=== PATIENT | female | born 1980 | race Caucasian/White ===

== ENCOUNTER 2018-05-23 07:17 | Emergency (ER) | payer MEDICAID ==
[2018-05-23 07:21] VITALS: O2SAT 98; BMI 22.3
--- NOTE | 2018-05-23 07:44 | ED PDOC ---
HPI: Chest Pain Time Seen by Provider: 05/23/18 07:20 Additional History Per: Patient Additional Complaint(s): silvestre [id number] 37 y/o F with PMH of gastritis and lupus comes to the ER c/o 2 days hx of generalized chest pain radiating to abdomen/RUQ. Sharp pain, 10/10, changes with respiration, denies any alleviating factors, associated with nausea, denies any fever, dizziness, blurred vision, palpitations, abdominal pain or dysuria. Patient has been taking ibuprofen at home with some help. PMH: Lupus and Gastritis PSH: Cyst removed from ovary Allg: NKDA Meds: Ibuprofen SH: Denies alcohol, smoking or drug use FH: Denies Past Medical History Vital Signs: Last Vital Signs Temp 98.6 F 05/23/18 07:20 Pulse 97 H 05/23/18 07:20 Resp 17 05/23/18 07:20 BP 125/62 05/23/18 07:20 Pulse Ox 98 05/23/18 07:20 - Family History Family History: States: No Known Family Hx - Home Medications Home Medications: Ambulatory Orders Medication Instructions Recorded Naproxen [Naprosyn] 500 mg PO BID PRN 15 Days #30 05/23/18 tablet - Allergies Allergies/Adverse Reactions: Allergies Allergy/AdvReac Type Severity Reaction Status Date / Time No Known Allergies Allergy Verified 05/23/18 07:27 Physical Exam - Physical Exam Appears: Positive for: Uncomfortable Head Exam: Positive for: NORMAL INSPECTION Skin: Positive for: Normal Color Eye Exam: Positive for: Normal appearance ENT: Positive for: Normal ENT Inspection Neck: Positive for: Normal Cardiovascular/Chest: Positive for: Regular Rate, Rhythm. Negative for: Edema, Bradycardia, Tachycardia Respiratory: Positive for: Normal Breath Sounds. Negative for: Decreased Breath Sounds, Accessory Muscle Use, Crackles Gastrointestinal/Abdominal: Positive for: Normal Exam, Bowel Sounds, Soft. Negative for: Tenderness Back: Positive for: Normal Inspection. Negative for: L CVA Tenderness, R CVA Tenderness Extremity: Positive for: Normal ROM Neurological/Psych: Positive for: Awake, Alert, Normal Tone, research nurse II-XII - Laboratory Results Result Diagrams: 05/23/18 07:40 05/23/18 07:40 - ECG O2 Sat by Pulse Oximetry: 98 - Progress ED Course And Treament: A/P: 37 y/o F with PMH of gastritis and lupus comes to the ER c/o 2 days hx of generalized chest pain radiating to abdomen/RUQ. - CBC - CMP - Trop - UA - EKG - CXR - ZOfran - Toradol Case discussed with Dr. Carbajal Patient understands and agrees with plan Labs: WNL CXR: No acute changes EKG: Reviewed Re-evaluation Time: 09:34 Condition: Improved Disposition - Clinical Impression Clinical Impression: Atypical chest pain - Disposition Referrals: Hector Soto MD [Staff Provider] - [facility] [Provider Group] Disposition: Routine/Home Disposition Time: 09:44 Condition: FAIR Additional Instructions: Follow up with PMD/Rheum in 2-3 days Return to ER if symptoms get worse or do not resolve in 2-3 days Prescriptions: Naproxen [Naprosyn] 500 mg PO BID PRN 15 Days #30 tablet PRN Reason: Pain, Moderate (4-7) Instructions: Chest Pain That Is Not Caused by the Heart (DC), Costochondritis (DC) Forms: [employer] (Bahamian) Print Language: BELARUSIAN
[2018-05-23 07:51] LABS: BASO % 0.3 % (0.0-2.0); HEMOGLOBIN 11.3 g/dL (12.0-16.0); LYMPH # 0.9 K/uL (1.0-4.3); LYMPH % 11.7 % (20.0-40.0); MEAN CELL VOLUME 91.4 fl (81.0-99.0); MEAN CORPUSCULAR HEMOGLOBIN 30.7 pg (27.0-31.0); MEAN CORPUSCULAR HGB CONC 33.5 g/dL (33.0-37.0); MEAN PLATELET VOLUME 8.6 fl (7.2-11.7); MONO # 0.5 K/uL (0.0-0.8); MONO % 6.3 % (0.0-10.0); NEUT # 6.5 K/uL (1.8-7.0); NEUT % 81.7 % (50.0-75.0); NRBC % 0.1 % (0.0-0.0); RBC 3.68 Mil/uL (3.80-5.20); RED CELL DISTRIBUTION WIDTH 12.6 % (11.5-14.5); WHITE BLOOD COUNT 7.9 K/uL (4.8-10.8)
[2018-05-23 08:27] LABS: SQUAMOUS EPITHIAL 2 /hpf (0-5); URINE BACTERIA RARE (<OCC); URINE BILIRUBIN NEGATIVE (NEGATIVE); URINE BLOOD LARGE (NEGATIVE); URINE CALCIUM OXALATE CRYSTALS OCC /hpf (<OCC); URINE CLARITY SLIGHTY-CLOUDY (Clear); URINE COLOR YELLOW (YELLOW); URINE GLUCOSE (UA) NEG (NEGATIVE); URINE LEUKOCYTE ESTERASE NEG Leu/uL (Negative); URINE PROTEIN 30 mg/dL (NEGATIVE); URINE UROBILINOGEN 0.2-1.0 mg/dL (0.2-1.0)
[2018-05-23 08:33] LABS: ALB/GLOB RATIO 0.9 (1.0-2.1); ALT/SGPT 22 U/L (9-52); AST/SGOT 32 U/L (14-36); BLOOD UREA NITROGEN 7 mg/dl (7-17); GFR NON-AFRICAN AMERICAN > 60
--- NOTE | 2018-05-23 08:40 | CARD ---
APPROVED REPORT Date of service: 05/23/2018 EKG Measurement Heart [id number] <Conclusion> Normal sinus rhythm Incomplete right bundle branch block Otherwise normal ECG
--- NOTE | 2018-05-23 09:54 | RAD ---
Date of service: 05/23/2018 PROCEDURE: CHEST RADIOGRAPH, 1 VIEW HISTORY: generalized chest pain COMPARISON: None available. FINDINGS: LUNGS: Clear. PLEURA: No pneumothorax or pleural fluid seen. CARDIOVASCULAR: No aortic atherosclerotic calcification present. Normal. OSSEOUS STRUCTURES: No significant abnormalities. VISUALIZED UPPER ABDOMEN: Normal. OTHER FINDINGS: None. IMPRESSION: No active disease.
[2018-05-23 10:14] VITALS: BP 100/54; PULSE 73; RESP 18; TEMP 98.7
== END 2018-05-23 10:13 | disposition home or self-care (01) ==
LOC: H.ER 07:17
DX: R07.9 Chest pain, unspecified (principal); M32.9 Systemic lupus erythematosus, unspecified; R07.89 Other chest pain
CPT/HCPCS: 71045; 80053; 81003; 81025; 84484; 85025; 93005; 96374; 96375; 99285; J1885; J2405

== ENCOUNTER 2018-05-24 13:54 | Inpatient (IN) | payer MEDICAID ==
[2018-05-24 13:55] VITALS: BMI 22.3
--- NOTE | 2018-05-24 14:32 | ED PDOC ---
HPI: Chest Pain Time Seen by Provider: 05/24/18 14:22 Chief Complaint (Nursing): Chest Pain Chief Complaint (Provider): Chest pain, bodyaches History Per: Patient History/Exam Limitations: no limitations Onset/Duration Of Symptoms: Days Current Symptoms Are (Timing): Still Present Additional Complaint(s): 37yo female, with history of lupus, comes to ER with complaints of bodyaches, chest pain and back pain. Patient was seen in this ER yesterday with same complaints, had a normal workup and was sent home on NSAIDS. Patient reports the pain is persistent but denies any shortness of breath, fever, leg pain or swelling. No additional complaints. PMD: Meli Past Medical History Reviewed: Historical Data, Nursing Documentation, Vital Signs Vital Signs: Last Vital Signs Temp 98.8 F 05/24/18 14:00 Pulse 127 H 05/24/18 14:00 Resp 19 05/24/18 14:00 BP 118/77 05/24/18 14:00 Pulse Ox 98 05/24/18 14:00 - Medical History PMH: Arthritis Denies: Chronic Kidney Disease - Surgical History Surgical History: No Surg Hx - Family History Family History: States: No Known Family Hx - Home Medications Home Medications: Ambulatory Orders Medication Instructions Recorded Naproxen [Naprosyn] 500 mg PO BID PRN 15 Days #30 05/23/18 tablet - Allergies Allergies/Adverse Reactions: Allergies Allergy/AdvReac Type Severity Reaction Status Date / Time No Known Allergies Allergy Verified 05/23/18 07:27 Review of Systems ROS Statement: Except As Marked, All Systems Reviewed And Found Negative Constitutional: Negative for: Fever, Chills Cardiovascular: Positive for: Chest Pain Respiratory: Negative for: Shortness of Breath Musculoskeletal: Positive for: Back Pain Physical Exam - Reviewed Nursing Documentation Reviewed: Yes Vital Signs Reviewed: Yes - Physical Exam Appears: Positive for: Non-toxic, No Acute Distress Head Exam: Positive for: ATRAUMATIC, NORMAL INSPECTION, NORMOCEPHALIC Skin: Positive for: Normal Color Eye Exam: Positive for: EOMI, PERRL Cardiovascular/Chest: Positive for: Regular Rate, Rhythm, Tachycardia. Negative for: Chest Non Tender (+ reproducible anterior chest wall tenderness) Respiratory: Positive for: Normal Breath Sounds. Negative for: Wheezing Gastrointestinal/Abdominal: Positive for: Soft Back: Positive for: Normal Inspection Extremity: Positive for: Normal ROM Neurological/Psych: Positive for: Awake, Alert - ECG O2 Sat by Pulse Oximetry: 98 (RA) Pulse Ox Interpretation: Normal Medical Decision Making Medical Decision Making: Unlikely that chest pain is due to PE, however given 2nd ED visit and tachycardia, will get CTA Chest to r/o PE EKG: Sinus tachycardia at 120, incomplete RBBB -- Scribe Attestation: Documented by Arleth Shelton, acting as a scribe for Preston Carbajal MD Provider Scribe Attestation: All medical record entries made by the Scribe were at my direction and personally dictated by me. I have reviewed the chart and agree that the record accurately reflects my personal performance of the history, physical exam, medical decision making, and the department course for this patient. I have also personally directed, reviewed, and agree with the discharge instructions and disposition. Disposition - Clinical Impression Clinical Impression: Chest pain - Patient ED Disposition Is Patient to be Admitted: Transfer of Care - Disposition Disposition: Transfer of Care Disposition Time: 16:00 Condition: FAIR Forms: [employer] (Korean) Patient Signed Over To: Nadia Méndez (pending CT and reeval)
--- NOTE | 2018-05-24 16:38 | ED PDOC ---
- Laboratory Results Result Diagrams: 05/24/18 21:01 05/24/18 21:01 - ECG O2 Sat by Pulse Oximetry: 98 (RA) Pulse Ox Interpretation: Normal Medical Decision Making Medical Decision Makin Patient signed out to me by Dr. Carbajal pending CTA chest. 20:01 CTA Chest FINDINGS: PULMONARY ARTERIES No evidence of central or segmental pulmonary embolism is seen. AORTA There is no evidence for aneurysm or dissection of the thoracic aorta. LUNGS Minimal pneumonic consolidation and/or atelectasis in the posterior right and left lung base. PLEURAL SPACES No pneumothorax evident. A small right pleural effusion is present. HEART Normal heart size. No pericardial effusion. LYMPH NODES No lymphadenopathy is evident. BONES No focal osseous abnormality or acute fracture. UPPER ABDOMEN Images of the upper abdomen are unremarkable. IMPRESSION: 1. No identification of PE. 2. Posterior right and left lower lobe pneumonic consolidation. 3. Trace right pleural effusion. 20:54 pt aware of results. abx started. Paging Dr. Vasquez for admission 21:15 Patient's EKG reveals sinus tachycardia in the 120s. PMD, Dr. Bautista does not admit to the ED. Will instead admit to medical services on-call, Dr. Vasquez who accepted patient. Diagnoses of pneumonia and Lupus. Used [employer] mail handler #[id number] to communicate this information to patient. She demonstrates full understanding of plan for admission. iv fluids and pain meds ordered echo ordered Scribe Attestation: Documented by Arleth Shelton, acting as a scribe for Nadia Méndez MD Provider Scribe Attestation: All medical record entries made by the Scribe were at my direction and personally dictated by me. I have reviewed the chart and agree that the record accurately reflects my personal performance of the history, physical exam, medical decision making, and the department course for this patient. I have also personally directed, reviewed, and agree with the discharge instructions and disposition. Disposition Counseled Patient/Family Regarding: Studies Performed, Diagnosis - Clinical Impression Clinical Impression: Chest pain, Pneumonia - POA Present On Arrival: None - Disposition Disposition: Hospitalized as Observation Patient Disposition Time: 21:15 Condition: FAIR
[2018-05-24] MEDS ORDERED: Iodixanol 320 MG/ML 100 ML BOTTLE IV ONE (18:23)
[2018-05-24] MEDS ORDERED: Sodium Chloride 0.9% 50 ML IV ONE (18:23)
[2018-05-24] MEDS ORDERED: Sodium Chloride 0.9% 1,000 ML IV STA (20:36)
[2018-05-24] MEDS ORDERED: Azithromycin 500 MG in Sodium Chloride 0.9% 250 ML IVPB STA (20:37)
[2018-05-24 21:06] LABS: BASO % 0.4 % (0.0-2.0); EOS % 0.4 % (0.0-4.0); HEMOGLOBIN 10.5 g/dL (12.0-16.0); LYMPH # 1.2 K/uL (1.0-4.3); LYMPH % 16.1 % (20.0-40.0); MEAN CELL VOLUME 91.6 fl (81.0-99.0); MEAN CORPUSCULAR HEMOGLOBIN 30.6 pg (27.0-31.0); MEAN CORPUSCULAR HGB CONC 33.4 g/dL (33.0-37.0); MEAN PLATELET VOLUME 8.4 fl (7.2-11.7); MONO # 0.4 K/uL (0.0-0.8); MONO % 5.5 % (0.0-10.0); NEUT # 5.8 K/uL (1.8-7.0); NEUT % 77.6 % (50.0-75.0); RBC 3.43 Mil/uL (3.80-5.20); RED CELL DISTRIBUTION WIDTH 12.4 % (11.5-14.5); WHITE BLOOD COUNT 7.4 K/uL (4.8-10.8)
[2018-05-24 21:19] LABS: ALB/GLOB RATIO 0.9 (1.0-2.1); ALBUMIN 3.8 g/dL (3.5-5.0); ALT/SGPT 17 U/L (9-52); AST/SGOT 25 U/L (14-36); BLOOD UREA NITROGEN 13 mg/dl (7-17); CALCIUM 8.8 mg/dL (8.4-10.2); GFR NON-AFRICAN AMERICAN > 60
[2018-05-24] MEDS ORDERED: cefTRIAXone (Rocephin) 1 gm Inj ONE (21:23)
[2018-05-24] MEDS ORDERED: Azithromycin 500 MG IV IVPB ONE (21:24)
[2018-05-25] MEDS ORDERED: Pneumococcal 23-Valent Vaccine IM ONE (06:00)
--- NOTE | 2018-05-25 08:28 | CARD ---
APPROVED REPORT Date of service: 05/24/2018 EKG Measurement Heart [id number] <Conclusion> Sinus tachycardia Incomplete right bundle branch block Borderline ECG
--- NOTE | 2018-05-25 09:19 | CT ---
Date of service: 05/24/2018 PROCEDURE: CT Chest with contrast (Pulmonary Angiogram) HISTORY: Chest pain, tachycardia COMPARISON: None available. TECHNIQUE: Axial computed tomography images were obtained of the chest in the pulmonary arterial phase of enhancement. Coronal and sagittal reformatted images were created and reviewed. Intravenous contrast dose: 90 mL Visipaque 320 Radiation dose: Total exam DLP = 194.62 mGy-cm. This CT exam was performed using one or more of the following dose reduction techniques: Automated exposure control, adjustment of the mA and/or kV according to patient size, and/or use of iterative reconstruction technique. FINDINGS: PULMONARY ARTERIES: No central or segmental pulmonary emboli appreciated.. AORTA: No acute findings. No thoracic aortic aneurysm. No aortic atherosclerotic calcification or mural plaque present. LUNGS: Trace bibasilar subsegmental atelectatic changes peripheral and subpleural. PLEURAL SPACES: No pneumothorax. Trace posterior dependent pleural thickening. Possible trace right pleural effusion. HEART: Unremarkable. No cardiomegaly. No significant pericardial effusion. LYMPH NODES: No lymphadenopathy. BONES, CHEST WALL: Unremarkable. No fracture or destructive lesion OTHER FINDINGS: Unremarkable. IMPRESSION: . No pulmonary embolus. Trace subsegmental subpleural dependent atelectatic changes. Trace posterior pleural thickening. Possible trace minimal right pleural effusion. Concordant results (preliminary interpretation) provided by [employer].
[2018-05-25] MEDS: Azithromycin 500 MG in Sodium Chloride 0.9% 250 ML IVPB SCH (09:20)
[2018-05-25 11:11] LABS: ABG ALLEN TEST YES; ARTERIAL BLOOD GAS HCO3 26.4 mmol/L (21-28); ARTERIAL BLOOD GAS O2 SAT 98.2 % (95-98); ARTERIAL BLOOD GAS PCO2 36 mm/Hg (35-45); ARTERIAL BLOOD GAS PH 7.46 (7.35-7.45); ARTERIAL BLOOD GAS PO2 84 mm/Hg (80-100); ARTERIAL BLOOD GAS TCO2 26.7 mmol/L (22-28)
[2018-05-25 11:38] LABS: T3 0.762 nmol/L (1.49-2.60)
[2018-05-25] MEDS: Sodium Chloride 0.9% 1,000 ML IV SCH (14:01)
--- NOTE | 2018-05-25 14:42 | CP.PCM.CON ---
<Donovan Olmos - Last Filed: 05/25/18 16:07> History of Present Illness - History of Present Illness History of Present Illness: Donovan Olmos, PGY-1, Cardiology Consult Note for Dr. Fu 37 year old female with past medical history of SLE and endometriosis presents to [facility] for right upper quadrant pain radiating to the chest starting 11 days ago. Patient reports that the pain is worse with breathing and has no remitting factors. Patient is visibly in distress on presentation. Patient reports the pain is worst along the right ribs. Patient also reports dizziness improved with rest. Patient denies shortness of breath, nausea, fevers, chills, diaphoresis. PMH: as stated above PSH: surgery for endometriosis (unknown what was done) Allergies: NKDA FMHx: father had stroke at 64, mother has HLD SHx: denies smoking, recreational drug use, occasionally drinks alcohol PMD: Dr. Valenzuela Product Manager E Commerce: Dr. Morfin Review of Systems - Review of Systems Review of Systems: except for what was mentioned above Past Patient History - Infectious Disease Hx of Infectious Diseases: None - Past Social History Smoking Status: Never Smoked - CARDIAC Hx Cardiac Disorders: No - PULMONARY Hx Respiratory Disorders: No - NEUROLOGICAL Hx Neurological Disorder: No - HEENT Hx HEENT Problems: No - RENAL Hx Chronic Kidney Disease: No - ENDOCRINE/METABOLIC Hx Endocrine Disorders: Yes Hx Systemic Lupus Erythematosus: Yes - HEMATOLOGICAL/ONCOLOGICAL Hx Blood Disorders: No - INTEGUMENTARY Hx Dermatological Problems: No - MUSCULOSKELETAL/RHEUMATOLOGICAL Hx Arthritis: Yes Hx Falls: No - GASTROINTESTINAL Hx Gastrointestinal Disorders: No - GENITOURINARY/GYNECOLOGICAL Hx Genitourinary Disorders: No - PSYCHIATRIC Hx Psychophysiologic Disorder: No Hx Substance Use: No - SURGICAL HISTORY Hx Surgeries: Yes Other/Comment: ovarian cyst removal - ANESTHESIA Hx Anesthesia: Yes Hx Anesthesia Reactions: No Meds Allergies/Adverse Reactions: Allergies Allergy/AdvReac Type Severity Reaction Status Date / Time No Known Allergies Allergy Verified 05/23/18 07:27 - Medications Medications: Current Medications Acetaminophen (Tylenol 325mg Tab) 650 mg PO Q6 PRN PRN Reason: Pain, Mild (1-3) Ceftriaxone Sodium 1 gm/ (Sodium Chloride) 100 mls @ 100 mls/hr IVPB DAILY [place]; Protocol Last Admin: 05/25/18 11:55 Dose: 100 mls/hr Azithromycin 500 mg/ Sodium (Chloride) 250 mls @ 250 mls/hr IVPB DAILY [facility]; Protocol Last Admin: 05/25/18 09:20 Dose: 250 mls/hr Sodium Chloride (Sodium Chloride 0.9%) 1,000 mls @ 75 mls/hr IV .[id number] [place] Stop: 05/26/18 11:31 Last Admin: 05/25/18 14:01 Dose: 75 mls/hr Ketorolac Tromethamine (Toradol) 30 mg IVP Q6 PRN PRN Reason: Pain, moderate (4-7) Morphine Sulfate (Morphine) 2 mg IVP Q4 PRN PRN Reason: Pain, severe (8-10) Last Admin: 05/25/18 14:03 Dose: 2 mg Physical Exam - Constitutional Appears: In Acute Distress, Agitated - Head Exam Head Exam: ATRAUMATIC, NORMAL INSPECTION, NORMOCEPHALIC - Eye Exam Eye Exam: EOMI, PERRL - ENT Exam ENT Exam: Mucous Membranes Moist - Respiratory Exam Respiratory Exam: Clear to Auscultation Bilateral, NORMAL BREATHING PATTERN - Cardiovascular Exam Cardiovascular Exam: Tachycardia, REGULAR RHYTHM, +S1, +S2 - GI/Abdominal Exam GI & Abdominal Exam: Normal Bowel Sounds, Soft. absent: Tenderness - Extremities Exam Extremities exam: Positive for: full ROM, normal inspection. Negative for: pedal edema - Neurological Exam Neurological exam: Alert, CN II-XII Intact, Normal Gait, Oriented x3 - Skin Skin Exam: Dry, Intact, Normal Color Results - Vital Signs Recent Vital Signs: Last Vital Signs Temp 98.6 F 05/25/18 11:45 Pulse 147 H 05/25/18 11:45 Resp 18 05/25/18 11:45 BP 103/69 05/25/18 11:45 Pulse Ox 96 05/25/18 11:45 - Labs Result Diagrams: 05/24/18 21:01 05/24/18 21:01 Labs: Laboratory Results - last 24 hr 05/24/18 05/24/18 05/24/18 16:25 21:01 21:01 WBC 7.4 RBC 3.43 L Hgb 10.5 L Hct 31.4 L MCV 91.6 MCH 30.6 MCHC 33.4 RDW 12.4 Plt Count 208 MPV 8.4 Neut % (Auto) 77.6 H Lymph % (Auto) 16.1 L Hernando % (Auto) 5.5 Eos % (Auto) 0.4 Baso % (Auto) 0.4 Neut # (Auto) 5.8 Lymph # (Auto) 1.2 Hernando # (Auto) 0.4 Eos # (Auto) 0.0 Baso # (Auto) 0.0 pCO2 pO2 HCO3 ABG pH ABG Total CO2 ABG O2 Saturation ABG Base Excess Lisandro Test ABG Potassium A-a O2 Difference Glucose Lactate FiO2 Sodium 139 Potassium 3.6 Chloride 103 Carbon Dioxide 29 Anion Gap 11 BUN 13 Creatinine 0.7 Est GFR ( Amer) > 60 Est GFR (Non-Af Amer) > 60 Random Glucose 105 Calcium 8.8 Total Bilirubin 0.3 AST 25 ALT 17 Alkaline Phosphatase 90 Troponin I < 0.0120 Total Protein 8.1 Albumin 3.8 Globulin 4.3 H Albumin/Globulin Ratio 0.9 L Thyroxine (T4) Total T3 TSH 3rd Generation Arterial Blood Potassium 05/25/18 05/25/18 05/25/18 09:50 09:53 12:05 WBC RBC Hgb Hct MCV MCH MCHC RDW Plt Count MPV Neut % (Auto) Lymph % (Auto) Hernando % (Auto) Eos % (Auto) Baso % (Auto) Neut # (Auto) Lymph # (Auto) Hernando # (Auto) Eos # (Auto) Baso # (Auto) pCO2 36 pO2 84 HCO3 26.4 ABG pH 7.46 H ABG Total CO2 26.7 ABG O2 Saturation 98.2 H ABG Base Excess 1.9 Lisandro Test Yes ABG Potassium 3.7 A-a O2 Difference 21.0 Glucose 114 H Lactate 0.7 FiO2 21.0 Sodium 138.0 Potassium Chloride 108.0 H Carbon Dioxide Anion Gap BUN Creatinine Est GFR ( Amer) Est GFR (Non-Af Amer) Random Glucose Calcium Total Bilirubin AST ALT Alkaline Phosphatase Troponin I < 0.0120 Total Protein Albumin Globulin Albumin/Globulin Ratio Thyroxine (T4) 7.07 Total T3 0.762 L TSH 3rd Generation 0.63 Arterial Blood Potassium 3.7 Assessment & Plan - Assessment and Plan (Free Text) Assessment: Sinus tachycardia SLE Plan: Chest pain with ACS rule out vs. pneumonia vs. SLE Sinus tachycardia SLE Chest CT: no PE, trace subsegmental subpleural dependent atelectatic changes. Trace posterior pleural thickening. Possible trace minimal right pleural effusion EKG: sinus tachycardia with HR: 120 Tropx2: negative TSH: 0.63 T3: 0.762 T4: 7.07 Will follow up echocardiogram Medications: Ceftriaxone Azithromycin - Date & Time Date: 05/25/18 Time: 14:42 <Ajit Fu - Last Filed: 05/25/18 23:22> Meds - Medications Medications: Current Medications Acetaminophen (Tylenol 325mg Tab) 650 mg PO Q6 PRN PRN Reason: Pain, Mild (1-3) Cyclobenzaprine HCl (Flexeril) 10 mg PO HS PRN PRN Reason: Muscle spasm Ceftriaxone Sodium 1 gm/ (Sodium Chloride) 100 mls @ 100 mls/hr IVPB DAILY [place]; Protocol Last Admin: 05/25/18 11:55 Dose: 100 mls/hr Azithromycin 500 mg/ Sodium (Chloride) 250 mls @ 250 mls/hr IVPB DAILY [place]; Pro tocol Last Admin: 05/25/18 09:20 Dose: 250 mls/hr Sodium Chloride (Sodium Chloride 0.9%) 1,000 mls @ 75 mls/hr IV .[id number] [place] Stop: 05/26/18 11:31 Last Admin: 05/25/18 14:01 Dose: 75 mls/hr Sodium Chloride (Sodium Chloride 0.9%) 1,000 mls @ 999 mls/hr IV .[id number] [place] Stop: 05/26/18 15:36 Last Admin: 05/25/18 16:34 Dose: 999 mls/hr Ketorolac Tromethamine (Toradol) 30 mg IVP Q6 PRN PRN Reason: Pain, moderate (4-7) Morphine Sulfate (Morphine) 2 mg IVP Q4 PRN PRN Reason: Pain, severe (8-10) Last Admin: 05/25/18 21:11 Dose: 2 mg Results - Vital Signs Recent Vital Signs: Last Vital Signs Temp 98.1 F 05/25/18 21:39 Pulse 155 H 05/25/18 21:39 Resp 21 05/25/18 21:39 BP 119/87 05/25/18 21:39 Pulse Ox 96 05/25/18 21:39 - Labs Result Diagrams: 05/24/18 21:01 05/24/18 21:01 Labs: Laboratory Results - last 24 hr 05/25/18 05/25/18 05/25/18 09:50 09:53 12:05 pCO2 36 pO2 84 HCO3 26.4 ABG pH 7.46 H ABG Total CO2 26.7 ABG O2 Saturation 98.2 H ABG Base Excess 1.9 Lisandro Test Yes ABG Potassium 3.7 A-a O2 Difference 21.0 Sodium 138.0 Chloride 108.0 H Glucose 114 H Lactate 0.7 FiO2 21.0 POC Glucose (mg/dL) Troponin I < 0.0120 Thyroxine (T4) 7.07 Total T3 0.762 L TSH 3rd Generation 0.63 Arterial Blood Potassium 3.7 Influenza Typ A,B (EIA) 05/25/18 05/25/18 05/25/18 15:30 20:30 21:11 pCO2 pO2 HCO3 ABG pH ABG Total CO2 ABG O2 Saturation ABG Base Excess Lisandro Test ABG Potassium A-a O2 Difference Sodium Chloride Glucose Lactate FiO2 POC Glucose (mg/dL) 141 H Troponin I < 0.0120 Thyroxine (T4) Total T3 TSH 3rd Generation Arterial Blood Potassium Influenza Typ A,B (EIA) Negative for flu a/b Attending/Attestation - Attestation I have personally seen and examined this patient.: Yes I have fully participated in the care of the patient.: Yes I have reviewed all pertinent clinical information: Yes Notes (Text): 05/25/18 23:21 chest pain pleuritic in nature echo tachycardia 2' to pain IVF hydration pain control ESR/CRP
[2018-05-25] MEDS ORDERED: Sodium Chloride 0.9% 1,000 ML IV SCH (15:45)
--- NOTE | 2018-05-25 16:57 | PCM.RRT ---
<Tavon Rocha - Last Filed: 05/25/18 17:00> HEALTH SCIENCE INSTRUCTOR Nurse Assessment - Situation HEALTH SCIENCE INSTRUCTOR Reason for Call: Chest Pain I.Reason for HEALTH SCIENCE INSTRUCTOR - A) Acute Change in Patient: (Select all that apply): Chest Pain Subjective: 37 yo talia with PMH of SLE and endometriosis was admitted to [facility] due to chest pain. HEALTH SCIENCE INSTRUCTOR was called today at 3:20 due to patient complaining of chest pain. Medical team arrived, Patient was complaining of chest pain, she was awake and alert, her heart rate was on 140s, and tachypnea. Patient report pain is worsen when deep breathing and with palpation of chest, Patient was placed on IVF, given toradol and ativan. EKG was WNL except for sinus tackycardia. After medication patient heart rate improved, and symptoms improved. Urine tox sent HEALTH SCIENCE INSTRUCTOR was done at 3:40 with final diagnosis SLE induce chest pain. PCP notified PMD: Dr. Valenzuela Pumping Station Supervisor: Dr. Morfin Intervention IVFB 1000 Toradol 30 Ativan 0.5 urine tox Case discussed with dr garcia - Neurological Status (Select all that apply): Alert - Constitutional Appears: Well, Non-toxic, No Acute Distress - Head Head Exam: ATRAUMATIC, NORMAL INSPECTION, NORMOCEPHALIC - Eyes Eye Exam: EOMI, Normal appearance, PERRL - Respiratory Exam Respiratory Exam: Chest Wall Tenderness, Clear to Ausculation Bilateral, NORMAL BREATHING PATTERN - Cardiovascular Exam Cardiovascular Exam: REGULAR RHYTHM, +S1, +S2 - GI/Abdominal Exam GI & Abdominal Exam: Soft, Normal Bowel Sounds - Neurological Exam Neurological Exam: Alert, Awake, CN II-XII Intact, Normal Gait, Oriented x3 - Extremities Exam Extremities Exam: Full ROM, Normal Capillary Refill, Normal Inspection <Tanya Garcia - Last Filed: 05/25/18 17:38> Attending/Attestation - Attestation I have personally seen and examined this patient.: Yes I have fully participated in the care of the patient.: Yes I have reviewed all pertinent clinical information, including history, physical exam and plan: Yes Notes (Text): HEALTH SCIENCE INSTRUCTOR called due to Tachycardia to 150 Responded to the HEALTH SCIENCE INSTRUCTOR with the residents. Sinus Tachycardia Hx of SLE - EKG : sinus rhythm - BP stable 115/88 , saturation =99% on 2 liters, HR= 140, afebrile -Reviewed labs , imaging - CTA of Chest : no PE, TSH normal, Troponin x 2 negative - Bolus IVF 1 liter , Toradol stat for pain, Ativan 0.5 mg IV x 1 - Pt's Pumping Station Supervisor - DR Fu notified of even , discussed case - rec IVF hydration and pain mgt - Pt's PMD - Dr Vasquez/ Marysol Brooks notified of event
--- NOTE | 2018-05-25 19:52 | CARD ---
APPROVED REPORT Date of service: 05/25/2018 EXAM: Two-dimensional and M-mode echocardiogram with Doppler and color Doppler. Other Information Quality : GoodRhythm : Tachycardia Technically limited study due to Pt done sitting up INDICATION Pericardial Effusion 2D DIMENSIONS IVSd0.98 (0.7-1.1cm)LVDd3.45 (3.9-5.9cm) PWd1.20 (0.7-1.1cm)IVSs1.16 (0.8-1.2cm) LVDs2.71 (2.5-4.0cm)FS (%) 21.4 % PWs1.47 (0.8-1.2cm) M-Mode DIMENSIONS Left Atrium (MM)2.75 (2.5-4.0cm)IVSd0.93 (0.7-1.1cm) Aortic Root2.20 (2.2-3.7cm)LVDd3.61 (4.0-5.6cm) Aortic Cusp Exc.1.77 (1.5-2.0cm)PWd1.10 (0.7-1.1cm) IVSs1.31 cmFS (%) 27 % LVDs2.63 (2.0-3.8cm)PWs1.63 cm Mitral Valve E/A ratio0.0 TDI E/Lateral E'0.0E/Medial E'0.0 LEFT VENTRICLE The left ventricle is normal size. There is normal left ventricular wall thickness. The left ventricular systolic function is normal. The estimated ejection fraction is 55-60% No regional wall motion abnormalities noted.. Transmitral Doppler flow pattern is Grade I-abnormal relaxation pattern. No left ventricle thrombus noted on this study. There is no ventricular septal defect visualized. There is no left ventricular aneurysm. There is no mass noted in the left ventricle. RIGHT VENTRICLE The right ventricle is normal size. There is normal right ventricular wall thickness. The right ventricular systolic function is normal. ATRIA The left atrium size is normal. The right atrium size is normal. The interatrial septum is intact with no evidence for an atrial septal defect. AORTIC VALVE The aortic valve is normal in structure. No aortic regurgitation is present. There is no aortic valvular stenosis. There is no aortic valvular vegetation. MITRAL VALVE The mitral valve is normal in structure. There is no evidence of mitral valve prolapse. There is no mitral valve stenosis. There is no mitral valve regurgitation noted. TRICUSPID VALVE The tricuspid valve is normal in structure. There is no tricuspid valve regurgitation noted. There is no tricuspid valve prolapse or vegetation. There is no tricuspid valve stenosis. PULMONIC VALVE The pulmonary valve is normal in structure. There is no pulmonic valvular regurgitation. There is no pulmonic valvular stenosis. GREAT VESSELS The aortic root is normal in size. The ascending aorta is normal in size. The pulmonary artery is normal. The IVC is normal in size and collapses >50% with inspiration. PERICARDIAL EFFUSION There is small circumferential pericardial effusion. No signs of tamponade. There is no pleural effusion. <Conclusion> Technically difficult study The estimated ejection fraction is 55-60% Transmitral Doppler flow pattern is Grade I-abnormal relaxation pattern. The left atrium size is normal. The right atrium size is normal. The right ventricular systolic function is normal. There is no tricuspid valve regurgitation noted. There is small circumferential pericardial effusion. No signs of tamponade.
--- NOTE | 2018-05-25 21:27 | PCM.RRT ---
SLOT TECHNICIAN Nurse Assessment - Situation Location: [address] [place] [address] Room Number: 406-2 SLOT TECHNICIAN Reason for Call: Chest Pain, Tachycardia SLOT TECHNICIAN Called By: RN - IV IV Inserted during SLOT TECHNICIAN?: No IV Fluids Initiated During SLOT TECHNICIAN?: N/A - Respiratory Oxygen Delivery Method: Nasal Cannula Received Nebulizer Treatments: No Was the Patient Ventilated with Bag/Mask 100% O2?: No Secretions Suctioned?: No Was the Patient Intubated?: No Was the Patient Placed on a Ventilator?: No - Medication Medications Administered During SLOT TECHNICIAN: Morphine 2mg IV x1 dose given by Geeta Molina RN - Diagnostic Test Ordered EKG: Yes (Sinus Tachycardia) Chest X-Ray: No CT Scan: No CPR started during SLOT TECHNICIAN?: No - Vital Signs Vital Signs: Rapid Response Vital Sign Blood Pressure 126/76 Pulse Rate 163 Respiratory Rate 24 Temperature 98.1 F Oxygen Saturation 97 - Time SLOT TECHNICIAN Ended Time SLOT TECHNICIAN Ended: 21:10 - Vital Signs at end of SLOT TECHNICIAN Vital Signs at end of SLOT TECHNICIAN: Rapid Response End Vital Sign Blood Pressure 112/70 Pulse Rate 157 Respiratory Rate 35 Temperature 98.1 F O2 Sat by Pulse Oximetry 98 - Recommendations SLOT TECHNICIAN Level of Care Recommendations: Remain in current setting I.Reason for SLOT TECHNICIAN - A) Acute Change in Patient: Subjective: SLOT TECHNICIAN SLOT TECHNICIAN Time: 9:00pm SLOT TECHNICIAN Location: [facility] SLOT TECHNICIAN Arrival: 9:01 SLOT TECHNICIAN Reason: Chest pain, sinus tachy S: Pt is a 37 yo F with a pmh of lupus and endometriosis admitted to [facility] due to pnemonia, tachycardia, and lupus SLOT TECHNICIAN was called due to pleuritic chest pain across anterior chest wall with radiation to ribs, reproducible to palpation. O: Vitals: BP: 118/82 HR: 160 RR: 24 O2Sat 93% on RA General: In acute distress, tachypneic HEENT: Nasal cannula 2L Cardiac: Tachycardic, no m/r/g Chest: Chest pain reproducible to palpation R and L chest wall Resp: CTA, no wheezes, rales, or rhonchi Abdo: soft, nontender to palpation Extrem: no edema Skin: dry SLOT TECHNICIAN intervention: EKG- sinus tachycardia Morphine 2mg Xanax 0.5mg Once Flexeril 10mg PO HS PRN A/P: 37 yo F with a pmh of lupus and endometriosis admitted to [facility] due to pnemonia, tachycardia, and lupus SLOT TECHNICIAN called for pleuritic chest pain, sinus tachy SLOT TECHNICIAN Outcome: Symptoms improved after intervention. Pt had a previous SLOT TECHNICIAN called earlier today where Trops x2 negative, CTA of chest no PE, TSH normal. SLOT TECHNICIAN vitals: BP:112/70 RR 35 O2 Sat:98% on 2 L, HR 157 T: 98.1 SLOT TECHNICIAN end: 9:18pm SLOT TECHNICIAN Leader: Dr. Lentz SLOT TECHNICIAN residents: Dr. Betancourt PGY [address] Hdz PGY 1
[2018-05-26] MEDS: Sodium Chloride 0.9% 1,000 ML IV SCH (01:06)
[2018-05-26] MEDS: Azithromycin 500 MG in Sodium Chloride 0.9% 250 ML IVPB SCH (09:13)
--- NOTE | 2018-05-26 09:31 | US ---
Date of service: 05/26/2018 HISTORY: ruq pain, tenderness COMPARISON: CT angiogram chest 05/24/2018. TECHNIQUE: Sonographic evaluation of the right upper quadrant of the abdomen. FINDINGS: LIVER: Measures 18.1 cm in length. Normal echogenicity of the liver parenchyma. No mass. No intrahepatic bile duct dilatation. GALLBLADDER: Gallbladder appears moderately distended mural thickening up to 3.5 mm and small cayla cholecystic fluid collections measuring up to 2.3 cm greatest dimension anteriorly but smaller posteriorly. No cholelithiasis identified within the gallbladder lumen and the pattern may reflect acalculous cholecystitis. Clinically correlate further. Consider follow-up nuclear better renal scan for added characterization. COMMON BILE DUCT: Measures 3.9 mm. No stones. No dilatation. PANCREAS: Unremarkable as visualized. No mass. No ductal dilatation. RIGHT KIDNEY: Measures 12.2 cm in length. Normal echogenicity. No calculus, mass, or hydronephrosis. AORTA: No aneurysmal dilatation. IVC: Unremarkable. OTHER FINDINGS: None . IMPRESSION: Mural thickening the gallbladder is identified with pericholecystic fluid suspicious for potential acalculous cholecystitis. Normal CBD caliber. No intrahepatic biliary dilatation identified. Calculus cholecystitis. Consider follow-up nuclear better be scan for added characterization. Prior chest CT 05/24/2018 does not fully captured the gallbladder fossa but does not show gross pericholecystic fluid collection at the upper portion. Consider follow-up abdomen pelvis CT with contrast as well. The remainder of the examination appears unremarkable.
--- NOTE | 2018-05-26 10:26 | CP.PCM.CON ---
<Miguel A Cote - Last Filed: 05/26/18 11:06> History of Present Illness - History of Present Illness History of Present Illness: General Surgery Consult for Dr. Wayne Reason for consult: abdominal pain, questionable cholecystitis 37 F with PMH that includes SLE presents to [facility] for complaint of abdominal pain. Patient was seen and evaluated on the telemetry smith. Patient states that abdominal pain began Wednesday. Patient reports that pain began suddenly and has gotten progressively worse. She denies fever/chills or nausea/vomiting. She rates pain as severe located in the epigatric and RUQ without radiation. She describes it as constant and sharp. Movement/positions/palpation aggravtes her symptoms while nothing specifically alleviates it. She reports generalized malaise and fatigue. She has never pain like this in the past. ABUS was done which showed questionable pericholecystic fluid and GB wall thickening. CT chest with PE protocol was done upon admission and was negative for PE. Patient appears visible uncomfortable in pain. DEVELOPMENT TECHNICAL LEAD was called yesterday twice for chest pain and tachycardia; one at 16:55 and the second at 21:01. PMD: Dr. Vasquez PMH: SLE PSH: Denies ALL: NKDA Review of Systems - Review of Systems All systems: reviewed and no additional remarkable complaints except (as per HPI) Past Patient History - Infectious Disease Hx of Infectious Diseases: None - Past Social History Smoking Status: Never Smoked - CARDIAC Hx Cardiac Disorders: No - PULMONARY Hx Respiratory Disorders: No - NEUROLOGICAL Hx Neurological Disorder: No - HEENT Hx HEENT Problems: No - RENAL Hx Chronic Kidney Disease: No - ENDOCRINE/METABOLIC Hx Endocrine Disorders: Yes Hx Systemic Lupus Erythematosus: Yes - HEMATOLOGICAL/ONCOLOGICAL Hx Blood Disorders: No - INTEGUMENTARY Hx Dermatological Problems: No - MUSCULOSKELETAL/RHEUMATOLOGICAL Hx Arthritis: Yes Hx Falls: No - GASTROINTESTINAL Hx Gastrointestinal Disorders: No - GENITOURINARY/GYNECOLOGICAL Hx Genitourinary Disorders: No - PSYCHIATRIC Hx Psychophysiologic Disorder: No Hx Substance Use: No - SURGICAL HISTORY Hx Surgeries: Yes Other/Comment: ovarian cyst removal - ANESTHESIA Hx Anesthesia: Yes Hx Anesthesia Reactions: No Meds Allergies/Adverse Reactions: Allergies Allergy/AdvReac Type Severity Reaction Status Date / Time No Known Allergies Allergy Verified 05/23/18 07:27 - Medications Medications: Current Medications Acetaminophen (Tylenol 325mg Tab) 650 mg PO Q6 PRN PRN Reason: Pain, Mild (1-3) Cyclobenzaprine HCl (Flexeril) 10 mg PO HS PRN PRN Reason: Muscle spasm Last Admin: 05/26/18 00:04 Dose: 10 mg Ceftriaxone Sodium 1 gm/ (Sodium Chloride) 100 mls @ 100 mls/hr IVPB [facility]ILY [facility]; Protocol Last Admin: 05/26/18 09:12 Dose: 100 mls/hr Azithromycin 500 mg/ Sodium (Chloride) 250 mls @ 250 mls/hr IVPB [facility]; Protocol Last Admin: 05/26/18 09:13 Dose: 250 mls/hr Sodium Chloride (Sodium Chloride 0.9%) 1,000 mls @ 75 mls/hr IV .[id number] [facility] Stop: 05/26/18 11:31 Last Admin: 05/26/18 01:06 Dose: Not Given Ketorolac Tromethamine (Toradol) 30 mg IVP Q6 PRN PRN Reason: Pain, moderate (4-7) Last Admin: 05/26/18 05:14 Dose: 30 mg Morphine Sulfate (Morphine) 2 mg IVP Q4 PRN PRN Reason: Pain, severe (8-10) Last Admin: 05/26/18 01:57 Dose: 2 mg Physical Exam - Constitutional Appears: In Acute Distress (due to abd pain) - Head Exam Head Exam: ATRAUMATIC, NORMOCEPHALIC - Eye Exam Eye Exam: EOMI, Normal appearance Pupil Exam: PERRL - ENT Exam ENT Exam: Mucous Membranes Dry - Respiratory Exam Respiratory Exam: NORMAL BREATHING PATTERN - Cardiovascular Exam Cardiovascular Exam: Tachycardia - GI/Abdominal Exam GI & Abdominal Exam: Guarding (voluntary), Soft, Tenderness (epigastrium and RUQ; severe). absent: Distended, Firm, Hernia, Mass, Rebound, Rigid - Rectal Exam Rectal Exam: Deferred - Extremities Exam Extremities exam: Positive for: normal capillary refill, pedal pulses present. Negative for: calf tenderness - Back Exam Back exam: absent: CVA tenderness (L), CVA tenderness (R) - Neurological Exam Neurological exam: Alert, CN II-XII Intact, Oriented x3 - Psychiatric Exam Psychiatric exam: Anxious - Skin Skin Exam: Dry, Normal Color, Warm Results - Vital Signs Recent Vital Signs: Last Vital Signs Temp 100.1 F H 05/26/18 07:50 Pulse 133 H 05/26/18 07:50 Resp 18 05/26/18 07:50 BP 102/70 05/26/18 07:50 Pulse Ox 98 05/26/18 07:50 - Labs Result Diagrams: 05/24/18 21:01 05/24/18 21:01 Labs: Laboratory Results - last 24 hr 05/25/18 05/25/18 05/25/18 09:50 09:53 12:05 pCO2 36 pO2 84 HCO3 26.4 ABG pH 7.46 H ABG Total CO2 26.7 ABG O2 Saturation 98.2 H ABG Base Excess 1.9 Lisandro Test Yes ABG Potassium 3.7 A-a O2 Difference 21.0 Sodium 138.0 Chloride 108.0 H Glucose 114 H Lactate 0.7 FiO2 21.0 POC Glucose (mg/dL) Troponin I < 0.0120 Thyroxine (T4) 7.07 Total T3 0.762 L TSH 3rd Generation 0.63 Arterial Blood Potassium 3.7 Influenza Typ A,B (EIA) 05/25/18 05/25/18 05/25/18 15:30 20:30 21:11 pCO2 pO2 HCO3 ABG pH ABG Total CO2 ABG O2 Saturation ABG Base Excess Lisandro Test ABG Potassium A-a O2 Difference Sodium Chloride Glucose Lactate FiO2 POC Glucose (mg/dL) 141 H Troponin I < 0.0120 Thyroxine (T4) Total T3 TSH 3rd Generation Arterial Blood Potassium Influenza Typ A,B (EIA) Negative for flu a/b Assessment & Plan - Assessment and Plan (Free Text) Assessment: 37F with PMH SLE presents with upper abdominal pain Plan: -NPO -IVF -Pain control -Stat labs -Stat CXR -CT abd/pelvis with PO & IV contrast -HIDA -Serial abd exams -Monitor for bowel function -Discussed with Dr. Neel Cote PGY2 - Date & Time Date: 05/26/18 Time: 11:04 <Renny Shaikh - Last Filed: 05/26/18 11:28> Meds - Medications Medications: Current Medications Acetaminophen (Tylenol 325mg Tab) 650 mg PO Q6 PRN PRN Reason: Pain, Mild (1-3) Cyclobenzaprine HCl (Flexeril) 10 mg PO HS PRN PRN Reason: Muscle spasm Last Admin: 05/26/18 00:04 Dose: 10 mg Ceftriaxone Sodium 1 gm/ (Sodium Chloride) 100 mls @ 100 mls/hr IVPB DAILY [facility]; Protocol Last Admin: 05/26/18 09:12 Dose: 100 mls/hr Azithromycin 500 mg/ Sodium (Chloride) 250 mls @ 250 mls/hr IVPB DAILY [facility]; Protocol Last Admin: 05/26/18 09:13 Dose: 250 mls/hr Lactated Ringer's (Lactated Ringer's) 1,000 mls @ 125 mls/hr IV .Q8H [facility] Last Admin: 05/26/18 11:13 Dose: 125 mls/hr Morphine Sulfate (Morphine) 2 mg IVP Q4 PRN PRN Reason: Pain, severe (8-10) Last Admin: 05/26/18 01:57 Dose: 2 mg Results - Vital Signs Recent Vital Signs: Last Vital Signs Temp 100.1 F H 05/26/18 07:50 Pulse 152 H 05/26/18 11:06 Resp 18 05/26/18 07:50 BP 102/70 05/26/18 11:06 Pulse Ox 98 05/26/18 07:50 - Labs Result Diagrams: 05/26/18 11:00 05/24/18 21:01 Labs: Laboratory Results - last 24 hr 05/25/18 05/25/18 05/25/18 09:50 12:05 15:30 WBC RBC Hgb Hct MCV MCH MCHC RDW Plt Count MPV Neut % (Auto) Lymph % (Auto) [place] % (Auto) Eos % (Auto) Baso % (Auto) Neut # (Auto) Lymph # (Auto) [place] # (Auto) Eos # (Auto) Baso # (Auto) POC Glucose (mg/dL) 141 H Troponin I < 0.0120 Thyroxine (T4) 7.07 Total T3 0.762 L TSH 3rd Generation 0.63 Influenza Typ A,B (EIA) 05/25/18 05/25/18 05/26/18 20:30 21:11 11:00 WBC 9.4 RBC 3.21 L Hgb 9.8 L Hct 29.2 L MCV 90.9 MCH 30.7 MCHC 33.7 RDW 12.5 Plt Count 259 MPV 8.4 Neut % (Auto) 83.3 H Lymph % (Auto) 10.1 L [place] % (Auto) 6.3 Eos % (Auto) 0.1 Baso % (Auto) 0.2 Neut # (Auto) 7.9 H Lymph # (Auto) 1.0 [place] # (Auto) 0.6 Eos # (Auto) 0.0 Baso # (Auto) 0.0 POC Glucose (mg/dL) Troponin I < 0.0120 Thyroxine (T4) Total T3 TSH 3rd Generation Influenza Typ A,B (EIA) Negative for flu a/b Assessment & Plan - Assessment and Plan (Free Text) Plan: 37yo F Hx of Lupus admitted with chest pain, being treated for pneumonia. Surgery consulted for evaluation of cholecystitis. Pt reports epigastric/RUQ and back pain worsening over 3 day period. Pain not associated with food intact, denies any nausea, vomiting, fever, or chills. Denies any previous similar symptoms. PMHx: Lupus PSHx: denies gen: awake, alert, mild distress HEENT: NC/AT, EOMI, PERRLA, no scleral icterus no acute respiratory distress abd: soft, ND, tenderness to RUQ/Epigastric area, ?guarding, no rebound, no peritoneal signs 37yo F with abdominal pain -U/S review - no evidence of cholelithiasis, unlikely acalculous cholecystitis -Stat labs - CBC, CMP, Lipase, Amylase -CT A/p - r/o other intraabdominal pathology -HIDA - r/o acute cholecystitis -NPO -IV hydration -pain control -will continue to follow patient
[2018-05-26] MEDS ORDERED: Metoprolol 1 mg/ml Inj IVP ONE (10:35)
[2018-05-26] MEDS ORDERED: Iohexol 240 (50 ml) PO ONE (10:44)
--- NOTE | 2018-05-26 11:09 | CP.PCM.CON ---
History of Present Illness - History of Present Illness History of Present Illness: 37yF with hx of possible acalculous cholecystitis presents with chest and abdominal pain. Pain is Vas 6-8/10 which is better with pain medication and rest and worse with leaning forward and movement. She denies inciting event and states that pain stated several days ago. She denies urinary incontinence or extremity weakness. Surgery in evaluating for management of possible cholecystitis, and performing more radiology studies. Pt currently is on morphine for pain control. Past Patient History - Infectious Disease Hx of Infectious Diseases: None - Past Social History Smoking Status: Never Smoked - CARDIAC Hx Cardiac Disorders: No - PULMONARY Hx Respiratory Disorders: No - NEUROLOGICAL Hx Neurological Disorder: No - HEENT Hx HEENT Problems: No - RENAL Hx Chronic Kidney Disease: No - ENDOCRINE/METABOLIC Hx Endocrine Disorders: Yes Hx Systemic Lupus Erythematosus: Yes - HEMATOLOGICAL/ONCOLOGICAL Hx Blood Disorders: No - INTEGUMENTARY Hx Dermatological Problems: No - MUSCULOSKELETAL/RHEUMATOLOGICAL Hx Arthritis: Yes Hx Falls: No - GASTROINTESTINAL Hx Gastrointestinal Disorders: No - GENITOURINARY/GYNECOLOGICAL Hx Genitourinary Disorders: No - PSYCHIATRIC Hx Psychophysiologic Disorder: No Hx Substance Use: No - SURGICAL HISTORY Hx Surgeries: Yes Other/Comment: ovarian cyst removal - ANESTHESIA Hx Anesthesia: Yes Hx Anesthesia Reactions: No Meds Allergies/Adverse Reactions: Allergies Allergy/AdvReac Type Severity Reaction Status Date / Time No Known Allergies Allergy Verified 05/23/18 07:27 - Medications Medications: Current Medications Acetaminophen (Tylenol 325mg Tab) 650 mg PO Q6 PRN PRN Reason: Pain, Mild (1-3) Cyclobenzaprine HCl (Flexeril) 10 mg PO HS PRN PRN Reason: Muscle spasm Last Admin: 05/26/18 00:04 Dose: 10 mg Ceftriaxone Sodium 1 gm/ (Sodium Chloride) 100 mls @ 100 mls/hr IVPB DAILY [facility]; Protocol Last Admin: 05/26/18 09:12 Dose: 100 mls/hr Azithromycin 500 mg/ Sodium (Chloride) 250 mls @ 250 mls/hr IVPB DAILY [facility]; Protocol Last Admin: 05/26/18 09:13 Dose: 250 mls/hr Lactated Ringer's (Lactated Ringer's) 1,000 mls @ 125 mls/hr IV .Q8H [facility] Morphine Sulfate (Morphine) 2 mg IVP Q4 PRN PRN Reason: Pain, severe (8-10) Last Admin: 05/26/18 01:57 Dose: 2 mg Physical Exam - Constitutional Additional comments: mild distress - GI/Abdominal Exam Additional comments: +BS. mild to mod TTP RUQ, equivocal ren sign - Extremities Exam Additional comments: MAEW, sensation grossly intact, 5/5 handgrip b/l, DP flex 5/5 b/l. - Back Exam Additional comments: limited ROM, nontender to palpation, negative SLR Results - Vital Signs Recent Vital Signs: Last Vital Signs Temp 100.1 F H 05/26/18 07:50 Pulse 133 H 05/26/18 07:50 Resp 18 05/26/18 07:50 BP 102/70 05/26/18 07:50 Pulse Ox 98 05/26/18 07:50 - Labs Result Diagrams: 05/24/18 21:01 05/24/18 21:01 Labs: Laboratory Results - last 24 hr 05/25/18 05/25/18 05/25/18 09:50 09:53 12:05 pCO2 36 pO2 84 HCO3 26.4 ABG pH 7.46 H ABG Total CO2 26.7 ABG O2 Saturation 98.2 H ABG Base Excess 1.9 Lisandro Test Yes ABG Potassium 3.7 A-a O2 Difference 21.0 Sodium 138.0 Chloride 108.0 H Glucose 114 H Lactate 0.7 FiO2 21.0 POC Glucose (mg/dL) Troponin I < 0.0120 Thyroxine (T4) 7.07 Total T3 0.762 L TSH 3rd Generation 0.63 Arterial Blood Potassium 3.7 Influenza Typ A,B (EIA) 05/25/18 05/25/18 05/25/18 15:30 20:30 21:11 pCO2 pO2 HCO3 ABG pH ABG Total CO2 ABG O2 Saturation ABG Base Excess Lisandro Test ABG Potassium A-a O2 Difference Sodium Chloride Glucose Lactate FiO2 POC Glucose (mg/dL) 141 H Troponin I < 0.0120 Thyroxine (T4) Total T3 TSH 3rd Generation Arterial Blood Potassium Influenza Typ A,B (EIA) Negative for flu a/b Assessment & Plan - Assessment and Plan (Free Text) Assessment: 37yF with chest and abdominal pain starting several days ago, pain improved with morphine. Plan: 1. Pt may have dilaudid 1mg iv q3h prn severe pain. 2. PT 3. Will follow surgery recs, and psychiatry recs 4. Care as per primary team
[2018-05-26] MEDS: Lactated Ringer's 1,000 ML IV SCH ×2 (11:13→20:18)
[2018-05-26 11:15] LABS: BASO % 0.2 % (0.0-2.0); EOS % 0.1 % (0.0-4.0); HEMOGLOBIN 9.8 g/dL (12.0-16.0); LYMPH % 10.1 % (20.0-40.0); MEAN CELL VOLUME 90.9 fl (81.0-99.0); MEAN CORPUSCULAR HEMOGLOBIN 30.7 pg (27.0-31.0); MEAN CORPUSCULAR HGB CONC 33.7 g/dL (33.0-37.0); MEAN PLATELET VOLUME 8.4 fl (7.2-11.7); MONO # 0.6 K/uL (0.0-0.8); MONO % 6.3 % (0.0-10.0); NEUT # 7.9 K/uL (1.8-7.0); NEUT % 83.3 % (50.0-75.0); RBC 3.21 Mil/uL (3.80-5.20); RED CELL DISTRIBUTION WIDTH 12.5 % (11.5-14.5); WHITE BLOOD COUNT 9.4 K/uL (4.8-10.8)
--- NOTE | 2018-05-26 11:29 | RAD ---
Date of service: 05/26/2018 HISTORY: evaluate for free air COMPARISON: Chest radiograph 05/23/2018. TECHNIQUE: 1 view obtained. FINDINGS: LUNGS: Bilateral hemidiaphragms are silhouetted suggesting likely atelectasis or infiltrates. The former is favored. Minimal bilateral pleural effusions are not excluded and are symmetric if present. No pneumothorax bilaterally. PLEURA: As above. CARDIOVASCULAR: No aortic atherosclerotic calcification present. Normal cardiac size. No pulmonary vascular congestion. OSSEOUS STRUCTURES: No significant abnormalities. VISUALIZED UPPER ABDOMEN: Normal. OTHER FINDINGS: None. IMPRESSION: Interval trace bilateral pleural effusions and basilar atelectasis are favored over infiltrates. Clinically correlate further. Exam otherwise unremarkable.
[2018-05-26 11:33] LABS: ALB/GLOB RATIO 0.8 (1.0-2.1); ALBUMIN 3.3 g/dL (3.5-5.0); ALT/SGPT 17 U/L (9-52); AMYLASE 44 U/L (30-110); AST/SGOT 26 U/L (14-36); BLOOD UREA NITROGEN 15 mg/dl (7-17); CALCIUM 8.9 mg/dL (8.4-10.2); GFR NON-AFRICAN AMERICAN > 60; LIPASE 11 U/L (23-300)
[2018-05-26] MEDS ORDERED: Iohexol 300 100 ML IJ ONE (15:19)
--- NOTE | 2018-05-26 15:31 | CP.PCM.CON ---
History of Present Illness - History of Present Illness History of Present Illness: consult requested for depression pt is 37 F with PMH that includes SLE presents to [facility] for complaint of abdominal pain. pt currently being treated for acute cholecystitis , noted by staff to be depressed pt on evaluation. cooperative with good eye contact, speech is soft, reported feeling down at times because of her medical condition and havin episodes of difficult breathing, thought form coherent, denied any current changes in sleep or appetite denied perceptual disturbances, non elicited denied suicidal or homicidal ideation, alert awake ox3 Past Patient History - Infectious Disease Hx of Infectious Diseases: None - Past Social History Smoking Status: Never Smoked - CARDIAC Hx Cardiac Disorders: No - PULMONARY Hx Respiratory Disorders: No - NEUROLOGICAL Hx Neurological Disorder: No - HEENT Hx HEENT Problems: No - RENAL Hx Chronic Kidney Disease: No - ENDOCRINE/METABOLIC Hx Endocrine Disorders: Yes Hx Systemic Lupus Erythematosus: Yes - HEMATOLOGICAL/ONCOLOGICAL Hx Blood Disorders: No - INTEGUMENTARY Hx Dermatological Problems: No - MUSCULOSKELETAL/RHEUMATOLOGICAL Hx Arthritis: Yes Hx Falls: No - GASTROINTESTINAL Hx Gastrointestinal Disorders: No - GENITOURINARY/GYNECOLOGICAL Hx Genitourinary Disorders: No - PSYCHIATRIC Hx Psychophysiologic Disorder: No Hx Substance Use: No - SURGICAL HISTORY Hx Surgeries: Yes Other/Comment: ovarian cyst removal - ANESTHESIA Hx Anesthesia: Yes Hx Anesthesia Reactions: No Meds Allergies/Adverse Reactions: Allergies Allergy/AdvReac Type Severity Reaction Status Date / Time No Known Allergies Allergy Verified 05/23/18 07:27 - Medications Medications: Current Medications Acetaminophen (Tylenol 325mg Tab) 650 mg PO Q6 PRN PRN Reason: Pain, Mild (1-3) Cyclobenzaprine HCl (Flexeril) 10 mg PO HS PRN PRN Reason: Muscle spasm Last Admin: 05/26/18 00:04 Dose: 10 mg Ceftriaxone Sodium 1 gm/ (Sodium Chloride) 100 mls @ 100 mls/hr IVPB DAILY [facility]; Protocol Last Admin: 05/26/18 09:12 Dose: 100 mls/hr Azithromycin 500 mg/ Sodium (Chloride) 250 mls @ 250 mls/hr IVPB DAILY [facility]; Protocol Last Admin: 05/26/18 09:13 Dose: 250 mls/hr Lactated Ringer's (Lactated Ringer's) 1,000 mls @ 125 mls/hr IV .Q8H [place] Last Admin: 05/26/18 11:13 Dose: 125 mls/hr Morphine Sulfate (Morphine) 2 mg IVP Q4 PRN PRN Reason: Pain, severe (8-10) Last Admin: 05/26/18 12:42 Dose: 2 mg Results - Vital Signs Recent Vital Signs: Last Vital Signs Temp 99.2 F 05/26/18 12:05 Pulse 142 H 05/26/18 12:05 Resp 18 05/26/18 12:05 BP 101/66 05/26/18 12:05 Pulse Ox 90 L 05/26/18 12:05 - Labs Result Diagrams: 05/26/18 11:00 05/26/18 11:00 Labs: Laboratory Results - last 24 hr 05/25/18 05/25/18 05/25/18 15:30 20:30 21:11 WBC RBC Hgb Hct MCV MCH MCHC RDW Plt Count MPV Neut % (Auto) Lymph % (Auto) [place] % (Auto) Eos % (Auto) Baso % (Auto) Neut # (Auto) Lymph # (Auto) [place] # (Auto) Eos # (Auto) Baso # (Auto) Sodium Potassium Chloride Carbon Dioxide Anion Gap BUN Creatinine Est GFR ( Amer) Est GFR (Non-Af Amer) POC Glucose (mg/dL) 141 H Random Glucose Lactic Acid Calcium Phosphorus Magnesium Total Bilirubin AST ALT Alkaline Phosphatase Troponin I < 0.0120 Total Protein Albumin Globulin Albumin/Globulin Ratio Amylase Lipase Influenza Typ A,B (EIA) Negative for flu a/b 05/26/18 05/26/18 05/26/18 11:00 11:00 11:00 WBC 9.4 RBC 3.21 L Hgb 9.8 L Hct 29.2 L MCV 90.9 MCH 30.7 MCHC 33.7 RDW 12.5 Plt Count 259 MPV 8.4 Neut % (Auto) 83.3 H Lymph % (Auto) 10.1 L [place] % (Auto) 6.3 Eos % (Auto) 0.1 Baso % (Auto) 0.2 Neut # (Auto) 7.9 H Lymph # (Auto) 1.0 [place] # (Auto) 0.6 Eos # (Auto) 0.0 Baso # (Auto) 0.0 Sodium 138 Potassium 3.9 Chloride 103 Carbon Dioxide 25 Anion Gap 14 BUN 15 Creatinine 0.6 L Est GFR ( Amer) > 60 Est GFR (Non-Af Amer) > 60 POC Glucose (mg/dL) Random Glucose 108 H Lactic Acid 1.3 Calcium 8.9 Phosphorus 2.7 Magnesium 1.8 Total Bilirubin 0.5 AST 26 ALT 17 Alkaline Phosphatase 105 Troponin I Total Protein 7.7 Albumin 3.3 L Globulin 4.3 H Albumin/Globulin Ratio 0.8 L Amylase 44 Lipase 11 L Influenza Typ A,B (EIA) Assessment & Plan - Assessment and Plan (Free Text) Assessment: mood disorder due to medical condition with depressive features Plan: pt is being placed on antidepressant by PMD recommend to be continued pt at current mental status psychiatriclly cleared for discharge upon medical clearance
--- NOTE | 2018-05-26 17:22 | CT ---
Date of service: 05/26/2018 PROCEDURE: CT Abdomen and Pelvis with contrast HISTORY: Unspecified abdominal pain. Relevant medical history: Lupus. Negative test (concurrent with this examination). COMPARISON: May 26, 2018. Abdominal ultrasound 05/24/2018 CT thorax including lower lung gray. TECHNIQUE: Intravenous contrast dose: 90 cc Omnipaque 300. Radiation dose: Total exam DLP = 362.23 mGy-cm. This CT exam was performed using one or more of the following dose reduction techniques: Automated exposure control, adjustment of the mA and/or kV according to patient size, and/or use of iterative reconstruction technique. FINDINGS: LOWER THORAX: Increasing bilateral pleural effusions and compressive atelectasis visible lower lung gray. Small pericardial effusion detected. A finding confirmed on recent echocardiogram performed May 25, 2018. LIVER: Unremarkable. No gross lesion or ductal dilatation. GALLBLADDER AND BILE DUCTS: Contrast layers in the gallbladder related to vicarious excretion related to recent CT angiogram. Trace pericholecystic fluid identified. Similar findings seen on the recent ultrasound. PANCREAS: Unremarkable. No gross lesion or ductal dilatation. SPLEEN: Unremarkable. ADRENALS: Unremarkable. No mass. KIDNEYS AND URETERS: Unremarkable. No hydronephrosis. No solid mass. VASCULATURE: Unremarkable. No aortic aneurysm. No atherosclerotic calcification or mural plaque present. BOWEL: Constipation without fecal impaction or obstruction. APPENDIX: A normal appendix is visualized in it's entirety. PERITONEUM: Unremarkable. No free fluid. No free air. LYMPH NODES: Unremarkable. No enlarged lymph nodes. BLADDER: Unremarkable. REPRODUCTIVE: Bilateral adnexal cysts/follicles noted. Intrauterine contraceptive device (IUD) identified BONES: No acute fracture. OTHER FINDINGS: None. IMPRESSION: Trace pericholecystic fluid identified. Intrauterine contraceptive device (IUD) identified Small bilateral adnexal cysts/follicles. Additional benign and/or incidental findings described above.
--- NOTE | 2018-05-26 18:30 | CP.PCM.PN ---
Subjective - Date & Time of Evaluation Date of Evaluation: 05/26/18 Time of Evaluation: 10:00 - Subjective Subjective: patient seen and examined at bedside. Interim events noted complaints of abdominal pain denies cp/sob/fever/chills. available diagnostic data reviewed Review of Systems All systems: reviewed and no additional remarkable complaints except mentioned above Objective Vital Signs Stable - Constitutional Appears: Non-toxic, No Acute Distress Head Exam: NORMAL INSPECTION Eye Exam: Normal appearance Respiratory Exam: NORMAL BREATHING PATTERN Cardiovascular Exam: +S1, +S2 GI & Abdominal Exam: Soft with tenderness of RUQ Neurological Exam: Alert, Awake Psychiatric exam: Normal Affect, Normal Mood Skin Exam: Normal Color, Warm Assessment and Plan monitor vitals monitor labs Cont meds Cont tx consultants appreciated input abdominal us noted, surgery consulted rest of plan as ordered Objective - Vital Signs/Intake and Output Vital Signs (last 24 hours): Temp Pulse Resp BP Pulse Ox 99.2 F 160 H 18 101/66 90 L 05/26/18 12:05 05/26/18 17:58 05/26/18 12:05 05/26/18 17:58 05/26/18 12:05 Intake and Output: 05/26/18 05/26/18 06:59 18:59 Intake Total 1999 Balance 1999 - Medications Medications: Current Medications Acetaminophen (Tylenol 325mg Tab) 650 mg PO Q6 PRN PRN Reason: Pain, Mild (1-3) Cyclobenzaprine HCl (Flexeril) 10 mg PO HS PRN PRN Reason: Muscle spasm Last Admin: 05/26/18 00:04 Dose: 10 mg Ceftriaxone Sodium 1 gm/ (Sodium Chloride) 100 mls @ 100 mls/hr IVPB DAILY [facility]; Protocol Last Admin: 05/26/18 09:12 Dose: 100 mls/hr Azithromycin 500 mg/ Sodium (Chloride) 250 mls @ 250 mls/hr IVPB DAILY [facility]; Protocol Last Admin: 05/26/18 09:13 Dose: 250 mls/hr Lactated Ringer's (Lactated Ringer's) 1,000 mls @ 125 mls/hr IV .Q8H [facility] Last Admin: 05/26/18 11:13 Dose: 125 mls/hr Metoprolol Tartrate (Lopressor) 25 mg PO BID [facility] Last Admin: 05/26/18 17:58 Dose: 25 mg Morphine Sulfate (Morphine) 2 mg IVP Q4 PRN PRN Reason: Pain, severe (8-10) Last Admin: 05/26/18 12:42 Dose: 2 mg - Labs Labs: 05/26/18 11:00 05/26/18 11:00 Assessment and Plan (1) RUQ pain Status: Acute (2) Tachycardia Status: Acute
--- NOTE | 2018-05-26 18:58 | CP.PCM.PN ---
Subjective - Date & Time of Evaluation Date of Evaluation: 05/26/18 Time of Evaluation: 18:56 - Subjective Subjective: Donovan Olmos, PGY-1, Cardiology Progress Note for Dr. Fu Patient seen and evaluated at bedside. Patient had rapid response called for pleuritic chest pain and tachycardia yesterday. After administration of morphine and xanax, patient's symptoms improved. Today, patient reports improved chest pain. Patient denies abdominal pain today. Patient reports shortness of breath, but denies nausea. Objective - Vital Signs/Intake and Output Vital Signs (last 24 hours): Temp Pulse Resp BP Pulse Ox 99.2 F 160 H 18 101/66 90 L 05/26/18 12:05 05/26/18 17:58 05/26/18 12:05 05/26/18 17:58 05/26/18 12:05 Intake and Output: 05/26/18 05/26/18 06:59 18:59 Intake Total 1999 Balance 1999 - Medications Medications: Current Medications Acetaminophen (Tylenol 325mg Tab) 650 mg PO Q6 PRN PRN Reason: Pain, Mild (1-3) Cyclobenzaprine HCl (Flexeril) 10 mg PO HS PRN PRN Reason: Muscle spasm Last Admin: 05/26/18 00:04 Dose: 10 mg Ceftriaxone Sodium 1 gm/ (Sodium Chloride) 100 mls @ 100 mls/hr IVPB DAILY [facility]; Protocol Last Admin: 05/26/18 09:12 Dose: 100 mls/hr Azithromycin 500 mg/ Sodium (Chloride) 250 mls @ 250 mls/hr IVPB DAILY [facility]; Protocol Last Admin: 05/26/18 09:13 Dose: 250 mls/hr Lactated Ringer's (Lactated Ringer's) 1,000 mls @ 125 mls/hr IV .Q8H [facility] Last Admin: 05/26/18 11:13 Dose: 125 mls/hr Metoprolol Tartrate (Lopressor) 25 mg PO BID [place] Last Admin: 05/26/18 17:58 Dose: 25 mg Morphine Sulfate (Morphine) 2 mg IVP Q4 PRN PRN Reason: Pain, severe (8-10) Last Admin: 05/26/18 12:42 Dose: 2 mg - Labs Labs: 05/26/18 11:00 05/26/18 11:00 - Constitutional Appears: In Acute Distress, Agitated - Head Exam Head Exam: ATRAUMATIC, NORMAL INSPECTION, NORMOCEPHALIC - Eye Exam Eye Exam: EOMI, PERRL - ENT Exam ENT Exam: Mucous Membranes Moist - Respiratory Exam Respiratory Exam: Clear to Auscultation Bilateral, increased breathing rate - Cardiovascular Exam Cardiovascular Exam: Tachycardia, REGULAR RHYTHM, +S1, +S2 - GI/Abdominal Exam GI & Abdominal Exam: Normal Bowel Sounds, Soft. absent: Tenderness - Extremities Exam Extremities exam: Positive for: full ROM, normal inspection. Negative for: pedal edema - Neurological Exam Neurological exam: Alert, CN II-XII Intact, Normal Gait, Oriented x3 - Skin Skin Exam: Dry, Intact, Normal Color Assessment and Plan (1) Pericarditis Assessment & Plan: EKG: sinus tachycardia with HR: 120 Tropx3: negative Echocardiogram shows small circumferential pericardial effusion. Will start NSAIDs and order ESR and CRP for likely pericarditis. Status: Acute (2) Tachycardia Assessment & Plan: EKG: sinus tachycardia with HR: 120 Tropx3: negative Echocardiogram shows small circumferential pericardial effusion. Will start NSAIDs and order ESR and CRP for likely pericarditis. Status: Acute (3) Lupus (systemic lupus erythematosus) Assessment & Plan: Continue management as per primary team Status: Acute
--- NOTE | 2018-05-27 01:21 | CP.PCM.HP ---
History of Present Illness - History of Present Illness History of Present Illness: CC: Chest pain, body aches, and back pain. HPI: 37 y/o Female pt presented to the ED with c/o chest pain, body aches, and back pain. Of note, the pt was seen in the ED and discharged with NSAIDs one day prior to this admission. CT scan revealed right and left lower lobe PNA. The pt is currently being treated with Azithromycin and Rocephin. PMH: Lupus, Arthritis. PSH: None. Allergies: NKDA. Subjective Review of Systems: reviewed and no additional remarkable complaints except generalized aches and pains. Objective Appears: Uncomfortable, No Acute Distress. Head Exam: NORMAL INSPECTION, normocephalic. Eye Exam: Normal appearance, PERRLA, EOMI. Respiratory Exam: NORMAL BREATHING PATTERN, breath sounds diminished at bases. Cardiovascular Exam: +S1, +S2. Rhythm is rapid, tachycardia noted. GI & Abdominal Exam: Soft, non-tender, non-distended. Neurological Exam: Alert, Awake, Oriented x3. Psychiatric exam: Normal Affect, Normal Mood. Skin Exam: Pallor, Warm, Dry. Assessment/Impression/Plan: 1.) Pneumonia -CT scan revealed posterior right and left lower lobe pneumonia. -Currently on Rocephin and Azithromycin. -Assess for further pain control. -Tachycardia noted on monitor, possibly secondary to pain. R/O other causes. -CTA was negative for P.E. -Trace pericardial effusion on echo, however no evidence of cardiac tamponade. Cardiology consult added. -continue current tx. Present on Admission - Present on Admission Any Indicators Present on Admission: No Past Patient History - Infectious Disease Hx of Infectious Diseases: None - Past Social History Smoking Status: Never Smoked - CARDIAC Hx Cardiac Disorders: No - PULMONARY Hx Respiratory Disorders: No - NEUROLOGICAL Hx Neurological Disorder: No - HEENT Hx HEENT Problems: No - RENAL Hx Chronic Kidney Disease: No - ENDOCRINE/METABOLIC Hx Endocrine Disorders: Yes Hx Systemic Lupus Erythematosus: Yes - HEMATOLOGICAL/ONCOLOGICAL Hx Blood Disorders: No - INTEGUMENTARY Hx Dermatological Problems: No - MUSCULOSKELETAL/RHEUMATOLOGICAL Hx Arthritis: Yes Hx Falls: No - GASTROINTESTINAL Hx Gastrointestinal Disorders: No - GENITOURINARY/GYNECOLOGICAL Hx Genitourinary Disorders: No - PSYCHIATRIC Hx Psychophysiologic Disorder: No Hx Substance Use: No - SURGICAL HISTORY Hx Surgeries: Yes Other/Comment: ovarian cyst removal - ANESTHESIA Hx Anesthesia: Yes Hx Anesthesia Reactions: No Meds Allergies/Adverse Reactions: Allergies Allergy/AdvReac Type Severity Reaction Status Date / Time No Known Allergies Allergy Verified 05/23/18 07:27 Results - Vital Signs Recent Vital Signs: Last Vital Signs Temp 99.1 F 05/27/18 00:21 Pulse 141 H 05/27/18 00:21 Resp 20 05/27/18 00:21 BP 114/75 05/27/18 00:21 Pulse Ox 94 L 05/27/18 00:21 - Labs Result Diagrams: 05/26/18 11:00 05/26/18 11:00 Labs: Laboratory Results - last 24 hr 05/26/18 05/26/18 05/26/18 11:00 11:00 11:00 WBC 9.4 RBC 3.21 L Hgb 9.8 L Hct 29.2 L MCV 90.9 MCH 30.7 MCHC 33.7 RDW 12.5 Plt Count 259 MPV 8.4 Neut % (Auto) 83.3 H Lymph % (Auto) 10.1 L [place] % (Auto) 6.3 Eos % (Auto) 0.1 Baso % (Auto) 0.2 Neut # (Auto) 7.9 H Lymph # (Auto) 1.0 [place] # (Auto) 0.6 Eos # (Auto) 0.0 Baso # (Auto) 0.0 Sodium 138 Potassium 3.9 Chloride 103 Carbon Dioxide 25 Anion Gap 14 BUN 15 Creatinine 0.6 L Est GFR ( Amer) > 60 Est GFR (Non-Af Amer) > 60 Random Glucose 108 H Lactic Acid 1.3 Calcium 8.9 Phosphorus 2.7 Magnesium 1.8 Total Bilirubin 0.5 AST 26 ALT 17 Alkaline Phosphatase 105 Total Protein 7.7 Albumin 3.3 L Globulin 4.3 H Albumin/Globulin Ratio 0.8 L Amylase 44 Lipase 11 L Assessment & Plan (1) Pneumonia Status: Acute (2) Tachycardia Status: Acute
[2018-05-27] MEDS: Lactated Ringer's 1,000 ML IV SCH ×2 (03:05→17:17)
[2018-05-27 05:53] LABS: HEMOGLOBIN 9.8 g/dL (12.0-16.0); MEAN CELL VOLUME 92.7 fl (81.0-99.0); MEAN CORPUSCULAR HEMOGLOBIN 31.3 pg (27.0-31.0); MEAN CORPUSCULAR HGB CONC 33.7 g/dL (33.0-37.0); RBC 3.14 Mil/uL (3.80-5.20); RED CELL DISTRIBUTION WIDTH 12.8 % (11.5-14.5); WHITE BLOOD COUNT 9.5 K/uL (4.8-10.8)
[2018-05-27 06:00] LABS: BLOOD UREA NITROGEN 12 mg/dl (7-17); CALCIUM 8.8 mg/dL (8.4-10.2); GFR NON-AFRICAN AMERICAN > 60
[2018-05-27 09:07] LABS: IRON 14 ug/dL (37-170)
[2018-05-27 09:17] LABS: % IRON SATURATION 6 % (20-55); TOTAL IRON BINDING CAPACITY 225 ug/dL (250-450)
--- NOTE | 2018-05-27 10:38 | CP.PCM.PN ---
Subjective - Date & Time of Evaluation Date of Evaluation: 05/27/18 Time of Evaluation: 10:34 - Subjective Subjective: pt seen and examined at bedside, no overnight events. Pt continues to report RUQ/epigastric pain. Pt afebrile, denies any nausea, vomiting, fever, or chills. Pt also report chest pain worst with inspiration. pt is hungry and would like to eat Gen: awake, alert, NAD HEENT: NC/AT, EOMI, PERRLA, -scleral icterus Resp: no acute respiratory distress abd: soft,ND, +right upper quadrant/epigastric tenderness to palpation, no peritoneal signs a/p 37yo F with abdominal pain, possible pericarditis -CT reviewed - no gross pathology seen -LFTs within normal limits -awaiting HIDA scan - r/o acute cholecystitis Objective - Vital Signs/Intake and Output Vital Signs (last 24 hours): Temp Pulse Resp BP Pulse Ox 98.6 F 127 H 20 106/69 99 05/27/18 08:33 05/27/18 09:53 05/27/18 08:33 05/27/18 09:53 05/27/18 08:33 - Medications Medications: Current Medications Acetaminophen (Tylenol 325mg Tab) 650 mg PO Q6 PRN PRN Reason: Pain, Mild (1-3) Last Admin: 05/27/18 03:04 Dose: 650 mg Ceftriaxone Sodium 1 gm/ (Sodium Chloride) 100 mls @ 100 mls/hr IVPB DAILY [facility]; Protocol Last Admin: 05/27/18 09:56 Dose: 100 mls/hr Azithromycin 500 mg/ Sodium (Chloride) 250 mls @ 250 mls/hr IVPB DAILY [facility]; Protocol Last Admin: 05/26/18 09:13 Dose: 250 mls/hr Lactated Ringer's (Lactated Ringer's) 1,000 mls @ 125 mls/hr IV .Q8H [place] Last Admin: 05/27/18 03:05 Dose: 125 mls/hr Ibuprofen (Motrin Tab) 600 mg PO Q6 [place] Last Admin: 05/27/18 09:54 Dose: 600 mg Metoprolol Tartrate (Lopressor) 25 mg PO BID [place] Last Admin: 05/27/18 09:53 Dose: 25 mg Morphine Sulfate (Morphine) 2 mg IVP Q4 PRN PRN Reason: Pain, severe (8-10) Last Admin: 05/27/18 05:05 Dose: 2 mg Pantoprazole Sodium (Protonix Inj) 40 mg IVP DAILY [facility] Last Admin: 05/27/18 09:55 Dose: 40 mg - Labs Labs: 05/27/18 04:35 05/27/18 04:35
[2018-05-27 11:35] LABS: ABG ALLEN TEST YES; ARTERIAL BLOOD GAS HCO3 26.8 mmol/L (21-28); ARTERIAL BLOOD GAS HEMOGLOBIN 9.1 g/dL (11.7-17.4); ARTERIAL BLOOD GAS O2 CAPACITY 12.8 mL/dL (16-24); ARTERIAL BLOOD GAS O2 CONTENT 12.9 ML/dL (15-23); ARTERIAL BLOOD GAS O2 SAT 100.7 % (95-98); ARTERIAL BLOOD GAS PCO2 43 mm/Hg (35-45); ARTERIAL BLOOD GAS PH 7.41 (7.35-7.45); ARTERIAL BLOOD GAS PO2 142 mm/Hg (80-100); ARTERIAL BLOOD GAS TCO2 28.6 mmol/L (22-28)
--- NOTE | 2018-05-27 11:46 | CP.PCM.PN ---
Subjective - Date & Time of Evaluation Date of Evaluation: 05/27/18 Time of Evaluation: 11:43 - Subjective Subjective: Donovan Olmos, PGY-1, Cardiology Progress Note for Dr. Fu Patient seen and evaluated at bedside. Patient had no acute overnight events. Today, patient reports worsened chest pain with respirations. Patient reports abdominal pain today. Patient reports shortness of breath, but denies nausea. Objective - Vital Signs/Intake and Output Vital Signs (last 24 hours): Temp Pulse Resp BP Pulse Ox 98.6 F 127 H 20 106/69 99 05/27/18 08:33 05/27/18 09:53 05/27/18 08:33 05/27/18 09:53 05/27/18 08:33 - Medications Medications: Current Medications Acetaminophen (Tylenol 325mg Tab) 650 mg PO Q6 PRN PRN Reason: Pain, Mild (1-3) Last Admin: 05/27/18 03:04 Dose: 650 mg Ceftriaxone Sodium 1 gm/ (Sodium Chloride) 100 mls @ 100 mls/hr IVPB DAILY [facility]; Protocol Last Admin: 05/27/18 09:56 Dose: 100 mls/hr Lactated Ringer's (Lactated Ringer's) 1,000 mls @ 125 mls/hr IV .Q8H [place] Last Admin: 05/27/18 03:05 Dose: 125 mls/hr Piperacillin Sod/Tazobactam (Sod 3.375 gm/ Sodium Chloride) 100 mls @ 100 ml s/hr IVPB Q6 [place]; Protocol Ibuprofen (Motrin Tab) 600 mg PO Q6 [place] Last Admin: 05/27/18 09:54 Dose: 600 mg Metoprolol Tartrate (Lopressor) 25 mg PO BID [facility] Last Admin: 05/27/18 09:53 Dose: 25 mg Morphine Sulfate (Morphine) 2 mg IVP Q4 PRN PRN Reason: Pain, severe (8-10) Last Admin: 05/27/18 05:05 Dose: 2 mg Pantoprazole Sodium (Protonix Inj) 40 mg IVP DAILY [facility] Last Admin: 05/27/18 09:55 Dose: 40 mg - Labs Labs: 05/27/18 04:35 05/27/18 04:35 - Constitutional Appears: In Acute Distress, Agitated - Head Exam Head Exam: ATRAUMATIC, NORMAL INSPECTION, NORMOCEPHALIC - Eye Exam Eye Exam: EOMI, PERRL - ENT Exam ENT Exam: Mucous Membranes Moist - Respiratory Exam Respiratory Exam: Clear to Auscultation Bilateral, increased breathing rate - Cardiovascular Exam Cardiovascular Exam: Tachycardia, REGULAR RHYTHM, +S1, +S2 - GI/Abdominal Exam GI & Abdominal Exam: Normal Bowel Sounds, Soft. absent: Tenderness - Extremities Exam Extremities exam: Positive for: full ROM, normal inspection. Negative for: pedal edema - Neurological Exam Neurological exam: Alert, CN II-XII Intact, Normal Gait, Oriented x3 - Skin Skin Exam: Dry, Intact, Normal Color Assessment and Plan (1) Pericarditis Assessment & Plan: EKG: sinus tachycardia with HR: 120 Tropx3: negative Echocardiogram shows small circumferential pericardial effusion. BCx: negative for 48 hours CXR from 05/26/18: trace bilateral pleural effusions and basilar atelectasis Continue NSAIDs and follow up ESR and CRP for likely pericarditis. Status: Acute Status: Acute (2) RUQ pain Assessment & Plan: Abdominal U/S: mural thickening of gallbladder suspicious for potential acalculous cholecystitis. Normal CBD caliber. Abdominal CT on 05/26 only shows trace pericholecystic fluid. Follow up HIDA scan. Sufficient pain control needed. Currently on morphine and ibuprofen Status: Acute (3) Tachycardia Assessment & Plan: EKG: sinus tachycardia with HR: 120 Tropx3: negative Echocardiogram shows small circumferential pericardial effusion. Likely 2/2 to pain. Pain control with morphine and ibuprofen Will increase metoprolol to 50 mg Q12 Status: Acute (4) Lupus (systemic lupus erythematosus) Assessment & Plan: Continue management as per primary team Status: Acute
--- NOTE | 2018-05-27 11:48 | CP.PCM.PCO ---
Assessment/Plan - Assessment and Plan (Free Text) Assessment: pt. returned from HIDA scan; Called by RN for pt. in distress pt. reports worsening sob, dyspnea, denies fever or chills, n/v, epigastric pain ( noted pt. had temp 100.2 yesterday afternoon) pt. appears tachypneic, in respiratory distress using abd accessory muscles; reports mild cough, + pleuritic cp, RUQ pain + diaphoretic, Diminished breath sounds R lobe, CTA L lobe BS 80, HR 120, oxygen sat 97 % 4L a/p 37 yr old F with pmhx, Lupus, RA admitted with cp, CAP, Abd pain 2nd Acute cholecystitis now in respiratory distress, stat abg iv abx changed to Zosyn; cont. Zithromax iv stat chest xray cont. ivf f/u HIDA Scan repeat CT chest w/o contrast to r/o pleural effusion consult IR for thoracentesis start HF oxygen blood cx, urine cx, chest xray ID/ Pulmonary consult Consulted above d/w
[2018-05-27] MEDS ORDERED: Azithromycin 500 MG in Sodium Chloride 0.9% 250 ML IVPB ONE (12:15)
--- NOTE | 2018-05-27 13:04 | CP.PCM.CON ---
History of Present Illness - History of Present Illness History of Present Illness: 37 year old female with past medical history of SLE and endometriosis presents to [facility] for right upper quadrant pain radiating to the chest starting 11 days ago. Patient reports that the pain is worse with breathing and has no remitting factors. Work up for cholecystitis / sepsis in progress PSH: surgery for endometriosis (unknown what was done) Allergies: NKDA FMHx: father had stroke at 64, mother has HLD SHx: denies smoking, recreational drug use, occasionally drinks alcohol Review of Systems - Review of Systems All systems: reviewed and no additional remarkable complaints except - Constitutional Constitutional: As Per HPI - EENT Eyes: absent: As Per HPI, Blind Spots, Blurred Vision, Change in Vision, Decreased Night Vision, Diplopia, Discharge, Dry Eye, Exophthalmos, Floaters, Irritation, Itchy Eyes, Loss of Peripheral Vision, Pain, Photophobia, Requires Corrective Lenses, Sees Flashes, Spots in Vision, Tunnel Vision, Other Visual Disturbances, Loss of Vision, Other Ears: absent: As Per HPI, Decreased Hearing, Ear Discharge, Ear Pain, Tinnitus, Abnormal Hearing, Disequilibrium, Dizziness, Other Nose/Mouth/Throat: absent: As Per HPI, Epistaxis, Nasal Congestion, Nasal Discharge, Nasal Obstruction, Nasal Trauma, Nose Pain, Post Nasal Drip, Sinus Pain, Sinus Pressure, Bleeding Gums, Change in Voice, Dental Pain, Dry Mouth, Dysphagia, Halitosis, Hoarsness, Lip Swelling, Mouth Lesions, Mouth Pain, Odynophagia, Sore Throat, Throat Swelling, Tongue Swelling, Facial Pain, Neck Pain, Neck Mass, Other - Cardiovascular Cardiovascular: As Per HPI - Respiratory Respiratory: As Per HPI, Dyspnea. absent: Hemoptysis - Gastrointestinal Gastrointestinal: As Per HPI, Abdominal Pain - Genitourinary Genitourinary: absent: As Per HPI, Change in Urinary Stream, Difficulty Urinating, Dysuria, Flank Pain, Hematuria, Pyuria, Nocturia, Urinary Incontinence, Urinary Frequency, Urinary Hesitance, Urinary Urgency, Voiding Freq/Small Amts, Freq UTI, Hx Renal/Bladder Calculi, Hx /Renal Surgery, Bladder Distension, Other - Reproductive: Female Reproductive:Female: absent: As Per HPI, Amenorrhea, Amenorrhea/ Control, Currently Menstual, Cycle <21 Days, Cycle >35 Days, Cycle Variable, Menses 1-7 Days, Menses >/= 8 Days, Menses Variable, Cycle > 4 Weeks Between, No Menses for 6 Months, Heavy Menses, Light Menses, Normal Menses, Spotting Between Cycles, S/P Hysterectomy, Menopausal, Post Menopausal, Premenarche, Abnormal Vaginal Bleeding, Dysmenorrhea, Dyspareunia, Genital Lesions, Genital Pruritis, Pelvic Pain, Prolapse Symptoms, Sexual Dysfunction, Vaginal Discharge, Vaginal Dryness, Vaginal Odor, Vaginal Pruritis, Other - Menstruation Menstruation: absent: As Per HPI, Amenorrhea, Amenorrhea/ Control, Currently Menstual, Cycle <21 Days, Cycle >35 Days, Cycle Variable, Menses 1-7 Days, Menses >/= 8 Days, Menses Variable, Cycle > 4 Weeks Between, No Menses for 6 Months, Heavy Menses, Light Menses, Normal Menses, Spotting Between Cycles, S/P Hysterectomy, Menopausal, Post Menopausal, Premenarche, Abnormal Vaginal Bleeding, Dysmenorrhea, Other - Musculoskeletal Musculoskeletal: As Per HPI - Integumentary Integumentary: absent: As Per HPI, Acne, Alopecia, Bleeding Lesions, Change in Hair, Change in Nails, Change in Pigmentation, Changing Lesions, Dry Skin, Erythema, Furuncle, Hirsutism, Lesions, New Lesions, Non-Healing Lesions, Photosensitivity, Pruritus, Rash, Skin Pain, Skin Ulcer, Sores, Striae, Swelling, Unusual Bruising, Wounds, Jaundice, Other - Neurological Neurological: absent: As Per HPI, Abnormal Gait, Abnormal Hearing, Abnormal Move ments, Abnormal Speech, Behavioral Changes, Burning Sensations, Confusion, Convulsions, Disequilibrium, Dizziness, Numbness, Focal Weakness, Frequent Falls, Headaches, Lack of Coordination, Loss of Vision, Memory Loss, Paresthesias, Radicular Pain, Restless Legs, Sensory Deficit, Syncope, Tingling, Tremor, Vertigo, Weakness, Other Visual Disturbances, Other - Psychiatric Psychiatric: absent: As Per HPI, Abnormal Sleep Pattern, Anhedonia, Anxiety, Auditory Hallucinations, Behavioral Changes, Change in Appetite, Change in Libido, Confusion, Depression, Difficulty Concentrating, Hallucinations, Homicidal Ideation, Hopelessness, Irritability, Memory Loss, Mood Swings, Panic Attacks, Paranoia, Suicidal Ideation, Visual Hallucinations, Tactile Hallucinations, Other Past Patient History - Infectious Disease Hx of Infectious Diseases: None - Past Social History Smoking Status: Never Smoked - CARDIAC Hx Cardiac Disorders: No - PULMONARY Hx Respiratory Disorders: No - NEUROLOGICAL Hx Neurological Disorder: No - HEENT Hx HEENT Problems: No - RENAL Hx Chronic Kidney Disease: No - ENDOCRINE/METABOLIC Hx Endocrine Disorders: Yes Hx Systemic Lupus Erythematosus: Yes - HEMATOLOGICAL/ONCOLOGICAL Hx Blood Disorders: No - INTEGUMENTARY Hx Dermatological Problems: No - MUSCULOSKELETAL/RHEUMATOLOGICAL Hx Arthritis: Yes Hx Falls: No - GASTROINTESTINAL Hx Gastrointestinal Disorders: No - GENITOURINARY/GYNECOLOGICAL Hx Genitourinary Disorders: No - PSYCHIATRIC Hx Psychophysiologic Disorder: No Hx Substance Use: No - SURGICAL HISTORY Hx Surgeries: Yes Other/Comment: ovarian cyst removal - ANESTHESIA Hx Anesthesia: Yes Hx Anesthesia Reactions: No Meds Allergies/Adverse Reactions: Allergies Allergy/AdvReac Type Severity Reaction Status Date / Time No Known Allergies Allergy Verified 05/23/18 07:27 - Medications Medications: Current Medications Acetaminophen (Tylenol 325mg Tab) 650 mg PO Q6 PRN PRN Reason: Pain, Mild (1-3) Last Admin: 05/27/18 03:04 Dose: 650 mg Lactated Ringer's (Lactated Ringer's) 1,000 mls @ 125 mls/hr IV .Q8H [place] Last Admin: 05/27/18 03:05 Dose: 125 mls/hr Piperacillin Sod/Tazobactam (Sod 3.375 gm/ Sodium Chloride) 100 mls @ 100 mls/hr IVPB Q6 [place]; Protocol Azithromycin 500 mg/ Sodium (Chloride) 250 mls @ 250 mls/hr IVPB DAILY [facility]; Protocol Azithromycin 500 mg/ Sodium (Chloride) 250 mls @ 250 mls/hr IVPB DAILY [facility]; Protocol Stop: 05/27/18 13:14 Ibuprofen (Motrin Tab) 600 mg PO Q6 [place] Last Admin: 05/27/18 09:54 Dose: 600 mg Metoprolol Tartrate (Lopressor) 25 mg PO BID [facility] Last Admin: 05/27/18 09:53 Dose: 25 mg Morphine Sulfate (Morphine) 2 mg IVP Q4 PRN PRN Reason: Pain, severe (8-10) Last Admin: 05/27/18 05:05 Dose: 2 mg Pantoprazole Sodium (Protonix Inj) 40 mg IVP DAILY [facility] Last Admin: 05/27/18 09:55 Dose: 40 mg Physical Exam - Constitutional Appears: Toxic, In Acute Distress - Head Exam Head Exam: ATRAUMATIC, NORMAL INSPECTION, NORMOCEPHALIC - Eye Exam Eye Exam: EOMI, Normal appearance, PERRL Pupil Exam: NORMAL ACCOMODATION, PERRL - ENT Exam ENT Exam: Mucous Membranes Moist, Normal Exam - Neck Exam Neck exam: Positive for: Normal Inspection. Negative for: Lymphadenopathy, Thyromegaly - Respiratory Exam Respiratory Exam: Accessory Muscle Use, Decreased Breath Sounds, Rales. absent: Respiratory Distress, Stridor, NORMAL BREATHING PATTERN - Cardiovascular Exam Cardiovascular Exam: Tachycardia, REGULAR RHYTHM, +S1, +S2, Systolic Murmur - GI/Abdominal Exam GI & Abdominal Exam: Diminished Bowel Sounds, Distended, Guarding, Soft, Tenderness. absent: Rebound, Rigid - Rectal Exam Rectal Exam: Deferred - Exam Exam: NORMAL INSPECTION - Extremities Exam Extremities exam: Positive for: normal inspection - Back Exam Back exam: NORMAL INSPECTION - Neurological Exam Neurological exam: Alert, CN II-XII Intact, Normal Gait, Oriented x3, Reflexes Normal - Psychiatric Exam Psychiatric exam: Normal Affect, Normal Mood - Skin Skin Exam: Dry, Intact, Normal Color, Warm Results - Vital Signs Recent Vital Signs: Last Vital Signs Temp 98.9 F 05/27/18 12:33 Pulse 114 H 05/27/18 12:33 Resp 20 05/27/18 12:33 BP 112/77 05/27/18 12:33 Pulse Ox 100 05/27/18 12:33 - Labs Result Diagrams: 05/27/18 04:35 05/27/18 04:35 Labs: Laboratory Results - last 24 hr 05/27/18 05/27/18 05/27/18 04:35 04:35 08:00 WBC 9.5 RBC 3.14 L Hgb 9.8 L Hct 29.1 L MCV 92.7 MCH 31.3 H MCHC 33.7 RDW 12.8 Plt Count 254 pCO2 pO2 HCO3 ABG pH ABG Total CO2 ABG O2 Saturation ABG O2 Content ABG Base Excess ABG Hemoglobin ABG Carboxyhemoglobin POC ABG HHb (Measured) ABG Methemoglobin ABG O2 Capacity Lisandro Test A-a O2 Difference Hgb O2 Saturation Vent Mode FiO2 Sodium 138 Potassium 4.0 Chloride 102 Carbon Dioxide 29 Anion Gap 11 BUN 12 Creatinine 0.6 L Est GFR ( Amer) > 60 Est GFR (Non-Af Amer) > 60 POC Glucose (mg/dL) Random Glucose 94 Calcium 8.8 Iron 14 L TIBC 225 L % Saturation 6 L Ferritin 170.0 H Vitamin B12 299 05/27/18 05/27/18 11:02 11:27 WBC RBC Hgb Hct MCV MCH MCHC RDW Plt Count pCO2 43 pO2 142 H HCO3 26.8 ABG pH 7.41 ABG Total CO2 28.6 H ABG O2 Saturation 100.7 H ABG O2 Content 12.9 L ABG Base Excess 2.4 ABG Hemoglobin 9.1 L ABG Carboxyhemoglobin 1.6 H POC ABG HHb (Measured) -0.7 L ABG Methemoglobin 0.4 ABG O2 Capacity 12.8 L Lisandro Test Yes A-a O2 Difference 89.0 Hgb O2 Saturation 98.7 H Vent Mode 5lnc FiO2 40.0 Sodium Potassium Chloride Carbon Dioxide Anion Gap BUN Creatinine Est GFR ( Amer) Est GFR (Non-Af Amer) POC Glucose (mg/dL) 86 Random Glucose Calcium Iron TIBC % Saturation Ferritin Vitamin B12 Assessment & Plan (1) Chest pain Status: Acute (2) Lupus (systemic lupus erythematosus) Status: Acute (3) Pneumonia Status: Acute (4) RUQ pain Status: Acute (5) Tachycardia Status: Acute - Assessment and Plan (Free Text) Assessment: SEPSIS IMPENDING RESP FAILURE PNEUMONIA LUPUS R/O CHOLECYSTITIS CONT IV ANTIBIOTICS CONSIDER ICU EVAL STAT SURGICAL CONSULT AWAIT HIDA SCAN
[2018-05-27] MEDS: Azithromycin 500 MG in Sodium Chloride 0.9% 250 ML IVPB SCH (13:20)
--- NOTE | 2018-05-27 13:20 | RAD ---
Date of service: 05/27/2018 HISTORY: sob COMPARISON: Frontal chest radiograph 05/26/2018. TECHNIQUE: 1 view obtained. FINDINGS: LUNGS: No interval improvement in bilateral pleural effusions is appreciate which remain [id number] severity with underlying airspace disease not excluded. No pneumothorax bilaterally or pulmonary vascular congestion. Cardiac silhouette appears stable.. PLEURA: As above. CARDIOVASCULAR: No aortic atherosclerotic calcification present. As above. OSSEOUS STRUCTURES: No significant abnormalities. VISUALIZED UPPER ABDOMEN: Normal. OTHER FINDINGS: None. IMPRESSION: Mild bilateral pleural effusions persist with underlying airspace disease not excluded. No definite pulmonary vascular congestion or pneumothorax appreciated bilaterally.
[2018-05-27] MEDS ORDERED: Sodium Chloride 3% for Inhalation 4 ML VIAL.NEB IH PRN (14:00)
--- NOTE | 2018-05-27 14:52 | CP.PCM.PN ---
Subjective - Date & Time of Evaluation Date of Evaluation: 05/27/18 Time of Evaluation: 14:52 - Subjective Subjective: pt seen and evaluated appears dyspneic at rest o2 sat-adequate will transfer to icu for close monitoring and adequate oxygenation may need bipap/endotracheal intubation and ventilation if clinical condition worsens refer to interventional radiology for thoracenteses case discussed with airport clerk-dr nolan[he will accept pt in icu] Objective - Vital Signs/Intake and Output Vital Signs (last 24 hours): Temp Pulse Resp BP Pulse Ox 98.9 F 114 H 18 112/77 100 05/27/18 12:33 05/27/18 12:33 05/27/18 14:19 05/27/18 12:33 05/27/18 12:33 - Medications Medications: Current Medications Acetaminophen (Tylenol 325mg Tab) 650 mg PO Q6 PRN PRN Reason: Pain, Mild (1-3) Last Admin: 05/27/18 03:04 Dose: 650 mg Lactated Ringer's (Lactated Ringer's) 1,000 mls @ 125 mls/hr IV .Q8H [place] Last Admin: 05/27/18 03:05 Dose: 125 mls/hr Azithromycin 500 mg/ Sodium (Chloride) 250 mls @ 250 mls/hr IVPB DAILY [facility]; P rotocol Meropenem 500 mg/ Sodium (Chloride) 100 mls @ 100 mls/hr IVPB Q8 [place]; Protocol Vancomycin HCl 1 gm/ Sodium (Chloride) 250 mls @ 166.667 mls/hr IVPB ONCE [facility]; Protocol Stop: 05/27/18 15:51 Ibuprofen (Motrin Tab) 600 mg PO Q6 [place] Last Admin: 05/27/18 09:54 Dose: 600 mg Metoprolol Tartrate (Lopressor) 25 mg PO BID [place] Last Admin: 05/27/18 09:53 Dose: 25 mg Morphine Sulfate (Morphine) 2 mg IVP Q4 PRN PRN Reason: Pain, severe (8-10) Last Admin: 05/27/18 05:05 Dose: 2 mg Pantoprazole Sodium (Protonix Inj) 40 mg IVP DAILY [place] Last Admin: 05/27/18 09:55 Dose: 40 mg - Labs Labs: 05/27/18 04:35 05/27/18 04:35
--- NOTE | 2018-05-27 15:52 | CT ---
Date of service: 05/27/2018 PROCEDURE: CT Chest without contrast HISTORY: pna, hx lupus in resp distress, eval for R effusin COMPARISON: Chest CT with contrast 05/24/2018. TECHNIQUE: Contiguous axial images were obtained through the chest without intravenous contrast enhancement. Sagittal and coronal reconstructions were performed. Radiation dose: Total exam DLP = 167.06 mGy-cm. This CT exam was performed using one or more of the following dose reduction techniques: Automated exposure control, adjustment of the mA and/or kV according to patient size, and/or use of iterative reconstruction technique. FINDINGS: Interval increase in bilateral pleural effusions is identified previously shown as a minimal at the right and now identified [id number] severity bilaterally including the left major fissure. There is also now a ejif-hz-xjwglzao pericardial effusion measuring 12 mm greatest radial diameter. Moderate pulmonary vascular congestion is present as well with cephalization clearly identified symmetrically. Compressive and dependent atelectasis favored over infiltrates at the bilateral bases. The thoracic inlet is stable with normal caliber thoracic aorta once again. Central airways appear stable and clear overall. No suspicious interval changes in the visualized upper abdomen sections. BONES: No fracture. No destructive lesion. OTHER FINDINGS: None. IMPRESSION: Interval worsening right pleural effusion with now bilateral roud-[id number] pleural effusion identified and significant pericardial effusion as discussed above. Clinically correlate further. Compression of and dependent atelectasis favored at the bilateral bases over pneumonia. Underlying pneumonia difficult to completely exclude. Pulmonary vascular congestion is appreciated with cephalization clearly evident.
--- NOTE | 2018-05-27 15:59 | NM ---
Date of service: 05/27/2018 PROCEDURE: Nuclear Medicine Hepatobiliary Scan HISTORY: abdominal pain, evalaute for cholecystitis COMPARISON: 05/26/2018 abdominal ultrasound. 05/26/2018 CT abdomen and pelvis. TECHNIQUE: 5.25 mCi of technetium 99m Mebrofenin was administered intravenously. Planar images of the abdomen were obtained at 5 min intervals to 60 mins. Delayed images were also obtained. FINDINGS: LIVER: Timely and homogenous uptake. COMMON BILE DUCT: identified at 5 mins. GALLBLADDER: identified at 4 hr SMALL BOWEL: Identified at 15 mins. IMPRESSION: Normal Hepatobiliary Scan. The cystic duct is patent.
[2018-05-27] MEDS ORDERED: Piperacillin/Tazobact 3.375 GM in Sodium Chloride 0.9% 100 ML IVPB SCH (16:00)
--- NOTE | 2018-05-27 16:43 | CP.CCUPN ---
CCU Subjective - Physician Review Subjective (Free Text): 37 F admitted 3 days ago for chest pain, RUQ abdominal pain, seen by Gen Surg, Pulm, undergoing eval for acute Mariann and progressive bilateral LL pneumonia with effusions; assoc with resp distress, SOB at rest. PMH significant for lupus arthritis and has been on Plaquenil in the past. She denies any exacerbation of joint pain now. Has been on 6 LPM NC, advanced to HFNC, and now upgraded to ICU for BiPAP support. Repeat CT Chest shows increase in bilat effusions, air bronchogram over LLL, and bilateral mid lung small tree-in-bud like opacifications. She has been on empiric abx coverage with Zosyn and Zithromycin. T max 100.2F yesterday, SBP 110s, HR 110s, SPo2 100% on 6LPM Nasal cannula. Allergies: NKDA Home Meds: none ROS: No other pertinent negs or positive on 10+ system review. Other PMSFH: All other Nursing and physician documentation reviewed to date; no new pertinent info noted relevant to current medical problems. EXAM- HEENT: no icterus, pupils equal, 3 mm and reactive, no nystagmus NECK: no visible JVD, supple, carotids equal upstroke bilat/no bruits CHEST: decreased BS bases, no wheezes audible HEART: regular, distant, S1S2, no murmur audible, no rubs. ABD: soft, no distention, no focal tenderness, BS hypoactive. EXT: trace edema, no mottling, cool, no cyanosis, no calf tenderness or palpable cords, distal pulses intact and symmetrical NEURO: no gross focal motor deficits SKIN: no rashes LABS: WBC= 9.5 HGB= 9.8 PLTs = 254K 7.41/43/142 on 6 LPM NC Na= 138 K= 40 Cl= 102 HCO3= 29 BUN/Cr= 12/0.6 BS= 94 FE% satn = 6 Trops negative x 3 CXR: (my interp)- bilat effusions, LLL airB-gram IMPRESSION / MAJOR PROBLEMS NOW: 1. Acute Resp Hypoxemic Failure 2 bilateral Pneumonia with parapneumonic effusion; r/o atypical bacterial, fungal, viral pneumonitis 2. Chest pain 2 Lupus pleuritis 3. Acute Mariann 4. Chronic Disease Anemia / Fe Deficiency Anemia 5. h/o Lupus Arthritis PLAN: 1. Assisted breathing support with HFNC, BiPAP. Does not appear to need MV yet. 2. [place] NSAIDs for any pleuritic pain. Would consider IV steroids given bilat effusions. Get Procalcitonin to r/o bacterial etiology. If feasible to obtain pleural fluid, get analysis for LE cells. 3. Anticipate HIDA scan today 4. DVT prx, watch for thromboembolic events. 5. Full aggressive measures, no Advance Directives.
--- NOTE | 2018-05-27 16:49 | CP.PCM.PN ---
Subjective - Date & Time of Evaluation Date of Evaluation: 05/27/18 Time of Evaluation: 16:47 - Subjective Subjective: pt s/p HIDA scan which shows patent cystic duct, no signs of cholecystitis. recommend pt started on liquid diet and advance as tolerated. pt needs to be monitor for tachycardia and tachypnea. no surgical intervention at this time, will monitor pt while initiating PO diet Objective - Vital Signs/Intake and Output Vital Signs (last 24 hours): Temp Pulse Resp BP Pulse Ox 98.3 F 122 H 34 H 130/72 100 05/27/18 16:17 05/27/18 16:17 05/27/18 16:17 05/27/18 16:17 05/27/18 16:17 Intake and Output: 05/27/18 05/27/18 06:59 18:59 Intake Total 450 Balance 450 - Medications Medications: Current Medications Acetaminophen (Tylenol 325mg Tab) 650 mg PO Q6 PRN PRN Reason: Pain, Mild (1-3) Last Admin: 05/27/18 03:04 Dose: 650 mg Lactated Ringer's (Lactated Ringer's) 1,000 mls @ 125 mls/hr IV .Q8H [place] Last Admin: 05/27/18 03:05 Dose: 125 mls/hr Azithromycin 500 mg/ Sodium (Chloride) 250 mls @ 250 mls/hr IVPB DAILY [facility]; Protocol Meropenem 500 mg/ Sodium (Chloride) 100 mls @ 100 mls/hr IVPB Q8 [place]; Protocol Ibuprofen (Motrin Tab) 600 mg PO Q6 [place] Last Admin: 05/27/18 09:54 Dose: 600 mg Metoprolol Tartrate (Lopressor) 25 mg PO BID [place] Last Admin: 05/27/18 09:53 Dose: 25 mg Morphine Sulfate (Morphine) 2 mg IVP Q4 PRN PRN Reason: Pain, severe (8-10) Last Admin: 05/27/18 15:45 Dose: 2 mg Pantoprazole Sodium (Protonix Inj) 40 mg IVP DAILY [place] Last Admin: 05/27/18 09:55 Dose: 40 mg - Labs Labs: 05/27/18 04:35 05/27/18 04:35
[2018-05-27] MEDS: Meropenem 500 MG in Sodium Chloride 0.9% 100 ML IVPB SCH (18:39)
[2018-05-27] MEDS: methylPREDNISolone 1 GM in Sodium Chloride 0.9% 250 ML IV SCH (20:25)
--- NOTE | 2018-05-28 00:11 | CON ---
DATE: 05/27/2018 HISTORY OF PRESENT ILLNESS: Ms. Snell is a 37-year-old female who was referred for pulmonary evaluation by Dr. Vasquez. She was admitted several days ago because of abdominal pain and referred for pulmonary evaluation because of shortness of breath and abnormal chest x-ray. She is being worked up for therapy of acute cholecystitis but shortness of breath has apparently worsened over the past 24 hours. She denies cough or sputum production and denies chest pains. PAST MEDICAL HISTORY: Remarkable for systemic lupus erythematosus and endometriosis. FAMILY HISTORY: Nonrevealing. SOCIAL HISTORY: She does not drink or smoke and lives at home with family. REVIEW OF SYSTEMS: Essentially unremarkable. PHYSICAL EXAMINATION: GENERAL: The patient is alert, oriented, appears to be in acute distress because of shortness of breath. VITAL SIGNS: Blood pressure of 112/77 with a pulse of 114, respiratory rate is 20-22 per minute, O2 sat at 100%, temperature 98.9 degrees Fahrenheit. SKIN: Shows fair turgor. HEENT: Pupils are equal and reactive to light and accommodation. Mouth shows fair hygiene. NECK: JVP flat. LUNGS: Bilateral bibasilar dullness with fair aeration in the apices. HEART: Tachycardic. BREASTS: Normal. ABDOMEN: Soft with diffuse tenderness, more on the right upper quadrant and midepigastric area. EXTREMITIES: Show no edema or cyanosis. CENTRAL NERVOUS SYSTEM: The patient is alert and oriented. No gross deficits appreciated. LABORATORY DATA: Remarkable for WBC of 9.5, hemoglobin 9.8, platelet count of 254,000. Sodium 138, potassium 4, BUN 12, creatinine 0.6. Lactate level 1.3, amylase 44, lipase 11. Chest x-ray is remarkable for bilateral small pleural effusions with underlying airspace disease. CAT scan of the chest that was done on admission on 05/24/2018 is remarkable for no pulmonary embolus, trace subsegmental subpleural dependent atelectatic changes, trace posterior pleural thickening, possible trace minimal right pleural effusion. Arterial blood gases done on 05/27/2018, pH 7.41, pCO2 of 43, pO2 of 142, this was on 5 L nasal cannula. IMPRESSION: A 37-year-old female admitted with abdominal pain and what appears to be gallbladder disease with subsequent shortness of breath and pleural effusions, one has to rule out some form of pulmonary infection or pneumonia secondary to intra-abdominal pathology.Exacerbation of lupus. Despite arterial blood gas remaining normal, the patient remains short of breath at rest. PLAN: So, the plan will be refer for interventional radiology to evaluate for possible thoracentesis for both symptomatic and therapeutic effect with continued IV antibiotics as per Infectious Disease. The patient may need to be on BiPAP therapy to help support appropriate and adequate respiration with continued aerosolized bronchodilators. If clinical condition worsens, will need endotracheal intubation and ventilation. We will continue to follow with you. Gurwinder Zarate MD MTD[facility]andler
[2018-05-28] MEDS: Lactated Ringer's 1,000 ML IV SCH ×3 (01:44→18:26)
[2018-05-28] MEDS: Meropenem 500 MG in Sodium Chloride 0.9% 100 ML IVPB SCH ×3 (01:45→16:51)
[2018-05-28 05:19] LABS: BASO % 0.1 % (0.0-2.0); EOS % 0.1 % (0.0-4.0); HEMOGLOBIN 8.8 g/dL (12.0-16.0); LYMPH # 0.4 K/uL (1.0-4.3); LYMPH % 6.3 % (20.0-40.0); MEAN CELL VOLUME 91.7 fl (81.0-99.0); MEAN CORPUSCULAR HEMOGLOBIN 31.2 pg (27.0-31.0); MEAN PLATELET VOLUME 8.2 fl (7.2-11.7); MONO # 0.1 K/uL (0.0-0.8); MONO % 2.5 % (0.0-10.0); NEUT # 5.2 K/uL (1.8-7.0); PLATELET COUNT 245 K/uL (130-400); RBC 2.83 Mil/uL (3.80-5.20); RED CELL DISTRIBUTION WIDTH 12.3 % (11.5-14.5); WHITE BLOOD COUNT 5.7 K/uL (4.8-10.8)
[2018-05-28 05:33] LABS: ALB/GLOB RATIO 0.7 (1.0-2.1); ALT/SGPT 22 U/L (9-52); AST/SGOT 35 U/L (14-36); BLOOD UREA NITROGEN 11 mg/dl (7-17); CALCIUM 8.7 mg/dL (8.4-10.2); GFR NON-AFRICAN AMERICAN > 60
[2018-05-28 05:56] LABS: ABG ALLEN TEST YES; ARTERIAL BLOOD GAS HCO3 26.8 mmol/L (21-28); ARTERIAL BLOOD GAS HEMOGLOBIN 8.9 g/dL (11.7-17.4); ARTERIAL BLOOD GAS O2 CAPACITY 12.5 mL/dL (16-24); ARTERIAL BLOOD GAS O2 CONTENT 12.5 ML/dL (15-23); ARTERIAL BLOOD GAS O2 SAT 100.1 % (95-98); ARTERIAL BLOOD GAS PCO2 38 mm/Hg (35-45); ARTERIAL BLOOD GAS PH 7.45 (7.35-7.45); ARTERIAL BLOOD GAS PO2 108 mm/Hg (80-100); ARTERIAL BLOOD GAS TCO2 27.6 mmol/L (22-28)
--- NOTE | 2018-05-28 08:21 | CP.PCM.PN ---
<Wei Tran - Last Filed: 05/28/18 08:21> Subjective - Date & Time of Evaluation Date of Evaluation: 05/28/18 Time of Evaluation: 07:20 - Subjective Subjective: Patient seen and examined. No events over night. Patient is tolerating liquid diet. Offered no complaints. Objective - Vital Signs/Intake and Output Vital Signs (last 24 hours): Temp Pulse Resp BP Pulse Ox 98.1 F 93 H 18 119/79 100 05/28/18 04:00 05/28/18 06:00 05/28/18 08:14 05/28/18 06:00 05/28/18 06:00 Intake and Output: 05/28/18 05/28/18 06:59 18:59 Intake Total 500 Balance 500 - Medications Medications: Current Medications Acetaminophen (Tylenol 325mg Tab) 650 mg PO Q6 PRN PRN Reason: Pain, Mild (1-3) Last Admin: 05/27/18 03:04 Dose: 650 mg Lactated Ringer's (Lactated Ringer's) 1,000 mls @ 125 mls/hr IV .Q8H [place] Last Admin: 05/28/18 01:44 Dose: 125 mls/hr Azithromycin 500 mg/ Sodium (Chloride) 250 mls @ 250 mls/hr IVPB DAILY [facility]; Protocol Meropenem 500 mg/ Sodium (Chloride) 100 mls @ 100 mls/hr IVPB Q8 [place]; Protocol Last Admin: 05/28/18 08:16 Dose: 100 mls/hr Methylprednisolone 1 gm/ (Sodium Chloride) 250 mls @ 62.5 mls/hr IV DAILY [place] Stop: 05/30/18 17:01 Last Admin: 05/27/18 20:25 Dose: 62.5 mls/hr Ibuprofen (Motrin Tab) 600 mg PO Q6 [place] Last Admin: 05/28/18 05:00 Dose: Not Given Metoprolol Tartrate (Lopressor) 50 mg PO Q12 [place] Morphine Sulfate (Morphine) 2 mg IVP Q4 PRN PRN Reason: Pain, severe (8-10) Last Admin: 05/27/18 22:17 Dose: 2 mg Pantoprazole Sodium (Protonix Inj) 40 mg IVP DAILY [place] Last Admin: 05/28/18 08:16 Dose: 40 mg - Labs Labs: 05/28/18 04:40 05/28/18 04:40 - Constitutional Appears: No Acute Distress - Head Exam Head Exam: NORMOCEPHALIC - Eye Exam Eye Exam: Normal appearance - ENT Exam ENT Exam: Mucous Membranes Moist - Respiratory Exam Respiratory Exam: NORMAL BREATHING PATTERN - Cardiovascular Exam Cardiovascular Exam: +S1, +S2 - GI/Abdominal Exam GI & Abdominal Exam: Soft, Tenderness. absent: Distended, Firm, Guarding, Rigid - Neurological Exam Neurological Exam: Alert, Awake, Oriented x3 - Psychiatric Exam Psychiatric exam: Normal Mood - Skin Skin Exam: Dry, Intact, Warm Assessment and Plan - Assessment and Plan (Free Text) Assessment: 37yo F with abdominal pain, possible pericarditis -CT reviewed - no gross pathology seen -LFTs within normal limits Plan: pt s/p HIDA scan which shows patent cystic duct, no signs of cholecystitis. recommend pt started on liquid diet and advance diet as tolerated. pt needs to be monitor for tachycardia and tachypnea. no surgical intervention at this time, will monitor pt while initiating PO diet D/w Dr. Neel Butt PGY3 <Renny Shaikh - Last Filed: 05/28/18 18:17> Objective - Vital Signs/Intake and Output Vital Signs (last 24 hours): Temp Pulse Resp BP Pulse Ox 98.0 F 85 20 120/72 98 05/28/18 16:00 05/28/18 16:00 05/28/18 16:00 05/28/18 16:00 05/28/18 16:00 Intake and Output: 05/28/18 05/28/18 06:59 18:59 Intake Total 500 350 Balance 500 350 - Medications Medications: Current Medications Acetaminophen (Tylenol 325mg Tab) 650 mg PO Q6 PRN PRN Reason: Pain, Mild (1-3) Last Admin: 05/27/18 03:04 Dose: 650 mg Lactated Ringer's (Lactated Ringer's) 1,000 mls @ 125 mls/hr IV .Q8H [place] Last Admin: 05/28/18 10:33 Dose: 125 mls/hr Azithromycin 500 mg/ Sodium (Chloride) 250 mls @ 250 mls/hr IVPB DAILY [place]; Protocol Last Admin: 05/28/18 09:15 Dose: 250 mls/hr Meropenem 500 mg/ Sodium (Chloride) 100 mls @ 100 mls/hr IVPB Q8 [place]; Protocol Last Admin: 05/28/18 16:51 Dose: 100 mls/hr Methylprednisolone 1 gm/ (Sodium Chloride) 250 mls @ 62.5 mls/hr IV DAILY [facility] Stop: 05/30/18 17:01 Last Admin: 05/28/18 10:33 Dose: 62.5 mls/hr Ibuprofen (Motrin Tab) 600 mg PO Q6 [facility] Last Admin: 05/28/18 16:51 Dose: 600 mg Metoprolol Tartrate (Lopressor) 50 mg PO Q12 [facility] Last Admin: 05/28/18 08:20 Dose: 50 mg Morphine Sulfate (Morphine) 2 mg IVP Q4 PRN PRN Reason: Pain, severe (8-10) Last Admin: 05/27/18 22:17 Dose: 2 mg Pantoprazole Sodium (Protonix Inj) 40 mg IVP DAILY [facility] Last Admin: 05/28/18 08:16 Dose: 40 mg - Labs Labs: 05/28/18 04:40 05/28/18 04:40 Assessment and Plan - Assessment and Plan (Free Text) Plan: pt seen at bedside, she states abdominal discomfort has improved. Pt tolerating liquid diet, no nausea or vomiting. abd: soft, improving epigastric tenderness, no peritoneal signs -pt tolerating regular diet -no acute intervention, pt can follow up as outpatient for possible elective surgery
[2018-05-28 09:03] LABS: BENZODIAZEPINES, UR NEGATIVE (NEGATIVE)
[2018-05-28] MEDS: Azithromycin 500 MG in Sodium Chloride 0.9% 250 ML IVPB SCH (09:15)
[2018-05-28 09:23] LABS: BARBITURATES, UR NEGATIVE (NEGATIVE); OPIATES, UR POSITIVE (NEGATIVE); PHENCYCLIDINE, UR NEGATIVE (NEGATIVE)
--- NOTE | 2018-05-28 10:05 | CP.CCUPN ---
CCU Subjective - Physician Review Subjective (Free Text): Uneventful night, did not need BiPAP, on HF nasal cannula now with no overt resp distress. No fever spikes overnight, T max 100.2F yesterday, SBP 110-120s, HR 90s, SPo2 100% on 40 % oxygen and 20 LPM. Allergies: NKDA Home Meds: none ROS: No other pertinent negs or positive on 10+ system review. Other PMSFH: All other Nursing and physician documentation reviewed to date; no new pertinent info noted relevant to current medical problems. EXAM- HEENT: no icterus, pupils equal, 3 mm and reactive, no nystagmus NECK: no visible JVD, supple, carotids equal upstroke bilat/no bruits CHEST: decreased BS bases, no wheezes audible HEART: regular, distant, S1S2, no murmur audible, no rubs. ABD: soft, no distention, no focal tenderness, BS hypoactive. EXT: trace edema, no mottling, cool, no cyanosis, no calf tenderness or palpable cords, distal pulses intact and symmetrical NEURO: no gross focal motor deficits SKIN: no rashes LABS: WBC= 5.7 HGB= 8.8 PLTs = 245K 7.45/38/108 Na= 141 K= 4.4 Cl= 104 HCO3= 30 BUN/Cr= 11/0.4 BS= 126 FE% satn = 6 Trops negative x 3 CXR: (my interp)- bilat effusions, LLL airB-gram IMPRESSION / MAJOR PROBLEMS NOW: 1. Acute Resp Hypoxemic Failure 2 bilateral Pneumonia with parapneumonic effusion; r/o atypical bacterial, fungal, viral pneumonitis 2. Chest pain 2 Lupus Pleuritis 3. Acute Mariann r/oed 4. Chronic Disease Anemia / Fe Deficiency Anemia 5. h/o Lupus Arthritis PLAN: 1. Assisted breathing support with HFNC; has averted the need for MV support. 2. Trial NSAIDs for any pleuritic pain. Pulse dose IV steroids day #2 of 3 given bilat effusions and lung changes that may represent Lupus lung disease. Procalcitonin only marginally elevated. If feasible to obtain pleural fluid, get analysis for LE cells. 3. DVT prx, watch for thromboembolic events. 4. Serial HGB, start supplemental iron therapy. PO PPi or H2Bs.
[2018-05-28] MEDS: methylPREDNISolone 1 GM in Sodium Chloride 0.9% 250 ML IV SCH (10:33)
[2018-05-28 11:28] LABS: BANDS 11 % (0-2); LYMPHOCYTE 3 % (20-50); MONOCYTE 2 % (0-10); NEUTROPHIL 84 % (42-75); PLATELET ESTIMATE NORMAL (NORMAL); TOTAL CELLS COUNTED 100
[2018-05-28 11:29] LABS: HYPOCHROMIC SLIGHT; MICROCYTOSIS SLIGHT
--- NOTE | 2018-05-28 12:15 | CP.PCM.PN ---
Subjective - Date & Time of Evaluation Date of Evaluation: 05/28/18 Time of Evaluation: 12:16 - Subjective Subjective: moderate clinical improvement sob improving no chest pains cough less o2 sat-99% on high flow o2 has not needed to use bipap was transferred to icu yesterday ct scan of chest results reviewed Objective - Vital Signs/Intake and Output Vital Signs (last 24 hours): Temp Pulse Resp BP Pulse Ox 98.1 F 96 H 20 133/76 98 05/28/18 04:00 05/28/18 10:00 05/28/18 10:00 05/28/18 10:00 05/28/18 10:00 Intake and Output: 05/28/18 05/28/18 06:59 18:59 Intake Total 500 Balance 500 - Medications Medications: Current Medications Acetaminophen (Tylenol 325mg Tab) 650 mg PO Q6 PRN PRN Reason: Pain, Mild (1-3) Last Admin: 05/27/18 03:04 Dose: 650 mg Lactated Ringer's (Lactated Ringer's) 1,000 mls @ 125 mls/hr IV .Q8H [place] Last Admin: 05/28/18 10:33 Dose: 125 mls/hr Azithromycin 500 mg/ Sodium (Chloride) 250 mls @ 250 mls/hr IVPB DAILY [place]; Protocol Last Admin: 05/28/18 09:15 Dose: 250 mls/hr Meropenem 500 mg/ Sodium (Chloride) 100 mls @ 100 mls/hr IVPB Q8 [place]; Protocol Last Admin: 05/28/18 08:16 Dose: 100 mls/hr Methylprednisolone 1 gm/ (Sodium Chloride) 250 mls @ 62.5 mls/hr IV DAILY [place] Stop: 05/30/18 17:01 Last Admin: 05/28/18 10:33 Dose: 62.5 mls/hr Ibuprofen (Motrin Tab) 600 mg PO Q6 [place] Last Admin: 05/28/18 09:17 Dose: 600 mg Metoprolol Tartrate (Lopressor) 50 mg PO Q12 [place] Last Admin: 05/28/18 08:20 Dose: 50 mg Morphine Sulfate (Morphine) 2 mg IVP Q4 PRN PRN Reason: Pain, severe (8-10) Last Admin: 05/27/18 22:17 Dose: 2 mg Pantoprazole Sodium (Protonix Inj) 40 mg IVP DAILY [place] Last Admin: 05/28/18 08:16 Dose: 40 mg - Labs Labs: 05/28/18 04:40 05/28/18 04:40 - Constitutional Appears: Chronically Ill - Head Exam Head Exam: ATRAUMATIC, NORMAL INSPECTION, NORMOCEPHALIC - Eye Exam Eye Exam: EOMI, Normal appearance, PERRL Pupil Exam: NORMAL ACCOMODATION, PERRL - ENT Exam ENT Exam: Mucous Membranes Moist, Normal Exam - Neck Exam Neck Exam: Full ROM, Normal Inspection. absent: Lymphadenopathy - Respiratory Exam Respiratory Exam: Decreased Breath Sounds, Prolonged Expiratory Phase, Rales, NORMAL BREATHING PATTERN - Cardiovascular Exam Cardiovascular Exam: REGULAR RHYTHM, +S1, +S2. absent: Murmur - GI/Abdominal Exam GI & Abdominal Exam: Soft, Tenderness, Normal Bowel Sounds - Rectal Exam Rectal Exam: NORMAL INSPECTION - Extremities Exam Extremities Exam: Full ROM, Normal Capillary Refill, Normal Inspection. absent: Joint Swelling, Pedal Edema - Back Exam Back Exam: NORMAL INSPECTION - Neurological Exam Neurological Exam: Alert, Awake, CN II-XII Intact, Normal Gait, Oriented x3 - Psychiatric Exam Psychiatric exam: Normal Affect, Normal Mood - Skin Skin Exam: Dry, Intact, Normal Color, Warm Assessment and Plan - Assessment and Plan (Free Text) Assessment: acute respiratory failure pneumonia with pleural effusion acute exac of lupus abd pains Plan: continue current rx
[2018-05-29] MEDS: Meropenem 500 MG in Sodium Chloride 0.9% 100 ML IVPB SCH ×3 (00:15→16:11)
[2018-05-29] MEDS: Lactated Ringer's 1,000 ML IV SCH ×3 (03:19→23:06)
[2018-05-29 05:23] LABS: HEMOGLOBIN 8.1 g/dL (12.0-16.0); MEAN CELL VOLUME 91.1 fl (81.0-99.0); MEAN CORPUSCULAR HEMOGLOBIN 30.6 pg (27.0-31.0); MEAN CORPUSCULAR HGB CONC 33.6 g/dL (33.0-37.0); RBC 2.65 Mil/uL (3.80-5.20); RED CELL DISTRIBUTION WIDTH 12.7 % (11.5-14.5); WHITE BLOOD COUNT 7.1 K/uL (4.8-10.8)
[2018-05-29 05:43] LABS: ALB/GLOB RATIO 0.7 (1.0-2.1); ALBUMIN 2.7 g/dL (3.5-5.0); ALT/SGPT 18 U/L (9-52); AST/SGOT 25 U/L (14-36); BLOOD UREA NITROGEN 18 mg/dl (7-17); CALCIUM 8.7 mg/dL (8.4-10.2); GFR NON-AFRICAN AMERICAN > 60
[2018-05-29] MEDS: Azithromycin 500 MG in Sodium Chloride 0.9% 250 ML IVPB SCH (08:48)
[2018-05-29] MEDS: methylPREDNISolone 1 GM in Sodium Chloride 0.9% 250 ML IV SCH (08:49)
--- NOTE | 2018-05-29 08:53 | CP.CCUPN ---
CCU Subjective - Physician Review Subjective (Free Text): Uneventful night, on HF nasal cannula; no overt resp distress. No fever spikes overnight, Temps 97-98, SBP 110-120s, HR 70s, SPo2 92-97% on 40 % oxygen and 20 LPM. ROS: No other pertinent negs or positive on 10+ system review. Other PMSFH: All other Nursing and physician documentation reviewed to date; no new pertinent info noted relevant to current medical problems. EXAM- HEENT: no icterus, pupils equal, 3 mm and reactive, no nystagmus NECK: no visible JVD, supple, carotids equal upstroke bilat/no bruits CHEST: decreased BS bases, no wheezes audible HEART: regular, distant, S1S2, no murmur audible, no rubs. ABD: soft, no distention, no focal tenderness, BS hypoactive. EXT: trace edema, no mottling, cool, no cyanosis, no calf tenderness or palpable cords, distal pulses intact and symmetrical NEURO: no gross focal motor deficits SKIN: no rashes LABS: WBC= 7.1 HGB= 8.1 PLTs = 258K Na= 141 K= 4.1 Cl= 106 HCO3= 27 BUN/Cr= 18/0.5 BS= 129 CXR: (my interp)- bilat effusions, bilat lower lobe air B-gram. IMPRESSION / MAJOR PROBLEMS NOW: 1. Acute Resp Hypoxemic Failure 2 bilateral Pneumonia with parapneumonic effusion; r/o atypical bacterial, fungal, viral pneumonitis 2. Chest pain 2 Lupus Pleuritis 3. Acute Mariann r/oed 4. Chronic Disease Anemia / Fe Deficiency Anemia 5. h/o Lupus Arthritis PLAN: 1. Taper oxygen if tolerated on HFNC; has averted the need for MV support. 2. Trial NSAIDs for any pleuritic pain. Pulse dose IV steroids day #3, then convert to PO prednisone (discusss with Pulm) given bilat effusions and lung changes that may represent Lupus lung disease. Procalcitonin only marginally elevated. If feasible to obtain pleural fluid, get analysis for LE cells. 3. DVT prx, watch for thromboembolic events. 4. Serial HGB, start supplemental iron therapy. PO PPi or H2Bs. 5. Gen Surg off case with negative HIDA. Stable for transfer to [facility] bed.
--- NOTE | 2018-05-29 12:25 | CP.PCM.PN ---
Subjective - Date & Time of Evaluation Date of Evaluation: 05/29/18 Time of Evaluation: 12:26 - Subjective Subjective: clinical condition has improved shortness of breath less o2 requirement less Objective - Vital Signs/Intake and Output Vital Signs (last 24 hours): Temp Pulse Resp BP Pulse Ox 98.2 F 86 24 118/74 93 L 05/29/18 08:00 05/29/18 10:00 05/29/18 10:00 05/29/18 10:00 05/29/18 10:00 Intake and Output: 05/29/18 05/29/18 06:59 18:59 Intake Total 1600 500 Output Total 250 300 Balance 1350 200 - Medications Medications: Current Medications Acetaminophen (Tylenol 325mg Tab) 650 mg PO Q6 PRN PRN Reason: Pain, Mild (1-3) Last Admin: 05/27/18 03:04 Dose: 650 mg Lactated Ringer's (Lactated Ringer's) 1,000 mls @ 125 mls/hr IV .Q8H [place] Last Admin: 05/29/18 03:19 Dose: 125 mls/hr Azithromycin 500 mg/ Sodium (Chloride) 250 mls @ 250 mls/hr IVPB DAILY [place]; Protocol Last Admin: 05/29/18 08:48 Dose: 250 mls/hr Meropenem 500 mg/ Sodium (Chloride) 100 mls @ 100 mls/hr IVPB Q8 [place]; Protocol Last Admin: 05/29/18 00:15 Dose: 100 mls/hr Methylprednisolone 1 gm/ (Sodium Chloride) 250 mls @ 62.5 mls/hr IV DAILY [place] Stop: 05/30/18 17:01 Last Admin: 05/29/18 08:49 Dose: 62.5 mls/hr Ibuprofen (Motrin Tab) 600 mg PO Q6 [place] Last Admin: 05/29/18 04:59 Dose: 600 mg Metoprolol Tartrate (Lopressor) 50 mg PO Q12 [place] Last Admin: 05/29/18 08:47 Dose: 50 mg Morphine Sulfate (Morphine) 2 mg IVP Q4 PRN PRN Reason: Pain, severe (8-10) Last Admin: 05/29/18 08:18 Dose: 2 mg Pantoprazole Sodium (Protonix Inj) 40 mg IVP DAILY [place] Last Admin: 05/28/18 08:16 Dose: 40 mg - Labs Labs: 05/29/18 04:25 05/29/18 04:25 - Constitutional Appears: No Acute Distress - Head Exam Head Exam: ATRAUMATIC, NORMAL INSPECTION, NORMOCEPHALIC - Eye Exam Eye Exam: EOMI, Normal appearance, PERRL Pupil Exam: NORMAL ACCOMODATION, PERRL - ENT Exam ENT Exam: Mucous Membranes Moist, Normal Exam - Neck Exam Neck Exam: Full ROM, Normal Inspection. absent: Lymphadenopathy - Respiratory Exam Respiratory Exam: Decreased Breath Sounds, Prolonged Expiratory Phase, Rales, NORMAL BREATHING PATTERN - Cardiovascular Exam Cardiovascular Exam: REGULAR RHYTHM, +S1, +S2. absent: Murmur - GI/Abdominal Exam GI & Abdominal Exam: Soft, Normal Bowel Sounds. absent: Tenderness - Rectal Exam Rectal Exam: NORMAL INSPECTION - Extremities Exam Extremities Exam: Full ROM, Normal Capillary Refill, Normal Inspection. absent: Joint Swelling, Pedal Edema - Back Exam Back Exam: NORMAL INSPECTION - Neurological Exam Neurological Exam: Alert, Awake, CN II-XII Intact, Normal Gait, Oriented x3 - Psychiatric Exam Psychiatric exam: Normal Affect, Normal Mood - Skin Skin Exam: Dry, Intact, Normal Color, Warm Assessment and Plan - Assessment and Plan (Free Text) Assessment: respiratory failure improved pneumonia with pleural effusion improving lupus pneumonitis with pleuritis and pericardial effusion Plan: continue antibiotics and steroid rx wean off high flow o2 re-evaluate need for thoracenteses in am
--- NOTE | 2018-05-29 13:18 | RAD ---
Date of service: 05/29/2018 HISTORY: f/u effusion COMPARISON: Comparison made with chest radiograph and CT chest both dated 05/27/2018 TECHNIQUE: 1 view obtained. FINDINGS: LUNGS: There are bilateral effusions with bibasilar atelectasis and/or infiltrates. Central pulmonary vasculature appears increased; rule out underlying mild pulmonary venous congestion PLEURA: As above. No pneumothorax apparent. CARDIOVASCULAR: No aortic atherosclerotic calcification present. Heart is enlarged. No pulmonary vascular congestion. OSSEOUS STRUCTURES: No significant abnormalities. VISUALIZED UPPER ABDOMEN: Normal. OTHER FINDINGS: None. IMPRESSION: There are bilateral effusions with bibasilar atelectasis and/or infiltrates. Central pulmonary vasculature appears increased; rule out underlying mild pulmonary venous congestion
--- NOTE | 2018-05-29 13:40 | CP.PCM.PN ---
Subjective - Date & Time of Evaluation Date of Evaluation: 05/29/18 Time of Evaluation: 08:00 - Subjective Subjective: awake alert denies chest pain less SOB no sputum production Objective - Vital Signs/Intake and Output Vital Signs (last 24 hours): Temp Pulse Resp BP Pulse Ox 97.3 F L 67 21 107/62 98 05/29/18 12:00 05/29/18 12:00 05/29/18 12:00 05/29/18 12:00 05/29/18 12:00 Intake and Output: 05/29/18 05/29/18 06:59 18:59 Intake Total 1600 500 Output Total 250 300 Balance 1350 200 - Medications Medications: Current Medications Acetaminophen (Tylenol 325mg Tab) 650 mg PO Q6 PRN PRN Reason: Pain, Mild (1-3) Last Admin: 05/27/18 03:04 Dose: 650 mg Lactated Ringer's (Lactated Ringer's) 1,000 mls @ 125 mls/hr IV .Q8H [place] Last Admin: 05/29/18 12:56 Dose: 125 mls/hr Azithromycin 500 mg/ Sodium (Chloride) 250 mls @ 250 mls/hr IVPB DAILY [place]; Protocol Last Admin: 05/29/18 08:48 Dose: 250 mls/hr Meropenem 500 mg/ Sodium (Chloride) 100 mls @ 100 mls/hr IVPB Q8 [place]; Protocol Last Admin: 05/29/18 12:55 Dose: 100 mls/hr Methylprednisolone 1 gm/ (Sodium Chloride) 250 mls @ 62.5 mls/hr IV DAILY [place] Stop: 05/30/18 17:01 Last Admin: 05/29/18 08:49 Dose: 62.5 mls/hr Ibuprofen (Motrin Tab) 600 mg PO Q6 [place] Last Admin: 05/29/18 12:59 Dose: 600 mg Metoprolol Tartrate (Lopressor) 50 mg PO Q12 [place] Last Admin: 05/29/18 08:47 Dose: 50 mg Morphine Sulfate (Morphine) 2 mg IVP Q4 PRN PRN Reason: Pain, severe (8-10) Last Admin: 05/29/18 08:18 Dose: 2 mg Pantoprazole Sodium (Protonix Inj) 40 mg IVP DAILY [place] Last Admin: 05/28/18 08:16 Dose: 40 mg - Labs Labs: 05/29/18 04:25 05/29/18 04:25 - Constitutional Appears: Non-toxic, No Acute Distress, Chronically Ill - Head Exam Head Exam: ATRAUMATIC, NORMAL INSPECTION, NORMOCEPHALIC - Eye Exam Eye Exam: EOMI, Normal appearance, PERRL Pupil Exam: NORMAL ACCOMODATION, PERRL - ENT Exam ENT Exam: Mucous Membranes Moist, Normal Exam - Neck Exam Neck Exam: Full ROM, Normal Inspection. absent: Lymphadenopathy - Respiratory Exam Respiratory Exam: Clear to Ausculation Bilateral, NORMAL BREATHING PATTERN - Cardiovascular Exam Cardiovascular Exam: REGULAR RHYTHM, +S1, +S2. absent: Murmur - GI/Abdominal Exam GI & Abdominal Exam: Soft, Normal Bowel Sounds. absent: Tenderness - Rectal Exam Rectal Exam: Deferred - Exam Exam: NORMAL INSPECTION - Extremities Exam Extremities Exam: Full ROM, Normal Capillary Refill, Normal Inspection. absent: Joint Swelling, Pedal Edema - Back Exam Back Exam: NORMAL INSPECTION - Neurological Exam Neurological Exam: Alert, Awake, CN II-XII Intact, Normal Gait, Oriented x3 - Psychiatric Exam Psychiatric exam: Normal Affect, Normal Mood - Skin Skin Exam: Dry, Intact, Normal Color, Warm Assessment and Plan (1) Chest pain Status: Acute (2) Lupus (systemic lupus erythematosus) Status: Acute (3) Pneumonia Status: Acute (4) RUQ pain Status: Resolved (5) Tachycardia Status: Acute - Assessment and Plan (Free Text) Assessment: bacterial cultures, influenza , mycoplasma and Legionella negative continues to improve on empiric rx CXR shows bilateral infiltrates Cont same Rx as per Dr Zarate
--- NOTE | 2018-05-29 17:51 | CARD ---
APPROVED REPORT Date of service: 05/25/2018 EKG Measurement Heart [id number] LA [id number] <Conclusion> Sinus tachycardia Otherwise normal ECG
--- NOTE | 2018-05-29 17:52 | CARD ---
APPROVED REPORT Date of service: 05/25/2018 EKG Measurement Heart [id number] [id number] [id number] <Conclusion> Sinus tachycardia Incomplete right bundle branch block Abnormal ECG
--- NOTE | 2018-05-29 21:18 | CP.PCM.PN ---
Subjective - Date & Time of Evaluation Date of Evaluation: 05/27/18 Time of Evaluation: 11:00 - Subjective Subjective: Patient is noted to be very tachycardic and more dyspneic. Noted to have decreased breath sounds on the right lower and midlung area. Has no fever HR 120's BP 120/76 Chest Xray worsening of pleural effusion right more than left Objective - Vital Signs/Intake and Output Vital Signs (last 24 hours): Temp Pulse Resp BP Pulse Ox 98.1 F 67 12 137/76 99 05/29/18 20:00 05/29/18 20:54 05/29/18 20:00 05/29/18 20:54 05/29/18 20:00 Intake and Output: 05/29/18 05/30/18 18:59 06:59 Intake Total 1965 150 Output Total 600 Balance 1365 150 - Medications Medications: Current Medications Acetaminophen (Tylenol 325mg Tab) 650 mg PO Q6 PRN PRN Reason: Pain, Mild (1-3) Last Admin: 05/27/18 03:04 Dose: 650 mg Furosemide (Lasix) 20 mg IVP Q12 [place] Last Admin: 05/29/18 20:54 Dose: 20 mg Lactated Ringer's (Lactated Ringer's) 1,000 mls @ 125 mls/hr IV .Q8H [place] Last Admin: 05/29/18 12:56 Dose: 125 mls/hr Azithromycin 500 mg/ Sodium (Chloride) 250 mls @ 250 mls/hr IVPB DAILY [place]; Protocol Last Admin: 05/29/18 08:48 Dose: 250 mls/hr Meropenem 500 mg/ Sodium (Chloride) 100 mls @ 100 mls/hr IVPB Q8 [place]; Protocol Last Admin: 05/29/18 16:11 Dose: 100 mls/hr Methylprednisolone 1 gm/ (Sodium Chloride) 250 mls @ 62.5 mls/hr IV DAILY [place] Stop: 05/30/18 17:01 Last Admin: 05/29/18 08:49 Dose: 62.5 mls/hr Ibuprofen (Motrin Tab) 600 mg PO Q6 [place] Last Admin: 05/29/18 20:59 Dose: Not Given Metoprolol Tartrate (Lopressor) 50 mg PO Q12 [place] Last Admin: 05/29/18 20:54 Dose: 50 mg Morphine Sulfate (Morphine) 2 mg IVP Q4 PRN PRN Reason: Pain, severe (8-10) Last Admin: 05/29/18 08:18 Dose: 2 mg Pantoprazole Sodium (Protonix Inj) 40 mg IVP DAILY [place] Last Admin: 05/29/18 14:52 Dose: 40 mg - Labs Labs: 05/29/18 04:25 05/29/18 04:25 - Head Exam Head Exam: NORMAL INSPECTION - ENT Exam ENT Exam: Normal Exam - Respiratory Exam Respiratory Exam: Decreased Breath Sounds, Respiratory Distress, Stridor - Cardiovascular Exam Cardiovascular Exam: Tachycardia - GI/Abdominal Exam GI & Abdominal Exam: Normal Bowel Sounds Assessment and Plan (1) Pleural effusion Status: Acute (2) Lupus (systemic lupus erythematosus) Status: Acute (3) Pericarditis Status: Acute (4) Tachycardia Status: Acute - Assessment and Plan (Free Text) Plan: Ct to monitor call ICU for eval for ICU transfer Follow up with pulmonary cont resp tx Follow up CT scan chest
--- NOTE | 2018-05-29 21:24 | CP.PCM.PN ---
Subjective - Date & Time of Evaluation Date of Evaluation: 05/28/18 Time of Evaluation: 13:00 - Subjective Subjective: Less SOB On nasal cannula Still with upper normal HR in the 90's Still with SOB Had low grade fever. Objective - Vital Signs/Intake and Output Vital Signs (last 24 hours): Temp Pulse Resp BP Pulse Ox 98.1 F 67 12 137/76 99 05/29/18 20:00 05/29/18 20:54 05/29/18 20:00 05/29/18 20:54 05/29/18 20:00 Intake and Output: 05/29/18 05/30/18 18:59 06:59 Intake Total 1965 150 Output Total 600 Balance 1365 150 - Medications Medications: Current Medications Acetaminophen (Tylenol 325mg Tab) 650 mg PO Q6 PRN PRN Reason: Pain, Mild (1-3) Last Admin: 05/27/18 03:04 Dose: 650 mg Furosemide (Lasix) 20 mg IVP Q12 [place] Last Admin: 05/29/18 20:54 Dose: 20 mg Lactated Ringer's (Lactated Ringer's) 1,000 mls @ 125 mls/hr IV .Q8H [place] Last Admin: 05/29/18 12:56 Dose: 125 mls/hr Azithromycin 500 mg/ Sodium (Chloride) 250 mls @ 250 mls/hr IVPB DAILY [place]; Protocol Last Admin: 05/29/18 08:48 Dose: 250 mls/hr Meropenem 500 mg/ Sodium (Chloride) 100 mls @ 100 mls/hr IVPB Q8 [place]; Protocol Last Admin: 05/29/18 16:11 Dose: 100 mls/hr Methylprednisolone 1 gm/ (Sodium Chloride) 250 mls @ 62.5 mls/hr IV DAILY [place] Stop: 05/30/18 17:01 Last Admin: 05/29/18 08:49 Dose: 62.5 mls/hr Ibuprofen (Motrin Tab) 600 mg PO Q6 [place] Last Admin: 05/29/18 20:59 Dose: Not Given Metoprolol Tartrate (Lopressor) 50 mg PO Q12 [place] Last Admin: 05/29/18 20:54 Dose: 50 mg Morphine Sulfate (Morphine) 2 mg IVP Q4 PRN PRN Reason: Pain, severe (8-10) Last Admin: 05/29/18 08:18 Dose: 2 mg Pantoprazole Sodium (Protonix Inj) 40 mg IVP DAILY [place] Last Admin: 05/29/18 14:52 Dose: 40 mg - Labs Labs: 05/29/18 04:25 05/29/18 04:25 - Head Exam Head Exam: NORMAL INSPECTION - Eye Exam Eye Exam: Normal appearance - ENT Exam ENT Exam: Mucous Membranes Moist - Respiratory Exam Respiratory Exam: Decreased Breath Sounds, Respiratory Distress, Stridor - Cardiovascular Exam Cardiovascular Exam: Tachycardia - GI/Abdominal Exam GI & Abdominal Exam: Soft Assessment and Plan (1) Pleural effusion Status: Acute (2) Lupus (systemic lupus erythematosus) Status: Acute (3) Pericarditis Status: Acute (4) Tachycardia Status: Acute - Assessment and Plan (Free Text) Plan: Cont meds Cont tx Follwo up with pulmonary monitor pleural eff consider thoracentesis
--- NOTE | 2018-05-29 21:29 | CP.PCM.PN ---
Subjective - Date & Time of Evaluation Date of Evaluation: 05/29/18 Time of Evaluation: 16:00 - Subjective Subjective: Patient is much more stable Noted comfortable in bed On nasal kayden BP and MT are stable and WNL Afebrile. Objective - Vital Signs/Intake and Output Vital Signs (last 24 hours): Temp Pulse Resp BP Pulse Ox 98.1 F 67 12 137/76 99 05/29/18 20:00 05/29/18 20:54 05/29/18 20:00 05/29/18 20:54 05/29/18 20:00 Intake and Output: 05/29/18 05/30/18 18:59 06:59 Intake Total 1965 150 Output Total 600 Balance 1365 150 - Medications Medications: Current Medications Acetaminophen (Tylenol 325mg Tab) 650 mg PO Q6 PRN PRN Reason: Pain, Mild (1-3) Last Admin: 05/27/18 03:04 Dose: 650 mg Furosemide (Lasix) 20 mg IVP Q12 [facility] Last Admin: 05/29/18 20:54 Dose: 20 mg Lactated Ringer's (Lactated Ringer's) 1,000 mls @ 125 mls/hr IV .Q8H [place] Last Admin: 05/29/18 12:56 Dose: 125 mls/hr Azithromycin 500 mg/ Sodium (Chloride) 250 mls @ 250 mls/hr IVPB DAILY [facility]; Protocol Last Admin: 05/29/18 08:48 Dose: 250 mls/hr Meropenem 500 mg/ Sodium (Chloride) 100 mls @ 100 mls/hr IVPB Q8 [facility]; Protocol Last Admin: 05/29/18 16:11 Dose: 100 mls/hr Methylprednisolone 1 gm/ (Sodium Chloride) 250 mls @ 62.5 mls/hr IV DAILY [place] Stop: 05/30/18 17:01 Last Admin: 05/29/18 08:49 Dose: 62.5 mls/hr Ibuprofen (Motrin Tab) 600 mg PO Q6 [place] Last Admin: 05/29/18 20:59 Dose: Not Given Metoprolol Tartrate (Lopressor) 50 mg PO Q12 [place] Last Admin: 05/29/18 20:54 Dose: 50 mg Morphine Sulfate (Morphine) 2 mg IVP Q4 PRN PRN Reason: Pain, severe (8-10) Last Admin: 05/29/18 08:18 Dose: 2 mg Pantoprazole Sodium (Protonix Inj) 40 mg IVP DAILY [place] Last Admin: 05/29/18 14:52 Dose: 40 mg - Labs Labs: 05/29/18 04:25 05/29/18 04:25 - Head Exam Head Exam: NORMAL INSPECTION - Eye Exam Eye Exam: Normal appearance - Respiratory Exam Respiratory Exam: Decreased Breath Sounds - Cardiovascular Exam Cardiovascular Exam: REGULAR RHYTHM - GI/Abdominal Exam GI & Abdominal Exam: Soft Assessment and Plan (1) Pleural effusion Status: Acute (2) Lupus (systemic lupus erythematosus) Status: Acute (3) Pericarditis Status: Acute (4) Tachycardia Status: Acute - Assessment and Plan (Free Text) Plan: Cpnt meds Cont tx Cont Lasix follow up with Pulmonary re thoracentesis
[2018-05-30] MEDS: Meropenem 500 MG in Sodium Chloride 0.9% 100 ML IVPB SCH (00:37)
[2018-05-30 05:35] LABS: HEMOGLOBIN 7.9 g/dL (12.0-16.0); MEAN CELL VOLUME 91.8 fl (81.0-99.0); MEAN CORPUSCULAR HEMOGLOBIN 30.1 pg (27.0-31.0); MEAN CORPUSCULAR HGB CONC 32.8 g/dL (33.0-37.0); RBC 2.62 Mil/uL (3.80-5.20); WHITE BLOOD COUNT 6.3 K/uL (4.8-10.8)
[2018-05-30 05:38] LABS: BLOOD UREA NITROGEN 20 mg/dl (7-17); CALCIUM 8.5 mg/dL (8.4-10.2); GFR NON-AFRICAN AMERICAN > 60
--- NOTE | 2018-05-30 07:40 | CP.PCM.CON ---
History of Present Illness - History of Present Illness History of Present Illness: Patient with no prior pain history is admitted for PNA and consulted for chest pain. Chart reviewed. Patient has been receiving Ibuprofen 600mg ATC and Morphine 2mg IV PRN, which was only give once yesterday. Patient complains of pain in the substernal area, but is able to take deep breaths. She's satisfied with the current regimen. She's not taking PO just yet. Past Patient History - Infectious Disease Hx of Infectious Diseases: None - Past Social History Smoking Status: Never Smoked - CARDIAC Hx Cardiac Disorders: No - PULMONARY Hx Respiratory Disorders: No - NEUROLOGICAL Hx Neurological Disorder: No - HEENT Hx HEENT Problems: No - RENAL Hx Chronic Kidney Disease: No - ENDOCRINE/METABOLIC Hx Endocrine Disorders: Yes Hx Systemic Lupus Erythematosus: Yes - HEMATOLOGICAL/ONCOLOGICAL Hx Blood Disorders: No - INTEGUMENTARY Hx Dermatological Problems: No - MUSCULOSKELETAL/RHEUMATOLOGICAL Hx Arthritis: Yes Hx Falls: No - GASTROINTESTINAL Hx Gastrointestinal Disorders: No - GENITOURINARY/GYNECOLOGICAL Hx Genitourinary Disorders: No - PSYCHIATRIC Hx Psychophysiologic Disorder: No Hx Substance Use: No - SURGICAL HISTORY Hx Surgeries: Yes Other/Comment: ovarian cyst removal - ANESTHESIA Hx Anesthesia: Yes Hx Anesthesia Reactions: No Meds Allergies/Adverse Reactions: Allergies Allergy/AdvReac Type Severity Reaction Status Date / Time No Known Allergies Allergy Verified 05/23/18 07:27 - Medications Medications: Current Medications Acetaminophen (Tylenol 325mg Tab) 650 mg PO Q6 PRN PRN Reason: Pain, Mild (1-3) Last Admin: 05/27/18 03:04 Dose: 650 mg Furosemide (Lasix) 20 mg IVP Q12 [place] Last Admin: 05/29/18 20:54 Dose: 20 mg Lactated Ringer's (Lactated Ringer's) 1,000 mls @ 125 mls/hr IV .Q8H [place] Last Admin: 05/29/18 23:06 Dose: 125 mls/hr Azithromycin 500 mg/ Sodium (Chloride) 250 mls @ 250 mls/hr IVPB DAILY [facility]; Protocol Last Admin: 05/29/18 08:48 Dose: 250 mls/hr Meropenem 500 mg/ Sodium (Chloride) 100 mls @ 100 mls/hr IVPB Q8 [facility]; Protocol Last Admin: 05/30/18 00:37 Dose: 100 mls/hr Methylprednisolone 1 gm/ (Sodium Chloride) 250 mls @ 62.5 mls/hr IV DAILY [facility] Stop: 05/30/18 17:01 Last Admin: 05/29/18 08:49 Dose: 62.5 mls/hr Ibuprofen (Motrin Tab) 600 mg PO Q6 [facility] Last Admin: 05/30/18 04:13 Dose: 600 mg Metoprolol Tartrate (Lopressor) 50 mg PO Q12 [facility] Last Admin: 05/29/18 20:54 Dose: 50 mg Morphine Sulfate (Morphine) 2 mg IVP Q4 PRN PRN Reason: Pain, severe (8-10) Last Admin: 05/29/18 08:18 Dose: 2 mg Pantoprazole Sodium (Protonix Inj) 40 mg IVP DAILY [facility] Last Admin: 05/29/18 14:52 Dose: 40 mg Physical Exam - Constitutional Appears: Non-toxic - Respiratory Exam Respiratory Exam: Accessory Muscle Use, Respiratory Distress Results - Vital Signs Recent Vital Signs: Last Vital Signs Temp 97.8 F 05/30/18 04:00 Pulse 64 05/30/18 06:00 Resp 96 H 05/30/18 06:00 BP 99/56 L 05/30/18 06:00 Pulse Ox 96 05/30/18 06:00 - Labs Result Diagrams: 05/30/18 05:00 05/30/18 05:10 Labs: Laboratory Results - last 24 hr 05/29/18 05/29/18 05/30/18 11:15 22:19 05:00 WBC 6.3 RBC 2.62 L Hgb 7.9 L Hct 24.0 L MCV 91.8 MCH 30.1 MCHC 32.8 L RDW 13.0 Plt Count 298 Sodium Potassium Chloride Carbon Dioxide Anion Gap BUN Creatinine Est GFR ( Amer) Est GFR (Non-Af Amer) POC Glucose (mg/dL) 128 H 151 H Random Glucose Calcium 05/30/18 05/30/18 05:10 07:11 WBC RBC Hgb Hct MCV MCH MCHC RDW Plt Count Sodium 141 Potassium 3.7 Chloride 106 Carbon Dioxide 28 Anion Gap 11 BUN 20 H Creatinine 0.5 L Est GFR ( Amer) > 60 Est GFR (Non-Af Amer) > 60 POC Glucose (mg/dL) 118 H Random Glucose 120 H Calcium 8.5 Assessment & Plan (1) Chest pain Assessment and Plan: 37 yo woman w/ PNA, SLE has chest pain. On minimal opioids but pain control is adequate. - continue Ibuprofen, can increase to 800mg once she tolerates PO - continue Morphine IV PRN, can change to Percocet once she tolerates PO - would keep opioids low due to its respiratory side effects - continue steroids Status: Acute
--- NOTE | 2018-05-30 07:56 | CP.CCUPN ---
CCU Subjective - Physician Review Subjective (Free Text): 05/30/18 The patient was Seen and examined by me at the bedside, Medical records reviewed and Management issues were discussed and formulated with the house staff. Events reviewed Awake, Alert and oriented. Comfortable, NAD Breathing unlabored Denies any chest pain, SOB or Palpitations Afebrile, NSR on the monitor Last 24H I&O 3235/600 Scheduled for Thoraccentesis today CCU Objective - Vital Signs / Intake & Output Vital Signs (Last 4 hours): Vital Signs Temp Pulse Resp BP Pulse Ox 05/30/18 06:00 64 96 H 99/56 L 96 05/30/18 04:00 97.8 F 80 12 127/72 94 L Intake and Output (Last 8hrs): Intake & Output 05/29/18 05/30/18 05/30/18 22:59 06:59 14:59 Intake Total 1115 870 Output Total 300 Balance 815 870 Weight 145 lb 3.2 oz Intake: IV 775 750 Intake, Piggyback 100 Oral 240 120 Output: Urine/Stool Mix 300 Other: # Voids Urine, Voided 1 1 - Physical Exam Head: Positive for: Atraumatic, Normocephalic Pupils: Positive for: PERRL Extroacular Muscles: Positive for: EOMI Conjunctiva: Positive for: Normal Ears: Positive for: Normal Mouth: Positive for: Moist Mucous Membranes Neck: Positive for: Normal Range of Motion, Trachea Midline. Negative for: Meningeal Signs, MIDLINE TENDERNESS, Paraspinal Tenderness, JVD, Lymphadenopathy, Bruit, Other Respiratory/Chest: Positive for: Clear to Auscultation, Good Air Exchange. Negative for: Respiratory Distress, Accessory Muscle Use Cardiovascular: Positive for: Regular Rate and Rhythm, Normal S1, S2. Negative for: Murmurs Abdomen: Positive for: Normal Bowel Sounds. Negative for: Tenderness, Distention Neurological: Positive for: GCS=15, CN II-XII Intact, Speech Normal, Motor Func Grossly Intact, Normal Sensory Function Psychiatric: Positive for: Alert, Oriented x 3, Normal Insight, Normal Concentration - Medications Active Medications: Active Medications Generic Name Dose Route Start Last Admin Trade Name Freq PRN Reason Stop Dose Admin Acetaminophen 650 mg 05/25/18 08:09 05/27/18 03:04 Tylenol 325mg Tab PO 650 mg Q6 PRN Administration Pain, Mild (1-3) Furosemide 20 mg 05/29/18 21:00 05/29/18 20:54 Lasix IVP 20 mg Q12 [place] Administration Lactated Ringer's 1,000 mls @ 125 mls/hr 05/26/18 11:00 05/29/18 23:06 Lactated Ringer's IV 125 mls/hr .Q8H [place] Administration Azithromycin 500 mg/ Sodium 250 mls @ 250 mls/hr 05/28/18 09:00 05/29/18 08:48 Chloride IVPB 250 mls/hr DAILY [place] Administration Protocol Meropenem 500 mg/ Sodium 100 mls @ 100 mls/hr 05/27/18 17:00 05/30/18 00:37 Chloride IVPB 100 mls/hr Q8 [place] Administration Protocol Methylprednisolone 1 gm/ 250 mls @ 62.5 mls/hr 05/27/18 17:00 05/29/18 08:49 Sodium Chloride IV 05/30/18 17:01 62.5 mls/hr DAILY [place] Administration Ibuprofen 600 mg 05/26/18 22:00 05/30/18 04:13 Motrin Tab PO 600 mg Q6 [place] Administration Metoprolol Tartrate 50 mg 05/28/18 09:00 05/29/18 20:54 Lopressor PO 50 mg Q12 [place] Administration Morphine Sulfate 2 mg 05/25/18 13:37 05/29/18 08:18 Morphine IVP 2 mg Q4 PRN Administration Pain, severe (8-10) Pantoprazole Sodium 40 mg 05/27/18 09:00 05/29/18 14:52 Protonix Inj IVP 40 mg DAILY [place] Administration - Patient Studies Lab Studies: Microbiology Studies 05/24/18 21:02 Blood Culture - Final Blood NO GROWTH AFTER 5 DAYS Gram Stain - Final TEST NOT PERFORMED 05/24/18 20:43 Blood Culture - Final Blood NO GROWTH AFTER 5 DAYS Gram Stain - Final TEST NOT PERFORMED 05/29/18 16:28 Gram Stain - Final Sputum 05/28/18 08:00 Urine Culture - Final Urine,Clean Catch No Growth (<1,000 CFU/ML) 05/27/18 11:50 Blood Culture - Preliminary Blood NO GROWTH AFTER 48 HOURS Lab Studies 05/30/18 05/30/18 05/30/18 Range/Units 07:11 05:10 05:00 WBC 6.3 (4.8-10.8) K/uL RBC 2.62 L (3.80-5.20) Mil/uL Hgb 7.9 L (12.0-16.0) g/dL Hct 24.0 L (34.0-47.0) % MCV 91.8 (81.0-99.0) fl MCH 30.1 (27.0-31.0) pg MCHC 32.8 L (33.0-37.0) g/dL RDW 13.0 (11.5-14.5) % Plt Count 298 (130-400) K/uL Sodium 141 (132-148) mmol/l Potassium 3.7 (3.6-5.0) MMOL/L Chloride 106 (98-107) mmol/L Carbon Dioxide 28 (22-30) mmol/L Anion Gap 11 (10-20) BUN 20 H (7-17) mg/dl Creatinine 0.5 L (0.7-1.2) mg/dl Est GFR ( Amer) > 60 Est GFR (Non-Af Amer) > 60 POC Glucose (mg/dL) 118 H (65-110) mg/dL Random Glucose 120 H (65-105) mg/dL Calcium 8.5 (8.4-10.2) mg/dL 05/29/18 05/29/18 Range/Units 22:19 11:15 WBC (4.8-10.8) K/uL RBC (3.80-5.20) Mil/uL Hgb (12.0-16.0) g/dL Hct (34.0-47.0) % MCV (81.0-99.0) fl MCH (27.0-31.0) pg MCHC (33.0-37.0) g/dL RDW (11.5-14.5) % Plt Count (130-400) K/uL Sodium (132-148) mmol/l Potassium (3.6-5.0) MMOL/L Chloride (98-107) mmol/L Carbon Dioxide (22-30) mmol/L Anion Gap (10-20) BUN (7-17) mg/dl Creatinine (0.7-1.2) mg/dl Est GFR ( Amer) Est GFR (Non-Af Amer) POC Glucose (mg/dL) 151 H 128 H (65-110) mg/dL Random Glucose (65-105) mg/dL Calcium (8.4-10.2) mg/dL Laboratory Results - last 24 hr 05/29/18 05/29/18 05/30/18 11:15 22:19 05:00 WBC 6.3 RBC 2.62 L Hgb 7.9 L Hct 24.0 L MCV 91.8 MCH 30.1 MCHC 32.8 L RDW 13.0 Plt Count 298 Sodium Potassium Chloride Carbon Dioxide Anion Gap BUN Creatinine Est GFR ( Amer) Est GFR (Non-Af Amer) POC Glucose (mg/dL) 128 H 151 H Random Glucose Calcium 05/30/18 05/30/18 05:10 07:11 WBC RBC Hgb Hct MCV MCH MCHC RDW Plt Count Sodium 141 Potassium 3.7 Chloride 106 Carbon Dioxide 28 Anion Gap 11 BUN 20 H Creatinine 0.5 L Est GFR ( Amer) > 60 Est GFR (Non-Af Amer) > 60 POC Glucose (mg/dL) 118 H Random Glucose 120 H Calcium 8.5 Radiology Impressions: Radiology Impressions Chest X-Ray 05/29/18 06:00 IMPRESSION: There are bilateral effusions with bibasilar atelectasis and/or infiltrates. Central pulmonary vasculature appears increased; rule out underlying mild pulmonary venous congestion Fingerstick Blood Sugar Results: 151 Review of Systems - Cardiovascular Cardiovascular: absent: Acrocyanosis, Chest Pain, Chest Pain at Rest, Chest Pain with Activity, Diaphoresis, Pain Radiating to Arm/Neck/Jaw - Respiratory Respiratory: absent: Cough, Dyspnea, Hemoptysis, Dyspnea on Exertion, Wheezing, Excessive Mucous Production Critical Care Progress Note - Extremities/Vascular Does the Patient have a Central Venous Catheter?: No Does the Patient need a Central Venous Catheter?: No Does the Patient have a Ribera Catheter?: No Does the Patient need a Ribera Catheter?: No - Nutrition Nutrition: Nutrition Category Date Time Status Regular Diet [DIET] Diets 05/28/18 Breakfast Active Assessment/Plan (1) Pleural effusion Current Visit: Yes Status: Acute Priority: High (2) Atypical chest pain Current Visit: Yes Status: Acute Priority: Medium (3) Lupus (systemic lupus erythematosus) Current Visit: Yes Status: Acute (4) Pericarditis Current Visit: Yes Status: Acute (5) Pneumonia Current Visit: Yes Status: Acute Priority: High (6) Tachycardia Current Visit: Yes Status: Acute Priority: High
--- NOTE | 2018-05-30 08:16 | CP.PCM.PN ---
Subjective - Date & Time of Evaluation Date of Evaluation: 05/30/18 Time of Evaluation: 08: - Subjective Subjective: CLINICALLY IMPROVING SOB LESS NO CHEST PAINS NO COUGH Objective - Vital Signs/Intake and Output Vital Signs (last 24 hours): Temp Pulse Resp BP Pulse Ox 97.8 F 64 16 99/56 L 96 05/30/18 04:00 05/30/18 06:00 05/30/18 07:56 05/30/18 06:00 05/30/18 06:00 Intake and Output: 05/30/18 05/30/18 06:59 18:59 Intake Total 1270 Balance 1270 - Medications Medications: Current Medications Acetaminophen (Tylenol 325mg Tab) 650 mg PO Q6 PRN PRN Reason: Pain, Mild (1-3) Last Admin: 05/27/18 03:04 Dose: 650 mg Furosemide (Lasix) 20 mg IVP Q12 [place] Last Admin: 05/29/18 20:54 Dose: 20 mg Lactated Ringer's (Lactated Ringer's) 1,000 mls @ 125 mls/hr IV .Q8H [place] Last Admin: 05/29/18 23:06 Dose: 125 mls/hr Azithromycin 500 mg/ Sodium (Chloride) 250 mls @ 250 mls/hr IVPB DAILY [place]; Protocol Last Admin: 05/29/18 08:48 Dose: 250 mls/hr Meropenem 500 mg/ Sodium (Chloride) 100 mls @ 100 mls/hr IVPB Q8 [place]; Protocol Last Admin: 05/30/18 00:37 Dose: 100 mls/hr Methylprednisolone 1 gm/ (Sodium Chloride) 250 mls @ 62.5 mls/hr IV DAILY [place] Stop: 05/30/18 17:01 Last Admin: 05/29/18 08:49 Dose: 62.5 mls/hr Ibuprofen (Motrin Tab) 600 mg PO Q6 [place] Last Admin: 05/30/18 04:13 Dose: 600 mg Metoprolol Tartrate (Lopressor) 50 mg PO Q12 [place] Last Admin: 05/29/18 20:54 Dose: 50 mg Morphine Sulfate (Morphine) 2 mg IVP Q4 PRN PRN Reason: Pain, severe (8-10) Last Admin: 05/29/18 08:18 Dose: 2 mg Pantoprazole Sodium (Protonix Inj) 40 mg IVP DAILY [place] Last Admin: 05/29/18 14:52 Dose: 40 mg - Labs Labs: 05/30/18 05:00 05/30/18 05:10 - Head Exam Head Exam: ATRAUMATIC, NORMAL INSPECTION, NORMOCEPHALIC - Eye Exam Eye Exam: EOMI, Normal appearance, PERRL Pupil Exam: NORMAL ACCOMODATION, PERRL - ENT Exam ENT Exam: Mucous Membranes Moist, Normal Exam - Neck Exam Neck Exam: Full ROM, Normal Inspection. absent: Lymphadenopathy - Respiratory Exam Respiratory Exam: Decreased Breath Sounds, Prolonged Expiratory Phase, Rales, N ORMAL BREATHING PATTERN Additional comments: ON HIGH FLOW O2 - Cardiovascular Exam Cardiovascular Exam: REGULAR RHYTHM, +S1, +S2. absent: Murmur - GI/Abdominal Exam GI & Abdominal Exam: Soft, Normal Bowel Sounds. absent: Tenderness - Rectal Exam Rectal Exam: NORMAL INSPECTION - Extremities Exam Extremities Exam: Full ROM, Normal Capillary Refill, Normal Inspection. absent: Joint Swelling, Pedal Edema - Back Exam Back Exam: NORMAL INSPECTION - Neurological Exam Neurological Exam: Alert, Awake, CN II-XII Intact, Normal Gait, Oriented x3 - Psychiatric Exam Psychiatric exam: Normal Affect, Normal Mood - Skin Skin Exam: Dry, Intact, Normal Color, Warm Assessment and Plan - Assessment and Plan (Free Text) Assessment: RESPIRATORY FAILURE IMPROVING PLEURAL AND PERICARDIAL EFFUSION LUPUS PLEURITIS AND PERICARDITIS ABD PAIN--RESOLVED Plan: FOR POSSIBLE THORACENTESES BY IR TODAY TAPER STEROIDS
[2018-05-30] MEDS ORDERED: Lactated Ringer's 1,000 ML IV SCH (08:23)
[2018-05-30] MEDS: methylPREDNISolone 1 GM in Sodium Chloride 0.9% 250 ML IV SCH (09:00)
--- NOTE | 2018-05-30 11:39 | CP.PCM.PN ---
Subjective - Date & Time of Evaluation Date of Evaluation: 05/30/18 Time of Evaluation: 11:37 - Subjective Subjective: Donovan lOmos, PGY-1, Cardiology Progress Note for Dr. Fu Patient seen and examined at bedside. Patient had no acute overnight events. Patient has significantly improved chest pain and shortness of breath. Patient was initially found to be in sinus bradycardia on monitor but subsuquently went into AVNRT. Patient was given cardizem 10 mg IV and went back into sinus rhythm. Objective - Vital Signs/Intake and Output Vital Signs (last 24 hours): Temp Pulse Resp BP Pulse Ox 98.1 F 53 L 10 L 135/66 99 05/30/18 08:00 05/30/18 08:00 05/30/18 08:00 05/30/18 08:00 05/30/18 08:00 Intake and Output: 05/30/18 05/30/18 06:59 18:59 Intake Total 1270 Balance 1270 - Medications Medications: Current Medications Acetaminophen (Tylenol 325mg Tab) 650 mg PO Q6 PRN PRN Reason: Pain, Mild (1-3) Last Admin: 05/27/18 03:04 Dose: 650 mg Diltiazem HCl (Cardizem) 30 mg PO Q6H [place] Furosemide (Lasix) 20 mg IVP Q12 [place] Last Admin: 05/29/18 20:54 Dose: 20 mg Azithromycin 500 mg/ Sodium (Chloride) 250 mls @ 250 mls/hr IVPB DAILY [facility]; Protocol Last Admin: 05/29/18 08:48 Dose: 250 mls/hr Meropenem 500 mg/ Sodium (Chloride) 100 mls @ 100 mls/hr IVPB Q8 [facility]; Protocol Last Admin: 05/30/18 00:37 Dose: 100 mls/hr Methylprednisolone 1 gm/ (Sodium Chloride) 250 mls @ 62.5 mls/hr IV DAILY [place] Stop: 05/30/18 17:01 Last Admin: 05/29/18 08:49 Dose: 62.5 mls/hr Lactated Ringer's (Lactated Ringer's) 1,000 mls @ 40 mls/hr IV .Q24H [place] Ibuprofen (Motrin Tab) 600 mg PO Q6 [place] Last Admin: 05/30/18 04:13 Dose: 600 mg Metoprolol Tartrate (Lopressor) 50 mg PO Q12 [facility] Last Admin: 05/29/18 20:54 Dose: 50 mg Pantoprazole Sodium (Protonix Inj) 40 mg IVP DAILY [facility] Last Admin: 05/29/18 14:52 Dose: 40 mg - Labs Labs: 05/30/18 05:00 05/30/18 05:10 - Constitutional Appears: In Acute Distress, Agitated - Head Exam Head Exam: ATRAUMATIC, NORMAL INSPECTION, NORMOCEPHALIC - Eye Exam Eye Exam: EOMI, PERRL - ENT Exam ENT Exam: Mucous Membranes Moist - Respiratory Exam Respiratory Exam: Clear to Auscultation Bilateral, increased breathing rate - Cardiovascular Exam Cardiovascular Exam: RRR, REGULAR RHYTHM, +S1, +S2, reproducible chest pain - GI/Abdominal Exam GI & Abdominal Exam: Normal Bowel Sounds, Soft. absent: Tenderness - Extremities Exam Extremities exam: Positive for: full ROM, normal inspection. Negative for: pedal edema - Neurological Exam Neurological exam: Alert, CN II-XII Intact, Normal Gait, Oriented x3 - Skin Skin Exam: Dry, Intact, Normal Color Assessment and Plan (1) Pericarditis Assessment & Plan: EKG: sinus tachycardia with HR: 120 Tropx3: negative Echocardiogram shows small circumferential pericardial effusion. BCx: negative for 48 hours CXR from 05/26/18: trace bilateral pleural effusions and basilar atelectasis ESR: 107 CRP: 349 Continue NSAIDs for likely pericarditis. Patient to go for thoracentesis for pleural effusion Status: Acute (2) RUQ pain Assessment & Plan: Abdominal U/S: mural thickening of gallbladder suspicious for potential acalculous cholecystitis. Normal CBD caliber. Abdominal CT on 05/26 only shows trace pericholecystic fluid. Follow up HIDA scan. Sufficient pain control. Currently on morphine and ibuprofen Status: Resolved (3) Tachycardia Assessment & Plan: EKG: NSR Tropx3: negative Echocardiogram shows small circumferential pericardial effusion. Likely 2/2 to pain. Pain control with morphine and ibuprofen Started cardizem 30 mg QID Status: Acute (4) Lupus (systemic lupus erythematosus) Assessment & Plan: Continue management as per primary team Status: Acute
--- NOTE | 2018-05-30 11:39 | CP.PCM.PN ---
Subjective - Date & Time of Evaluation Date of Evaluation: 05/30/18 Time of Evaluation: 10:00 - Subjective Subjective: less sob sees rheum as out patient- but noncompliant with meds for thoracentesis will de-escalate IV antibiotic rx Objective - Vital Signs/Intake and Output Vital Signs (last 24 hours): Temp Pulse Resp BP Pulse Ox 98.1 F 53 L 10 L 135/66 99 05/30/18 08:00 05/30/18 08:00 05/30/18 08:00 05/30/18 08:00 05/30/18 08:00 Intake and Output: 05/30/18 05/30/18 06:59 18:59 Intake Total 1270 Balance 1270 - Medications Medications: Current Medications Acetaminophen (Tylenol 325mg Tab) 650 mg PO Q6 PRN PRN Reason: Pain, Mild (1-3) Last Admin: 05/27/18 03:04 Dose: 650 mg Diltiazem HCl (Cardizem) 30 mg PO Q6H [facility] Furosemide (Lasix) 20 mg IVP Q12 [place] Last Admin: 05/29/18 20:54 Dose: 20 mg Azithromycin 500 mg/ Sodium (Chloride) 250 mls @ 250 mls/hr IVPB DAILY [facility]; Protocol Last Admin: 05/29/18 08:48 Dose: 250 mls/hr Meropenem 500 mg/ Sodium (Chloride) 100 mls @ 100 mls/hr IVPB Q8 [facility]; Protocol Last Admin: 05/30/18 00:37 Dose: 100 mls/hr Methylprednisolone 1 gm/ (Sodium Chloride) 250 mls @ 62.5 mls/hr IV DAILY [place] Stop: 05/30/18 17:01 Last Admin: 05/29/18 08:49 Dose: 62.5 mls/hr Lactated Ringer's (Lactated Ringer's) 1,000 mls @ 40 mls/hr IV .Q24H [place] Ibuprofen (Motrin Tab) 600 mg PO Q6 [place] Last Admin: 05/30/18 04:13 Dose: 600 mg Metoprolol Tartrate (Lopressor) 50 mg PO Q12 [place] Last Admin: 05/29/18 20:54 Dose: 50 mg Pantoprazole Sodium (Protonix Inj) 40 mg IVP DAILY [place] Last Admin: 05/29/18 14:52 Dose: 40 mg - Labs Labs: 05/30/18 05:00 05/30/18 05:10 - Constitutional Appears: No Acute Distress - Head Exam Head Exam: ATRAUMATIC, NORMAL INSPECTION, NORMOCEPHALIC - Eye Exam Eye Exam: EOMI, Normal appearance, PERRL Pupil Exam: NORMAL ACCOMODATION, PERRL - ENT Exam ENT Exam: Mucous Membranes Moist, Normal Exam - Neck Exam Neck Exam: Full ROM, Normal Inspection. absent: Lymphadenopathy - Respiratory Exam Respiratory Exam: Decreased Breath Sounds, Prolonged Expiratory Phase, Rales - Cardiovascular Exam Cardiovascular Exam: REGULAR RHYTHM, +S1, +S2. absent: Murmur - GI/Abdominal Exam GI & Abdominal Exam: Soft, Normal Bowel Sounds. absent: Tenderness - Rectal Exam Rectal Exam: Deferred - Exam Exam: NORMAL INSPECTION - Extremities Exam Extremities Exam: Full ROM, Normal Capillary Refill, Normal Inspection. absent: Joint Swelling, Pedal Edema - Back Exam Back Exam: NORMAL INSPECTION - Neurological Exam Neurological Exam: Alert, Awake, CN II-XII Intact, Normal Gait, Oriented x3 - Psychiatric Exam Psychiatric exam: Normal Affect, Normal Mood - Skin Skin Exam: Dry, Intact, Normal Color, Warm Assessment and Plan (1) Chest pain Status: Acute (2) Lupus (systemic lupus erythematosus) Status: Acute (3) Pneumonia Status: Acute (4) RUQ pain Status: Resolved (5) Tachycardia Status: Acute - Assessment and Plan (Free Text) Assessment: will de-escalate antibiotics as all cultures neg
[2018-05-30] MEDS ORDERED: Lidocaine Hydrochloride 1% 10 ML ONE (12:45)
--- NOTE | 2018-05-30 13:10 | PCM.SURG1 ---
Surgeon's Initial Post Op Note - Surgeon's Notes Surgeon: Sal Taylor MD [employer] Foreman: NONE Type of Anesthesia: Local Pre-Operative Diagnosis: Pleural effusion Operative Findings: US showed small bilateral pleural effusions Post-Operative Diagnosis: Pleural effusion Operation Performed: US guided right and left pleural effusion Specimen/Specimens Removed: 300 cc of clear fluid from left and 350 cc of clear fluid from right lung. Estimated Blood Loss: EBL {In ML}: 0 Blood Products Given: N/A Drains Used: No Drains Post-Op Condition: Fair Date of Surgery/Procedure: 05/30/18 Time of Surgery/Procedure: 13:00
[2018-05-30] MEDS: Azithromycin 500 MG in Sodium Chloride 0.9% 250 ML IVPB SCH (14:13)
[2018-05-30 16:10] LABS: BODY FLUID TYPE PLEURAL/THORACENTESI
--- NOTE | 2018-05-30 17:05 | RAD ---
Date of service: 05/30/2018 PROCEDURE: CHEST RADIOGRAPH, 1 VIEW HISTORY: Status post right and left thoracentesis COMPARISON: 05/29/2018. FINDINGS: LUNGS: Interval improvement in aeration of right lower lobe following thoracentesis. PLEURA: Decrease in right pleural effusion status post thoracentesis. No visible pneumothorax. CARDIOVASCULAR: No aortic atherosclerotic calcification present. Normal. OSSEOUS STRUCTURES: No significant abnormalities. VISUALIZED UPPER ABDOMEN: Normal. OTHER FINDINGS: None. IMPRESSION: Status post right thoracentesis common no visible pneumothorax. Decrease in right pleural effusion, commensurate interval improvement in expansion particularly right lower lobe. Residual consolidative changes and likely left pleural effusion.
[2018-05-30 17:22] LABS: AMYLASE,BODY FLUID < 30 mg/dL (NONE ESTABLISHED); GLUCOSE,BODY FLUID 89 mg/dL (NONE ESTABLISHED); TOTAL PROTEIN,BODY FLUID 2.6 g/dL (NONE ESTABLISHED)
--- NOTE | 2018-05-30 17:27 | CARD ---
APPROVED REPORT Date of service: 05/30/2018 EKG Measurement Heart [id number] [id number] <Conclusion> Normal sinus rhythm Normal ECG
[2018-05-30 18:39] LABS: BF GROSS APPEARANCE SL CLOUDY (CLEAR); BODY FLUID MONO/MACROPHAGE 14 % (0-0); BODY FLUID TOTAL COUNT 100 (0-0)
--- NOTE | 2018-05-30 23:18 | CP.PCM.PN ---
Subjective - Date & Time of Evaluation Date of Evaluation: 05/30/18 Time of Evaluation: 10:30 - Subjective Subjective: patient seen and examined at bedside. Interim events noted No complaints offered at this time still with DIEGO denies cp/sob/fever/chills. available diagnostic data reviewed Review of Systems All systems: reviewed and no additional remarkable complaints except mentioned above Objective Vital Signs Stable - Constitutional Appears: Non-toxic, No Acute Distress Head Exam: NORMAL INSPECTION Eye Exam: Normal appearance Respiratory Exam: NORMAL BREATHING PATTERN, decreased breath sounds Cardiovascular Exam: +S1, +S2 GI & Abdominal Exam: Soft Neurological Exam: Alert, Awake Psychiatric exam: Normal Affect, Normal Mood Skin Exam: Normal Color, Warm Assessment and Plan monitor vitals monitor labs Cont meds Cont tx consultants appreciated input for thoracentesis today f/u fluid analysis rest of plan as ordered Objective - Vital Signs/Intake and Output Vital Signs (last 24 hours): Temp Pulse Resp BP Pulse Ox 97.3 F L 72 24 109/63 96 05/30/18 16:00 05/30/18 22:44 05/30/18 22:44 05/30/18 22:44 05/30/18 22:00 Intake and Output: 05/30/18 05/31/18 18:59 06:59 Intake Total 1050 Output Total 1100 900 Balance -50 -900 - Medications Medications: Current Medications Acetaminophen (Tylenol 325mg Tab) 650 mg PO Q6 PRN PRN Reason: Pain, Mild (1-3) Last Admin: 05/27/18 03:04 Dose: 650 mg Diltiazem HCl (Cardizem) 30 mg PO Q6H [facility] Last Admin: 05/30/18 21:44 Dose: 30 mg Furosemide (Lasix) 20 mg IVP Q12 [facility] Last Admin: 05/30/18 20:21 Dose: 20 mg Azithromycin 500 mg/ Sodium (Chloride) 250 mls @ 250 mls/hr IVPB DAILY [facility]; Protocol Last Admin: 05/30/18 14:13 Dose: 250 mls/hr Ceftriaxone Sodium 1 gm/ (Sodium Chloride) 100 mls @ 100 mls/hr IVPB DAILY [facility]; Protocol Last Admin: 05/30/18 18:28 Dose: 100 mls/hr Ibuprofen (Motrin Tab) 600 mg PO Q6 [facility] Last Admin: 05/30/18 21:44 Dose: 600 mg Pantoprazole Sodium (Protonix Inj) 40 mg IVP DAILY [facility] Last Admin: 05/30/18 14:11 Dose: 40 mg - Labs Labs: 05/30/18 05:00 05/30/18 05:10 Assessment and Plan (1) Pleural effusion Status: Acute
[2018-05-31 05:16] LABS: HEMOGLOBIN 8.5 g/dL (12.0-16.0); MEAN CELL VOLUME 91.2 fl (81.0-99.0); MEAN CORPUSCULAR HEMOGLOBIN 30.3 pg (27.0-31.0); MEAN CORPUSCULAR HGB CONC 33.2 g/dL (33.0-37.0); RBC 2.82 Mil/uL (3.80-5.20); RED CELL DISTRIBUTION WIDTH 12.9 % (11.5-14.5); WHITE BLOOD COUNT 6.1 K/uL (4.8-10.8)
[2018-05-31 05:39] LABS: ALB/GLOB RATIO 0.8 (1.0-2.1); ALBUMIN 2.7 g/dL (3.5-5.0); ALT/SGPT 24 U/L (9-52); AST/SGOT 24 U/L (14-36); BLOOD UREA NITROGEN 18 mg/dl (7-17); CALCIUM 8.2 mg/dL (8.4-10.2); GFR NON-AFRICAN AMERICAN > 60
[2018-05-31] MEDS: Azithromycin 500 MG in Sodium Chloride 0.9% 250 ML IVPB SCH (09:12)
--- NOTE | 2018-05-31 10:38 | CP.CCUPN ---
CCU Subjective - Physician Review Subjective (Free Text): 05/31/18 10:28 The patient was Seen and examined by me at the bedside, Medical records reviewed and Management issues were discussed and formulated with the house staff. Events reviewed Underwent Bilateral Thoraccentesis yesterday (pleural fluids exudative with markedly elevated LDH) Awake, Alert and oriented. Comfortable, NAD Breathing unlabored Denies any chest pain, SOB or Palpitations Afebrile, NSR on the monitor 05/31/18 11:09 Patient currently hemodynamically stable with markedly improved respiratory status after bilateral thoracentesis yesterday planning to continue current management, supplemental oxygen to keep O2 saturation above 94 Continue intravenous antibiotic with ceftriaxone and azithromycin Continue diuresis with Lasix (switch to PO) Patient is hemodynamically stable to be transferred out of the ICU CCU Objective - Vital Signs / Intake & Output Vital Signs (Last 4 hours): Vital Signs Temp Pulse Resp BP Pulse Ox 05/31/18 08:00 98.1 F 61 19 122/61 95 Intake and Output (Last 8hrs): Intake & Output 05/30/18 05/31/18 05/31/18 22:59 06:59 14:59 Intake Total 470 200 100 Output Total 1500 Balance -1030 200 100 Weight 145 lb Intake: Intake, Piggyback 350 100 Oral 120 200 Output: Urine 900 Urine, Voided 900 Other 600 Other: # Bowel Movements 1 - Physical Exam Head: Positive for: Atraumatic, Normocephalic Pupils: Positive for: PERRL Extroacular Muscles: Positive for: EOMI Conjunctiva: Positive for: Normal Ears: Positive for: Normal Mouth: Positive for: Moist Mucous Membranes Neck: Positive for: Normal Range of Motion, Trachea Midline. Negative for: Meningeal Signs, MIDLINE TENDERNESS, Paraspinal Tenderness, JVD, Lymphadenopathy, Bruit, Other Respiratory/Chest: Positive for: Clear to Auscultation, Good Air Exchange. Negative for: Respiratory Distress, Accessory Muscle Use Cardiovascular: Positive for: Regular Rate and Rhythm, Normal S1, S2. Negative for: Murmurs Abdomen: Positive for: Normal Bowel Sounds. Negative for: Tenderness, Distention Neurological: Positive for: GCS=15, CN II-XII Intact, Speech Normal, Motor Func Grossly Intact, Normal Sensory Function Psychiatric: Positive for: Alert, Oriented x 3, Normal Insight, Normal Concentration - Medications Active Medications: Active Medications Generic Name Dose Route Start Last Admin Trade Name Freq PRN Reason Stop Dose Admin Acetaminophen 650 mg 05/25/18 08:09 05/27/18 03:04 Tylenol 325mg Tab PO 650 mg Q6 PRN Administration Pain, Mild (1-3) Diltiazem HCl 30 mg 05/30/18 10:30 05/31/18 03:37 Cardizem PO 30 mg Q6H [facility] Administration Furosemide 20 mg 05/29/18 21:00 05/30/18 20:21 Lasix IVP 20 mg Q12 [facility] Administration Azithromycin 500 mg/ Sodium 250 mls @ 250 mls/hr 05/28/18 09:00 05/31/18 09:12 Chloride IVPB 250 mls/hr DAILY [facility] Administration Protocol Ceftriaxone Sodium 1 gm/ 100 mls @ 100 mls/hr 05/30/18 13:45 05/31/18 09:11 Sodium Chloride IVPB 100 mls/hr DAILY [facility] Administration Protocol Ibuprofen 600 mg 05/26/18 22:00 05/31/18 09:10 Motrin Tab PO 600 mg Q6 [facility] Administration Pantoprazole Sodium 40 mg 05/27/18 09:00 05/31/18 09:11 Protonix Inj IVP 40 mg DAILY [facility] Administration Prednisone 20 mg 05/31/18 10:00 Prednisone Tab PO DAILY [facility] - Patient Studies Lab Studies: Microbiology Studies 05/27/18 11:50 Blood Culture - Preliminary Blood NO GROWTH AFTER 3 DAYS 05/29/18 16:28 Gram Stain - Final Sputum Sputum Culture - Preliminary NORMAL ORAL CASANDRA Lab Studies 05/31/18 05/31/18 05/30/18 Range/Units 04:28 04:28 22:43 WBC 6.1 (4.8-10.8) K/uL RBC 2.82 L (3.80-5.20) Mil/uL Hgb 8.5 L (12.0-16.0) g/dL Hct 25.8 L (34.0-47.0) % MCV 91.2 (81.0-99.0) fl MCH 30.3 (27.0-31.0) pg MCHC 33.2 (33.0-37.0) g/dL RDW 12.9 (11.5-14.5) % Plt Count 307 (130-400) K/uL Sodium 139 (132-148) mmol/l Potassium 3.5 L (3.6-5.0) MMOL/L Chloride 102 (98-107) mmol/L Carbon Dioxide 30 (22-30) mmol/L Anion Gap 11 (10-20) BUN 18 H (7-17) mg/dl Creatinine 0.5 L (0.7-1.2) mg/dl Est GFR ( Amer) > 60 Est GFR (Non-Af Amer) > 60 POC Glucose (mg/dL) 156 H (65-110) mg/dL Random Glucose 152 H (65-105) mg/dL Calcium 8.2 L (8.4-10.2) mg/dL Total Bilirubin 0.1 L (0.2-1.3) mg/dl AST 24 (14-36) U/L ALT 24 (9-52) U/L Alkaline Phosphatase 81 (38-126) U/L Total Protein 6.3 (6.3-8.2) G/DL Albumin 2.7 L (3.5-5.0) g/dL Globulin 3.6 (2.2-3.9) gm/dL Albumin/Globulin Ratio 0.8 L (1.0-2.1) Fluid Source Fluid Appearance (CLEAR) Fluid WBC (0.0-300.0) /mm3 Fluid RBC (0.0-0.0) /mm3 Fluid Tot Cell Count (0-0) Fluid Neutrophils (0-0) % Fluid Lymphocytes (0-0) % Fld Monocyte/Macrophag (0-0) % Fluid Glucose (NONE ESTABLISHED) mg/dL Fluid Total Protein (NONE ESTABLISHED) g/dL Fluid LDH (NONE ESTABLISHED) IU Fluid Amylase (NONE ESTABLISHED) mg/dL Fluid Triglycerides (NONE ESTABLISHED) mg/dL Fluid Comment 05/30/18 05/30/18 05/30/18 Range/Units 16:53 16:00 16:00 WBC (4.8-10.8) K/uL RBC (3.80-5.20) Mil/uL Hgb (12.0-16.0) g/dL Hct (34.0-47.0) % MCV (81.0-99.0) fl MCH (27.0-31.0) pg MCHC (33.0-37.0) g/dL RDW (11.5-14.5) % Plt Count (130-400) K/uL Sodium (132-148) mmol/l Potassium (3.6-5.0) MMOL/L Chloride (98-107) mmol/L Carbon Dioxide (22-30) mmol/L Anion Gap (10-20) BUN (7-17) mg/dl Creatinine (0.7-1.2) mg/dl Est GFR ( Amer) Est GFR (Non-Af Amer) POC Glucose (mg/dL) 130 H (65-110) mg/dL Random Glucose (65-105) mg/dL Calcium (8.4-10.2) mg/dL Total Bilirubin (0.2-1.3) mg/dl AST (14-36) U/L ALT (9-52) U/L Alkaline Phosphatase (38-126) U/L Total Protein (6.3-8.2) G/DL Albumin (3.5-5.0) g/dL Globulin (2.2-3.9) gm/dL Albumin/Globulin Ratio (1.0-2.1) Fluid Source Pleural/thoracentesi Fluid Appearance Sl cloudy (CLEAR) Fluid WBC 761.0 H (0.0-300.0) /mm3 Fluid RBC 971.0 H (0.0-0.0) /mm3 Fluid Tot Cell Count 100 H (0-0) Fluid Neutrophils 75.0 H (0-0) % Fluid Lymphocytes 11.0 H (0-0) % Fld Monocyte/Macrophag 14 H (0-0) % Fluid Glucose 89 (NONE ESTABLISHED) mg/dL Fluid Total Protein 2.6 (NONE ESTABLISHED) g/dL Fluid LDH 1010 (NONE ESTABLISHED) IU Fluid Amylase < 30 (NONE ESTABLISHED) mg/dL Fluid Triglycerides 27 (NONE ESTABLISHED) mg/dL Fluid Comment Yellow Laboratory Results - last 24 hr 05/30/18 05/30/18 05/30/18 16:00 16:00 16:53 WBC RBC Hgb Hct MCV MCH MCHC RDW Plt Count Sodium Potassium Chloride Carbon Dioxide Anion Gap BUN Creatinine Est GFR ( Amer) Est GFR (Non-Af Amer) POC Glucose (mg/dL) 130 H Random Glucose Calcium Total Bilirubin AST ALT Alkaline Phosphatase Total Protein Albumin Globulin Albumin/Globulin Ratio Fluid Source Pleural/thoracentesi Fluid Appearance Sl cloudy Fluid WBC 761.0 H Fluid RBC 971.0 H Fluid Tot Cell Count 100 H Fluid Neutrophils 75.0 H Fluid Lymphocytes 11.0 H Fld Monocyte/Macrophag 14 H Fluid Glucose 89 Fluid Total Protein 2.6 Fluid LDH 1010 Fluid Amylase < 30 Fluid Triglycerides 27 Fluid Comment Yellow 05/30/18 05/31/18 05/31/18 22:43 04:28 04:28 WBC 6.1 RBC 2.82 L Hgb 8.5 L Hct 25.8 L MCV 91.2 MCH 30.3 MCHC 33.2 RDW 12.9 Plt Count 307 Sodium 139 Potassium 3.5 L Chloride 102 Carbon Dioxide 30 Anion Gap 11 BUN 18 H Creatinine 0.5 L Est GFR ( Amer) > 60 Est GFR (Non-Af Amer) > 60 POC Glucose (mg/dL) 156 H Random Glucose 152 H Calcium 8.2 L Total Bilirubin 0.1 L AST 24 ALT 24 Alkaline Phosphatase 81 Total Protein 6.3 Albumin 2.7 L Globulin 3.6 Albumin/Globulin Ratio 0.8 L Fluid Source Fluid Appearance Fluid WBC Fluid RBC Fluid Tot Cell Count Fluid Neutrophils Fluid Lymphocytes Fld Monocyte/Macrophag Fluid Glucose Fluid Total Protein Fluid LDH Fluid Amylase Fluid Triglycerides Fluid Comment Radiology Impressions: Radiology Impressions Chest X-Ray 05/30/18 13:14 IMPRESSION: Status post right thoracentesis common no visible pneumothorax. Decrease in right pleural effusion, commensurate interval improvement in expansion particularly right lower lobe. Residual consolidative changes and likely left pleural effusion. Fingerstick Blood Sugar Results: 156 Critical Care Progress Note - Nutrition Nutrition: Nutrition Category Date Time Status Regular Diet [DIET] Diets 05/28/18 Breakfast Active Assessment/Plan (1) Pleural effusion Current Visit: Yes Status: Acute Priority: High (2) Atypical chest pain Current Visit: Yes Status: Acute Priority: Medium (3) Lupus (systemic lupus erythematosus) Current Visit: Yes Status: Acute (4) Pericarditis Current Visit: Yes Status: Acute (5) Pneumonia Current Visit: Yes Status: Acute Priority: High (6) Tachycardia Current Visit: Yes Status: Acute Priority: High
--- NOTE | 2018-05-31 11:25 | CP.PCM.PN ---
Subjective - Date & Time of Evaluation Date of Evaluation: 05/31/18 Time of Evaluation: 07:00 - Subjective Subjective: seen on rounds less SOB no fever Objective - Vital Signs/Intake and Output Vital Signs (last 24 hours): Temp Pulse Resp BP Pulse Ox 98.1 F 85 25 H 114/58 L 95 05/31/18 08:00 05/31/18 11:02 05/31/18 11:02 05/31/18 11:02 05/31/18 11:02 Intake and Output: 05/31/18 05/31/18 06:59 18:59 Intake Total 200 100 Output Total 900 Balance -700 100 - Medications Medications: Current Medications Acetaminophen (Tylenol 325mg Tab) 650 mg PO Q6 PRN PRN Reason: Pain, Mild (1-3) Last Admin: 05/27/18 03:04 Dose: 650 mg Diltiazem HCl (Cardizem) 30 mg PO Q6H [facility] Last Admin: 05/31/18 11:02 Dose: 30 mg Furosemide (Lasix) 20 mg PO BID [facility] Azithromycin 500 mg/ Sodium (Chloride) 250 mls @ 250 mls/hr IVPB DAILY [facility]; Protocol Last Admin: 05/31/18 09:12 Dose: 250 mls/hr Ceftriaxone Sodium 1 gm/ (Sodium Chloride) 100 mls @ 100 mls/hr IVPB DAILY [facility]; Protocol Last Admin: 05/31/18 09:11 Dose: 100 mls/hr Ibuprofen (Motrin Tab) 600 mg PO Q6 [facility] Last Admin: 05/31/18 09:10 Dose: 600 mg Pantoprazole Sodium (Protonix Inj) 40 mg IVP DAILY [facility] Last Admin: 05/31/18 09:11 Dose: 40 mg Prednisone (Prednisone Tab) 20 mg PO DAILY [facility] Last Admin: 05/31/18 10:57 Dose: 20 mg - Labs Labs: 05/31/18 04:28 05/31/18 04:28 - Constitutional Appears: Non-toxic, No Acute Distress, Chronically Ill - Head Exam Head Exam: ATRAUMATIC, NORMAL INSPECTION, NORMOCEPHALIC - Eye Exam Eye Exam: EOMI, Normal appearance, PERRL Pupil Exam: NORMAL ACCOMODATION, PERRL - ENT Exam ENT Exam: Mucous Membranes Moist, Normal Exam - Neck Exam Neck Exam: Full ROM, Normal Inspection. absent: Lymphadenopathy - Respiratory Exam Respiratory Exam: Clear to Ausculation Bilateral, NORMAL BREATHING PATTERN - Cardiovascular Exam Cardiovascular Exam: REGULAR RHYTHM, +S1, +S2. absent: Murmur - GI/Abdominal Exam GI & Abdominal Exam: Soft, Normal Bowel Sounds. absent: Tenderness - Rectal Exam Rectal Exam: Deferred - Exam Exam: NORMAL INSPECTION - Extremities Exam Extremities Exam: Full ROM, Normal Capillary Refill, Normal Inspection. absent: Joint Swelling, Pedal Edema - Back Exam Back Exam: NORMAL INSPECTION - Neurological Exam Neurological Exam: Alert, Awake, CN II-XII Intact, Normal Gait, Oriented x3 - Psychiatric Exam Psychiatric exam: Normal Affect, Normal Mood - Skin Skin Exam: Dry, Intact, Normal Color, Warm Assessment and Plan (1) Chest pain Status: Acute (2) Lupus (systemic lupus erythematosus) Status: Acute (3) Pneumonia Status: Acute (4) RUQ pain Status: Resolved (5) Tachycardia Status: Acute
--- NOTE | 2018-05-31 13:17 | CP.PCM.PN ---
Subjective - Date & Time of Evaluation Date of Evaluation: 05/31/18 Time of Evaluation: 13:15 - Subjective Subjective: Donovan Olmos, PGY-1, Cardiology Progress Note for Dr. Fu Patient seen and examined at bedside. Patient had no acute overnight events. Patient has significantly improved chest pain and shortness of breath. Objective - Vital Signs/Intake and Output Vital Signs (last 24 hours): Temp Pulse Resp BP Pulse Ox 98.1 F 85 25 H 114/58 L 95 05/31/18 08:00 05/31/18 11:02 05/31/18 11:02 05/31/18 11:02 05/31/18 11:02 Intake and Output: 05/31/18 05/31/18 06:59 18:59 Intake Total 200 350 Output Total 900 500 Balance -700 -150 - Medications Medications: Current Medications Acetaminophen (Tylenol 325mg Tab) 650 mg PO Q6 PRN PRN Reason: Pain, Mild (1-3) Last Admin: 05/27/18 03:04 Dose: 650 mg Diltiazem HCl (Cardizem) 30 mg PO Q6H [facility] Last Admin: 05/31/18 11:02 Dose: 30 mg Furosemide (Lasix) 20 mg PO BID [facility] Azithromycin 500 mg/ Sodium (Chloride) 250 mls @ 250 mls/hr IVPB DAILY [facility]; Protocol Last Admin: 05/31/18 09:12 Dose: 250 mls/hr Ceftriaxone Sodium 1 gm/ (Sodium Chloride) 100 mls @ 100 mls/hr IVPB DAILY [facility]; Protocol Last Admin: 05/31/18 09:11 Dose: 100 mls/hr Ibuprofen (Motrin Tab) 600 mg PO Q6 [facility] Last Admin: 05/31/18 09:10 Dose: 600 mg Pantoprazole Sodium (Protonix Inj) 40 mg IVP DAILY [facility] Last Admin: 05/31/18 09:11 Dose: 40 mg Prednisone (Prednisone Tab) 20 mg PO DAILY [facility] Last Admin: 05/31/18 10:57 Dose: 20 mg - Labs Labs: 05/31/18 04:28 05/31/18 04:28 - Constitutional Appears: In Acute Distress, Agitated - Head Exam Head Exam: ATRAUMATIC, NORMAL INSPECTION, NORMOCEPHALIC - Eye Exam Eye Exam: EOMI, PERRL - ENT Exam ENT Exam: Mucous Membranes Moist - Respiratory Exam Respiratory Exam: Clear to Auscultation Bilateral, increased breathing rate - Cardiovascular Exam Cardiovascular Exam: RRR, REGULAR RHYTHM, +S1, +S2, reproducible chest pain - GI/Abdominal Exam GI & Abdominal Exam: Normal Bowel Sounds, Soft. absent: Tenderness - Extremities Exam Extremities exam: Positive for: full ROM, normal inspection. Negative for: pedal edema - Neurological Exam Neurological exam: Alert, CN II-XII Intact, Normal Gait, Oriented x3 - Skin Skin Exam: Dry, Intact, Normal Color Assessment and Plan (1) Pericarditis Assessment & Plan: EKG: sinus tachycardia with HR: 120 Tropx3: negative Echocardiogram shows small circumferential pericardial effusion. BCx: negative for 48 hours CXR from 05/26/18: trace bilateral pleural effusions and basilar atelectasis ESR: 107 CRP: 349 Continue NSAIDs for likely pericarditis. Status: Acute (2) RUQ pain Assessment & Plan: Abdominal U/S: mural thickening of gallbladder suspicious for potential acalculous cholecystitis. Normal CBD caliber. Abdominal CT on 05/26 only shows trace pericholecystic fluid. Follow up HIDA scan. Sufficient pain control. Currently on morphine and ibuprofen Status: Resolved (3) Tachycardia Assessment & Plan: EKG: NSR Tropx3: negative Echocardiogram shows small circumferential pericardial effusion. Likely 2/2 to pain. Pain control with morphine and ibuprofen Continue cardizem 30 mg QID Status: Acute (4) Lupus (systemic lupus erythematosus) Assessment & Plan: Continue management as per primary team Status: Acute
[2018-06-01 06:33] LABS: ALB/GLOB RATIO 0.8 (1.0-2.1); ALBUMIN 2.7 g/dL (3.5-5.0); ALT/SGPT 23 U/L (9-52); AST/SGOT 24 U/L (14-36); BLOOD UREA NITROGEN 18 mg/dl (7-17); CALCIUM 8.1 mg/dL (8.4-10.2); GFR NON-AFRICAN AMERICAN > 60
[2018-06-01 06:46] LABS: MEAN CELL VOLUME 91.9 fl (81.0-99.0); MEAN CORPUSCULAR HEMOGLOBIN 30.4 pg (27.0-31.0); MEAN CORPUSCULAR HGB CONC 33.1 g/dL (33.0-37.0); RBC 2.96 Mil/uL (3.80-5.20); RED CELL DISTRIBUTION WIDTH 12.9 % (11.5-14.5); WHITE BLOOD COUNT 6.1 K/uL (4.8-10.8)
[2018-06-01 08:27] VITALS: BP 131/75; RESP 18; TEMP 97.5; O2SAT 96
[2018-06-01] MEDS: Azithromycin 500 MG in Sodium Chloride 0.9% 250 ML IVPB SCH (09:30)
[2018-06-01 09:32] VITALS: PULSE 60
--- NOTE | 2018-06-01 10:05 | CP.PCM.PN ---
Subjective - Date & Time of Evaluation Date of Evaluation: 06/01/18 Time of Evaluation: 10:05 - Subjective Subjective: FEELS BETTER NO CHEST PAINS/SB ALL PLEURAL FLUID CULTURES--NON-REVEALING Objective - Vital Signs/Intake and Output Vital Signs (last 24 hours): Temp Pulse Resp BP Pulse Ox 97.5 F L 60 18 131/75 96 06/01/18 08:25 06/01/18 09:31 06/01/18 08:25 06/01/18 09:31 06/01/18 08:25 Intake and Output: 06/01/18 06/01/18 06:59 18:59 Intake Total 8 Balance 8 - Medications Medications: Current Medications Acetaminophen (Tylenol 325mg Tab) 650 mg PO Q6 PRN PRN Reason: Pain, Mild (1-3) Last Admin: 05/27/18 03:04 Dose: 650 mg Diltiazem HCl (Cardizem) 30 mg PO Q6H [facility] Last Admin: 06/01/18 09:31 Dose: 30 mg Furosemide (Lasix) 20 mg PO BID [facility] Last Admin: 06/01/18 09:31 Dose: 20 mg Azithromycin 500 mg/ Sodium (Chloride) 250 mls @ 250 mls/hr IVPB DAILY [facility]; Pro [facility] Last Admin: 06/01/18 09:30 Dose: 250 mls/hr Ceftriaxone Sodium 1 gm/ (Sodium Chloride) 100 mls @ 100 mls/hr IVPB DAILY [facility]; Protocol Last Admin: 06/01/18 09:30 Dose: 100 mls/hr Ibuprofen (Motrin Tab) 600 mg PO Q6 [facility] Last Admin: 06/01/18 09:32 Dose: 600 mg Pantoprazole Sodium (Protonix Inj) 40 mg IVP DAILY [facility] Last Admin: 06/01/18 09:29 Dose: 40 mg Prednisone (Prednisone Tab) 20 mg PO DAILY [facility] Last Admin: 06/01/18 09:29 Dose: 20 mg - Labs Labs: 06/01/18 06:15 06/01/18 06:15 - Constitutional Appears: No Acute Distress - Head Exam Head Exam: ATRAUMATIC, NORMAL INSPECTION, NORMOCEPHALIC - Eye Exam Eye Exam: EOMI, Normal appearance, PERRL Pupil Exam: NORMAL ACCOMODATION, PERRL - ENT Exam ENT Exam: Mucous Membranes Moist, Normal Exam - Neck Exam Neck Exam: Full ROM, Normal Inspection. absent: Lymphadenopathy - Respiratory Exam Respiratory Exam: Decreased Breath Sounds, Rales, NORMAL BREATHING PATTERN - Cardiovascular Exam Cardiovascular Exam: REGULAR RHYTHM, +S1, +S2. absent: Murmur - GI/Abdominal Exam GI & Abdominal Exam: Soft, Normal Bowel Sounds. absent: Tenderness - Rectal Exam Rectal Exam: NORMAL INSPECTION - Extremities Exam Extremities Exam: Full ROM, Normal Capillary Refill, Normal Inspection. absent: Joint Swelling, Pedal Edema - Back Exam Back Exam: NORMAL INSPECTION - Neurological Exam Neurological Exam: Alert, Awake, CN II-XII Intact, Normal Gait, Oriented x3 - Psychiatric Exam Psychiatric exam: Normal Affect, Normal Mood - Skin Skin Exam: Dry, Intact, Normal Color, Warm Assessment and Plan - Assessment and Plan (Free Text) Assessment: SLE WITH PLEURAL EFFUSION/PNEUMONITIS AND PERICARDITIS--IMPROVED Plan: NO FURTHER PULMONARY INTERVENTION FOR NOW WILL SIGN OFF CASE AND SEE AGAIN AT YOUR REQUEST MAY PLACE ON TAPERING DOSE OF STEROIDS AND ORAL ANTIBIOTICS ON D/C ADVISED TO FOLLOW UP AT [facility] ON D/C HOME
--- NOTE | 2018-06-01 11:41 | CP.PCM.PCO ---
Assessment/Plan - Assessment Assessment: pt. doing well , denies sob, cp, cough, fever or chills Lungs CTA pt. cleared for d/c to home today by and pt. to cont. Augmentin 875 mg po bid x 5 more days cont. prednisone taper, cont. meds ( E rx sent to [facility] pharmacy) instructed to f/u at [facility] lupus clinic f/u with outpatient Meds e rx to pharmacy
--- NOTE | 2018-06-01 13:46 | CP.PCM.PN ---
Subjective - Date & Time of Evaluation Date of Evaluation: 06/01/18 Time of Evaluation: 08:00 - Subjective Subjective: improving on day 7 IV antibiotics cultures neg Objective - Vital Signs/Intake and Output Vital Signs (last 24 hours): Temp Pulse Resp BP Pulse Ox 97.5 F L 60 18 131/75 96 06/01/18 08:25 06/01/18 09:31 06/01/18 08:25 06/01/18 09:31 06/01/18 08:25 Intake and Output: 06/01/18 06/01/18 06:59 18:59 Intake Total 8 Balance 8 - Medications Medications: Current Medications Acetaminophen (Tylenol 325mg Tab) 650 mg PO Q6 PRN PRN Reason: Pain, Mild (1-3) Last Admin: 05/27/18 03:04 Dose: 650 mg Diltiazem HCl (Cardizem) 30 mg PO Q6H [facility] Last Admin: 06/01/18 09:31 Dose: 30 mg Furosemide (Lasix) 20 mg PO BID [facility] Last Admin: 06/01/18 09:31 Dose: 20 mg Azithromycin 500 mg/ Sodium (Chloride) 250 mls @ 250 mls/hr IVPB DAILY [facility]; Protocol Last Admin: 06/01/18 09:30 Dose: 250 mls/hr Ceftriaxone Sodium 1 gm/ (Sodium Chloride) 100 mls @ 100 mls/hr IVPB DAILY [facility]; Protocol Last Admin: 06/01/18 09:30 Dose: 100 mls/hr Ibuprofen (Motrin Tab) 600 mg PO Q6 [facility] Last Admin: 06/01/18 09:32 Dose: 600 mg Pantoprazole Sodium (Protonix Inj) 40 mg IVP DAILY [facility] Last Admin: 06/01/18 09:29 Dose: 40 mg Prednisone (Prednisone Tab) 20 mg PO DAILY [facility] Last Admin: 06/01/18 09:29 Dose: 20 mg - Labs Labs: 06/01/18 06:15 06/01/18 06:15 - Constitutional Appears: Non-toxic, Chronically Ill - Head Exam Head Exam: NORMOCEPHALIC - Eye Exam Eye Exam: absent: Scleral icterus - ENT Exam ENT Exam: Mucous Membranes Dry - Neck Exam Neck Exam: absent: Lymphadenopathy - Respiratory Exam Respiratory Exam: Decreased Breath Sounds - Cardiovascular Exam Cardiovascular Exam: REGULAR RHYTHM - GI/Abdominal Exam GI & Abdominal Exam: Distended, Soft - Rectal Exam Rectal Exam: Deferred - Exam Exam: NORMAL INSPECTION - Extremities Exam Extremities Exam: absent: Pedal Edema - Back Exam Back Exam: absent: CVA tenderness (L), CVA tenderness (R) - Neurological Exam Neurological Exam: Alert, Awake, CN II-XII Intact, Oriented x3 Assessment and Plan (1) Chest pain Status: Acute (2) Lupus (systemic lupus erythematosus) Status: Acute (3) Pneumonia Status: Acute (4) RUQ pain Status: Resolved (5) Tachycardia Status: Acute - Assessment and Plan (Free Text) Assessment: cont PO rx follow up with Dr Zarate
--- NOTE | 2018-06-01 15:30 | CP.PCM.PN ---
Subjective - Date & Time of Evaluation Date of Evaluation: 06/01/18 Time of Evaluation: 15:29 - Subjective Subjective: Donovan Olmos, PGY-1, Cardiology Progress Note for Dr. Fu Patient seen and examined at bedside. Patient had no acute overnight events. Patient has significantly improved chest pain and shortness of breath. Objective - Vital Signs/Intake and Output Vital Signs (last 24 hours): Temp Pulse Resp BP Pulse Ox 97.5 F L 60 18 131/75 96 06/01/18 08:25 06/01/18 09:31 06/01/18 08:25 06/01/18 09:31 06/01/18 08:25 Intake and Output: 06/01/18 06/01/18 06:59 18:59 Intake Total 8 Balance 8 - Labs Labs: 06/01/18 06:15 06/01/18 06:15 - Constitutional Appears: In Acute Distress, Agitated - Head Exam Head Exam: ATRAUMATIC, NORMAL INSPECTION, NORMOCEPHALIC - Eye Exam Eye Exam: EOMI, PERRL - ENT Exam ENT Exam: Mucous Membranes Moist - Respiratory Exam Respiratory Exam: Clear to Auscultation Bilateral, increased breathing rate - Cardiovascular Exam Cardiovascular Exam: RRR, REGULAR RHYTHM, +S1, +S2, reproducible chest pain - GI/Abdominal Exam GI & Abdominal Exam: Normal Bowel Sounds, Soft. absent: Tenderness - Extremities Exam Extremities exam: Positive for: full ROM, normal inspection. Negative for: pedal edema - Neurological Exam Neurological exam: Alert, CN II-XII Intact, Normal Gait, Oriented x3 - Skin Skin Exam: Dry, Intact, Normal Color Assessment and Plan (1) Pericarditis Assessment & Plan: EKG: sinus tachycardia with HR: 120 Tropx3: negative Echocardiogram shows small circumferential pericardial effusion. BCx: negative for 48 hours CXR from 05/26/18: trace bilateral pleural effusions and basilar atelectasis ESR: 107 CRP: 349 Continue NSAIDs for likely pericarditis. Cardiology will sign off at this time. Please reconsult if patient has new or concerning symptoms. Status: Acute (2) Tachycardia Assessment & Plan: EKG: NSR Tropx3: negative Echocardiogram shows small circumferential pericardial effusion. Likely 2/2 to pain. Pain control with morphine and ibuprofen Continue cardizem 30 mg QID Status: Acute (3) Lupus (systemic lupus erythematosus) Assessment & Plan: Continue management as per primary team Status: Acute
--- NOTE | 2018-06-01 16:14 | US ---
PROCEDURE: Date of procedure: 05/30/2018 Procedure: 1. Ultrasound-guided Right and LEFT thoracentesis Medications:5CC 1% Lidocaine HISTORY: Bilateral pleural effusion, shortness of breath, pericardial effusion TECHNIQUE: Following informed consent ,the Patients' right chest was marked. Procedure time-out was called, and the patient was placed in the sitting position and limited ultrasound showed small bilateral pleural effusion. The patient's right and left back were prepped and draped in the usual sterile fashion. After the skin was anesthetized with lidocaine, a drainage catheter was advanced under ultrasound guidance into the pleural space. Ultrasound-guided right thoracentesis was performed. A total of 350 cubic centimeters of straw-colored fluid removed without complication. This was followed by ultrasound-guided left thoracentesis with removal of 300 cubic centimeters of straw-colored fluid without complication. A Xeroform dressing was applied. IMPRESSION: Ultrasound guided right and left thoracentesis. There were no immediate complications.
[2018-06-01 23:19] LABS: ANCA SCREEN NEGATIVE (NEGATIVE)
--- NOTE | 2018-06-05 18:50 | CP.PCM.DIS ---
Provider - Provider Date of Admission: 05/26/18 14:16 Attending physician: Jevon Vasquez MD Consults: 05/25/18 09:55 Cardiology Consult Routine Comment: Consulting Provider: Ajit Fu Consulting Physician: Ajit Fu Reason for Consult: cp, new LBB, sinus tachycardia 05/26/18 09:13 Physician Consult Routine Comment: Consulting Provider: Jacklyn Torrez Consulting Physician: Jacklyn Torrez Reason for Consult: CP, abd pain Additional Comments: pt. with pmhx Lupus, arthritis admitted with cp, tachycardia pna 05/26/18 09:15 Psychiatry Consult Routine Comment: Consulting Provider: Earnestine Arroyo Consulting Physician: Earnestine Arroyo Reason for Consult: hx lupus, adm with cp, pna, flat affect 05/26/18 09:44 Surgery [General Surgery Consult] Routine Comment: Consulting Provider: Ephraim Wayne Consulting Physician: Ephraim Wayne Reason for Consult: cholecystitis 05/27/18 11:45 Infectious Disease Consult Routine Comment: Consulting Provider: Harley Thomson Consulting Physician: Harley Thomson Reason for Consult: pna, lupus, acute cholecystitis Pulmonology Consult Routine Comment: Consulting Provider: Gurwinder Zarate I Consulting Physician: Gurwinder Zarate I Reason for Consult: lupus; pna; acute cholecystitis Time Spent in preparation of Discharge (in minutes): 30 Diagnosis - Discharge Diagnosis (1) Pneumonia Status: Acute Priority: High (2) Tachycardia Status: Acute Priority: High Hospital Course - Lab Results Lab Results: Micro Results 05/30/18 16:00 Pleural Fluid Gram Stain - Final 05/30/18 16:00 Pleural Fluid Body Fluid Culture - Final NO GROWTH AFTER 4 DAYS 05/31/18 07:10 Nose MRSA Culture (Admit) - Final MRSA NOT DETECTED 05/27/18 11:50 Blood Blood Culture - Final NO GROWTH AFTER 5 DAYS 05/27/18 11:50 Blood Gram Stain - Final TEST NOT PERFORMED 05/29/18 16:28 Sputum Gram Stain - Final 05/29/18 16:28 Sputum Sputum Culture - Final NORMAL ORAL CASANDRA 05/24/18 21:02 Blood Blood Culture - Final NO GROWTH AFTER 5 DAYS 05/24/18 21:02 Blood Gram Stain - Final TEST NOT PERFORMED 05/24/18 20:43 Blood Blood Culture - Final NO GROWTH AFTER 5 DAYS 05/24/18 20:43 Blood Gram Stain - Final TEST NOT PERFORMED 05/28/18 08:00 Urine,Clean Catch Urine Culture - Final No Growth (<1,000 CFU/ML) Most Recent Lab Values WBC 6.1 K/uL (4.8-10.8) 06/01/18 06:15 RBC 2.96 Mil/uL (3.80-5.20) L 06/01/18 06:15 Hgb 9.0 g/dL (12.0-16.0) L 06/01/18 06:15 Hct 27.2 % (34.0-47.0) L 06/01/18 06:15 MCV 91.9 fl (81.0-99.0) 06/01/18 06:15 MCH 30.4 pg (27.0-31.0) 06/01/18 06:15 MCHC 33.1 g/dL (33.0-37.0) 06/01/18 06:15 RDW 12.9 % (11.5-14.5) 06/01/18 06:15 Plt Count 343 K/uL (130-400) 06/01/18 06:15 MPV 8.2 fl (7.2-11.7) 05/28/18 04:40 Neut % (Auto) 91.0 % (50.0-75.0) H 05/28/18 04:40 Lymph % (Auto) 6.3 % (20.0-40.0) L 05/28/18 04:40 [place] % (Auto) 2.5 % (0.0-10.0) 05/28/18 04:40 Eos % (Auto) 0.1 % (0.0-4.0) 05/28/18 04:40 Baso % (Auto) 0.1 % (0.0-2.0) 05/28/18 04:40 Neut # (Auto) 5.2 K/uL (1.8-7.0) 05/28/18 04:40 Lymph # (Auto) 0.4 K/uL (1.0-4.3) L 05/28/18 04:40 [place] # (Auto) 0.1 K/uL (0.0-0.8) 05/28/18 04:40 Eos # (Auto) 0.0 K/uL (0.0-0.7) 05/28/18 04:40 Baso # (Auto) 0.0 K/uL (0.0-0.2) 05/28/18 04:40 Neutrophils % (Manual) 84 % (42-75) H 05/28/18 04:40 Band Neutrophils % 11 % (0-2) H* 05/28/18 04:40 Lymphocytes % (Manual) 3 % (20-50) L 05/28/18 04:40 Monocytes % (Manual) 2 % (0-10) 05/28/18 04:40 Platelet Estimate Normal (NORMAL) 05/28/18 04:40 Hypochromasia (manual) Slight 05/28/18 04:40 Microcytosis (manual) Slight 05/28/18 04:40 ESR 107 mm/hr (0-20) H 05/27/18 17:10 pCO2 38 mm/Hg (35-45) 05/28/18 04:54 pO2 108 mm/Hg (80-100) H 05/28/18 04:54 HCO3 26.8 mmol/L (21-28) 05/28/18 04:54 ABG pH 7.45 (7.35-7.45) 05/28/18 04:54 ABG Total CO2 27.6 mmol/L (22-28) 05/28/18 04:54 ABG O2 Saturation 100.1 % (95-98) H 05/28/18 04:54 ABG O2 Content 12.5 ML/dL (15-23) L 05/28/18 04:54 ABG Base Excess 2.3 mmol/L (-2.0-3.0) 05/28/18 04:54 ABG Hemoglobin 8.9 g/dL (11.7-17.4) L 05/28/18 04:54 ABG Carboxyhemoglobin 1.5 % (0.5-1.5) 05/28/18 04:54 POC ABG HHb (Measured) -0.1 % (0.0-5.0) L 05/28/18 04:54 ABG Methemoglobin 0.4 % (0.0-3.0) 05/28/18 04:54 ABG O2 Capacity 12.5 mL/dL (16-24) L 05/28/18 04:54 Lisandro Test Yes 05/28/18 04:54 ABG Potassium 3.7 mmol/L (3.6-5.2) 05/25/18 09:53 A-a O2 Difference 130.0 mm/Hg 05/28/18 04:54 Hgb O2 Saturation 98.2 % (95.0-98.0) H 05/28/18 04:54 Sodium 138.0 mmol/L (132-148) 05/25/18 09:53 Chloride 108.0 mmol/L (98-107) H 05/25/18 09:53 Glucose 114 mg/dL (65-105) H 05/25/18 09:53 Lactate 0.7 mmol/L (0.7-2.1) 05/25/18 09:53 Liter Flow 20 05/28/18 04:54 Vent Mode High flow lpm 05/28/18 04:54 FiO2 40.0 % 05/28/18 04:54 Sodium 139 mmol/l (132-148) 06/01/18 06:15 Potassium 3.3 MMOL/L (3.6-5.0) L 06/01/18 06:15 Chloride 102 mmol/L (98-107) 06/01/18 06:15 Carbon Dioxide 30 mmol/L (22-30) 06/01/18 06:15 Anion Gap 10 (10-20) 06/01/18 06:15 BUN 18 mg/dl (7-17) H 06/01/18 06:15 Creatinine 0.5 mg/dl (0.7-1.2) L 06/01/18 06:15 Est GFR ( Amer) > 60 06/01/18 06:15 Est GFR (Non-Af Amer) > 60 06/01/18 06:15 POC Glucose (mg/dL) 157 mg/dL (65-110) H 06/01/18 10:52 Random Glucose 89 mg/dL (65-105) 06/01/18 06:15 Lactic Acid 1.3 mmol/L (0.7-2.1) 05/26/18 11:00 Calcium 8.1 mg/dL (8.4-10.2) L 06/01/18 06:15 Phosphorus 4.4 mg/dl (2.5-4.5) 05/28/18 04:40 Magnesium 2.1 MG/DL (1.6-2.3) 05/28/18 04:40 Iron 14 ug/dL (37-170) L 05/27/18 08:00 TIBC 225 ug/dL (250-450) L 05/27/18 08:00 % Saturation 6 % (20-55) L 05/27/18 08:00 Ferritin 170.0 ng/Ml (6.24-137.0) H 05/27/18 04:35 Total Bilirubin 0.2 mg/dl (0.2-1.3) 06/01/18 06:15 AST 24 U/L (14-36) 06/01/18 06:15 ALT 23 U/L (9-52) 06/01/18 06:15 Alkaline Phosphatase 70 U/L (38-126) 06/01/18 06:15 Lactate Dehydrogenase 459 U/L (313-618) 05/27/18 17:10 Troponin I < 0.0120 ng/mL (0.00-0.120) 05/25/18 20:30 C-Reactive Protein 349.70 mg/L (0.0-9.9) H 05/27/18 17:10 Total Protein 6.3 G/DL (6.3-8.2) 06/01/18 06:15 Albumin 2.7 g/dL (3.5-5.0) L 06/01/18 06:15 Globulin 3.5 gm/dL (2.2-3.9) 06/01/18 06:15 Albumin/Globulin Ratio 0.8 (1.0-2.1) L 06/01/18 06:15 Amylase 44 U/L (30-110) 05/26/18 11:00 Lipase 11 U/L (23-300) L 05/26/18 11:00 Vitamin B12 299 pg/mL (239-931) 05/27/18 04:35 RBC Folate 829 ng/mL RBC (>280) 05/27/18 04:35 Procalcitonin 1.07 NG/ML (0.19-0.49) H 05/27/18 17:10 Thyroxine (T4) 7.07 ug/dl (5.5-11.0) 05/25/18 09:50 Total T3 0.762 nmol/L (1.49-2.60) L 05/25/18 09:50 TSH 3rd Generation 0.63 mIU/ML (0.46-4.68) 05/25/18 09:50 Arterial Blood Potassium 3.7 mmol/L (3.6-5.2) 05/25/18 09:53 Fluid Source Pleural/thoracentesi 05/30/18 16:00 Fluid Appearance Sl cloudy (CLEAR) 05/30/18 16:00 Fluid pH 6.7 05/30/18 16:00 Fluid pH Source Body fluid 05/30/18 16:00 Fluid WBC 761.0 /mm3 (0.0-300.0) H 05/30/18 16:00 Fluid RBC 971.0 /mm3 (0.0-0.0) H 05/30/18 16:00 Fluid Tot Cell Count 100 (0-0) H 05/30/18 16:00 Fluid Neutrophils 75.0 % (0-0) H 05/30/18 16:00 Fluid Lymphocytes 11.0 % (0-0) H 05/30/18 16:00 Fld Monocyte/Macrophag 14 % (0-0) H 05/30/18 16:00 Fluid Glucose 89 mg/dL (NONE ESTABLISHED) 05/30/18 16:00 Fluid Total Protein 2.6 g/dL (NONE ESTABLISHED) 05/30/18 16:00 Fluid Albumin 1.1 g/dL 05/30/18 15:47 Fluid LDH 1010 IU (NONE ESTABLISHED) 05/30/18 16:00 Fluid Amylase < 30 mg/dL (NONE ESTABLISHED) 05/30/18 16:00 Fluid Triglycerides 27 mg/dL (NONE ESTABLISHED) 05/30/18 16:00 Fluid Comment Yellow 05/30/18 16:00 Urine Opiates Screen Positive (NEGATIVE) H 05/28/18 08:00 Urine Methadone Screen Negative (NEGATIVE) 05/28/18 08:00 Ur Barbiturates Screen Negative (NEGATIVE) 05/28/18 08:00 Ur Phencyclidine Scrn Negative (NEGATIVE) 05/28/18 08:00 Ur Amphetamines Screen Negative (NEGATIVE) 05/28/18 08:00 U Benzodiazepines Scrn Negative (NEGATIVE) 05/28/18 08:00 U Oth Cocaine Metabols Negative (NEGATIVE) 05/28/18 08:00 U Cannabinoids Screen Negative (NEGATIVE) 05/28/18 08:00 AMANDA Screen Positive (Negative) H 05/27/18 17:10 AMANDA Titer 1:160 Titer (<1:40) H 05/27/18 17:10 AMANDA Pattern Homogeneous H 05/27/18 17:10 ANCA Screen Negative (NEGATIVE) 05/27/18 17:10 c-ANCA Titer TNP 05/27/18 17:10 Proteinase 3 (PR3) <1.0 AI (<1.0) 05/27/18 17:10 p-ANCA Titer TNP 05/27/18 17:10 Atypical p-ANCA Titer TNP 05/27/18 17:10 Myeloperoxidase Ab <1.0 AI (<1.0) 05/27/18 17:10 HIV 1&2 Antibody Screen Negative (NEGATIVE) 05/28/18 04:25 Influenza Typ A,B (EIA) Negative for flu a/b (NEGATIVE) 05/25/18 21:11 Ur L.pneumophila Ag Negative (NEGATIVE) 05/27/18 19:00 Mycoplasma pneumon IgM Negative (NEGATIVE) 05/27/18 17:10 - Hospital Course Hospital Course: Pt was admitted for pneumonia and treated with antibiotics. She suffered acute pain, tachycardia, respiratory distress secondary to her lupus and trace pericarditis. She was transferred to ICU and stabilized, then transferred to medical-surgical floor. The pt improved and was discharged on antibiotics, she will follow up with Dr. Zarate. Discharge Exam - Head Exam Head Exam: NORMOCEPHALIC - Eye Exam Eye Exam: EOMI, Normal appearance, PERRL Pupil Exam: NORMAL ACCOMODATION - ENT Exam ENT Exam: Mucous Membranes Moist - Neck Exam Neck exam: Full Rom - Respiratory Exam Respiratory Exam: Decreased Breath Sounds, NORMAL BREATHING PATTERN - Cardiovascular Exam Cardiovascular Exam: REGULAR RHYTHM, +S1, +S2 - GI/Abdominal Exam GI & Abdominal Exam: Normal Bowel Sounds - Extremities Exam Extremities exam: full ROM - Back Exam Back exam: NORMAL INSPECTION - Neurological Exam Neurological exam: Alert, CN II-XII Intact, Oriented x3 - Psychiatric Exam Psychiatric exam: Normal Affect, Normal Mood - Skin Skin Exam: Dry, Pallor, Warm Discharge Plan - Discharge Medications Prescriptions: Amoxicillin/Clavulanate [Augmentin 875 MG-125 MG] 1 tab PO BID #10 tab diltiaZEM [Cardizem] 30 mg PO Q6H #90 tab Furosemide [Lasix] 20 mg PO BID #60 tab Ibuprofen [Motrin Tab] 600 mg PO Q6 #30 tab Pantoprazole [Protonix] 40 mg PO DAILY #14 ect predniSONE [predniSONE Tab] 5 mg PO DAILY #16 tab - Follow Up Plan Condition: FAIR Disposition: HOME/ ROUTINE Instructions: Pneumonia, Adult (DC), Tachycardia (DC) Additional Instructions: follow up with Dr. Morfin june 06 at 1pm follow up [facility] lupus [phone] Referrals: Ajit Fu MD [Staff Provider] - Jevon Vasquez MD [Staff Provider] - Jorge Olivas MD [Medical Doctor] - Marija Morfin MD [Staff Provider] -
--- NOTE | 2018-06-08 11:50 | PQF ---
PROVIDER RESPONSE TEXT: Patient had pneumonia, Sepsis probably secondary to Lupus pneumonitis. Sepsis present on admission, w as treated and resolved prior to discharge REVIEWER QUERY TEXT: Rule Out Sepsis Clarification Sepsis is documented in the Medical Record. Please clarify whether: -- Patient has sepsis - Please document confirmed, suspected or probable causative organism - Please document confirmed, suspected or probable localized infection - Please clarify if sepsis is related to a device - Please clarify if sepsis was present on admission -- Sepsis was ruled out (include corresponding diagnosis for patient?s clinical picture and treatment ) -- Patient had sepsis which is resolved -- Other, please specify The patient's Clinical Indicators include: 05/[address] Thomson documented "sepsis, impending respiratory failure." Query created by: Elvira Gary on 06/07/2018 1:20 PM Electronically signed by: Jevon Vasquez MD 06/08/2018 11:48 AM
== END 2018-06-01 14:31 | disposition home or self-care (01) | DRG 584 ==
LOC: H.ER 13:54 → H.ERHOLD 21:10 → H.TEL 23:40 → OBSVTOIN 05-26 14:16 → H.ICU/CCU 05-27 16:00 → H.MEDSURG1 05-31 22:15
PROVIDERS: ADMIT Family Medicine; ATTEND Family Medicine
PROC: 3E0234Z Introduction of Serum, Toxoid and Vaccine into Muscle, Percutaneous Approach (ICD-10-PCS; 2018-05-25)
PROC: 0W993ZZ Drainage of Right Pleural Cavity, Percutaneous Approach (ICD-10-PCS; principal; 2018-05-30)
PROC: 0W9B3ZZ Drainage of Left Pleural Cavity, Percutaneous Approach (ICD-10-PCS; 2018-05-30)
DX: A41.9 Sepsis, unspecified organism (principal); J18.1 Lobar pneumonia, unspecified organism; J96.01 Acute respiratory failure with hypoxia; M32.13 Lung involvement in systemic lupus erythematosus; K81.0 Acute cholecystitis; F06.31 Mood disorder due to known physiological condition with depressive features; J91.8 Pleural effusion in other conditions classified elsewhere; M32.19 Other organ or system involvement in systemic lupus erythematosus; M32.12 Pericarditis in systemic lupus erythematosus; I31.3 Pericardial effusion (noninflammatory); R09.1 Pleurisy; Z91.14 Patient's other noncompliance with medication regimen; M14.80 Arthropathies in other specified diseases classified elsewhere, unspecified site; R74.0 Nonspecific elevation of levels of transaminase and lactic acid dehydrogenase [LDH]; Z23 Encounter for immunization